=== PATIENT | female | born 1935 | race Caucasian/White ===

== ENCOUNTER 2017-11-10 22:25 | Inpatient (IN) | payer OTHER, MEDICARE ==
--- NOTE | 2017-11-10 22:44 | DR.GENAD ---
HPI - PCP Primary Care Physician: brad - Complaint/Symptoms Chief Complaint Doctors Comments: An 82 y/o female in E.D. via EMS per family request as she took her a.m. set of meds this evening instead of the evening meds. She has no complains. Upon inquiry as to why she did take her meds this morning she states that she just forgot to take meds. today until this evening when her asked her about her medication. When he brought her the pill box she picked the morning meds. instead of the night time pills. Her family thinks that is odd for her. - Nurses notes reviewed Nurses Notes Review: Yes - Source History Provided: Patient, Family Member - Mode of Arrival Mode of Arrival: EMS - Associated Signs and Symptoms Associated Signs and Symptoms: none PMH - PMH Past Medical History: CHF, Hypertension Past Surgical History: Yes Surgical History: Appendectomy - Social History Do you use any recreational Drugs:: No ROS - Review of Systems Constitutional: No Symptoms Reported Eyes: No Symptoms Reported ENTM: No Symptoms Reported Respiratoy: No Symptoms Reported Cardiovascular: No Symptoms Reported Gastrointestinal/Abdominal: No Symptoms Reported Genitourinary: No Symptoms Reported Neurological: No Symptoms Reported Musculoskeletal: No Symptoms Reported Integumentary: No Symptoms Reported Hematologic/Lymphatic: No Symptoms Reported Endocrine: No Symptoms Reported Psychiatric: No Symptoms Reported All Other Systems: Reviewed and Negative PE - Vital Signs Vitals: Temperature 97.9 F Pulse Rate [Apical] 92 Pulse Rate 95 Respiratory Rate 16 Blood Pressure [Right Arm] 170/94 Blood Pressure [Left Arm] 149/65 Blood Pressure 161/72 O2 Sat by Pulse Oximetry 95 - General Limitations: No Limitations General Appearance: Alert, In No Apparent Distress - Head Head Exam: Normal Inspection - Eyes Eye exam: Normal Appearance, PERRL, EOMI - ENT ENT Exam: Normal Exam - Neck Neck Exam: Normal Inspection, Full ROM, Trachea Midline - Chest Chest Inspection: Normal Inspection, Symmetric Chest Wall Rise - Respiratory Respiratory Exam: Normal Lung Sounds Bilat - Cardiovascular Cardiovascular Exam: Regular Rate, Normal Rhythm - Abdominal Exam Abdominal Exam: Normal Inspection, Normal Bowel Sounds, Soft - Extremities Extremities Exam: Normal Inspection - Back Back Exam: Normal Inspection - Neurologic Neurological Exam: Alert, Oriented X3, CN II-XII Intact - Psychiatric Psychiatric Exam: Normal Affect, Normal Mood - Skin Skin Exam: Warm, Intact, Other (There is a healing vertical scar over the right knee. It has no dehiscence. ) Course - Consultation Call Returned: 00:05 Consultation Comments: Dr. Alcaraz agrees request for admission to obs. status - Education/Counseling Education/Counseling: Patient, Family, Counseling Educated On: Treatment, Diagnosis, Prognosis, Needs for Follow Up ROR - Labs Reviewed Result Diagrams: 11/10/17 22:45 11/10/17 22:45 Laboratory: WBC 8.9 X10^3/uL (3.6-10.0) 11/10/17 22:45 RBC 2.92 X10^6/uL (3.5-5.4) L 11/10/17 22:45 Hgb 11.6 g/dL (12.0-16.0) L 11/10/17 22:45 Hct 32.9 % (36.0-47.0) L 11/10/17 22:45 MCV 112.5 fL (80.0-100.0) H 11/10/17 22:45 MCH 39.7 pg (27.0-34.0) H 11/10/17 22:45 MCHC 35.3 g/dL (33.0-35.0) H 11/10/17 22:45 RDW 15.8 % (11.6-16.5) 11/10/17 22:45 Plt Count 319 X10^3/uL (150.0-450.0) 11/10/17 22:45 Plt Count Comment Adequate (ADEQUATE) 11/10/17 22:45 MPV 7.9 fL (7.4-11.0) 11/10/17 22:45 Neut % 82.0 % (42.0-75.0) H 11/10/17 22:45 Lymph % 8.7 % (21.0-51.0) L 11/10/17 22:45 [place] % 5.3 % (0.0-13.0) 11/10/17 22:45 Eos % 2.6 % (0.9-2.9) 11/10/17 22:45 Baso % 1.4 % (0.2-1.0) H 11/10/17 22:45 Neut # 7.3 x10^3/uL (2.2-4.8) H 11/10/17 22:45 Lymph # 0.8 X10^3/uL (1.3-2.9) L 11/10/17 22:45 [place] # 0.5 x10^3/uL (0.3-0.8) 11/10/17 22:45 Eos # 0.2 x10^3/uL (0.0-0.2) 11/10/17 22:45 Baso # 0.1 X10^3/uL (0.0-0.1) 11/10/17 22:45 Absolute Nucleated RBC 0.0 /100WBC 11/10/17 22:45 Plt Morphology Comment Normal (NORMAL) 11/10/17 22:45 RBC Morphology Abnormal (NORMAL) A 11/10/17 22:45 Macrocytosis 2+ A 11/10/17 22:45 Sodium 126 mmol/L (136-145) L 11/10/17 22:45 Corrected Sodium TNP 11/10/17 22:45 Potassium 4.7 mmol/L (3.5-5.1) 11/10/17 22:45 Chloride 92 mmol/L (98-107) L 11/10/17 22:45 Carbon Dioxide 28.8 mmol/L (21-32) 11/10/17 22:45 BUN 11 mg/dL (7-18) 11/10/17 22:45 Creatinine 0.61 mg/dL (0.55-1.02) 11/10/17 22:45 Est GFR (MDRD) Af Amer > 60 (>60) 11/10/17 22:45 Est GFR (MDRD) Non-Af > 60 (>60) 11/10/17 22:45 Glucose 103 mg/dL (65-99) H 11/10/17 22:45 Calcium 8.3 mg/dL (8.5-10.1) L 11/10/17 22:45 Corrected Calcium 8.9 mg/dL (8.5-10.1) 11/10/17 22:45 Total Bilirubin 0.30 mg/dL (0.2-1.0) 11/10/17 22:45 AST 15 Units/L (15-37) 11/10/17 22:45 ALT 15 Units/L (12-78) 11/10/17 22:45 Alkaline Phosphatase 61 Units/L (46-116) 11/10/17 22:45 Total Protein 6.1 g/dL (6.4-8.2) L 11/10/17 22:45 Albumin 3.2 g/dL (3.4-5.0) L 11/10/17 22:45 Globulin 2.9 g/dL (2.5-4.5) 11/10/17 22:45 Albumin/Globulin Ratio 1.1 Ratio (1.1-2.1) 11/10/17 22:45 Specimen Type Clean catch urine 11/10/17 22:57 Urine Color Yellow (YELLOW) 11/10/17 22:57 Urine Appearance Clear (CLEAR) 11/10/17 22:57 Urine pH 8.0 (5.0 - 8.0) 11/10/17 22:57 Ur Specific [place] 1.015 (1.000-1.030) 11/10/17 22:57 Urine Protein Negative (NEGATIVE) 11/10/17 22:57 Urine Glucose (UA) Negative (NEGATIVE) 11/10/17 22:57 Urine Ketones Negative (NEGATIVE) 11/10/17 22:57 Urine Occult Blood Negative (NEGATIVE) 11/10/17 22:57 Urine Nitrite Negative (NEGATIVE) 11/10/17 22:57 Urine Bilirubin Negative (NEGATIVE) 11/10/17 22:57 Urine Urobilinogen Normal (NORMAL) 11/10/17 22:57 Ur Leukocyte Esterase 1+ (NEGATIVE) 11/10/17 22:57 Urine RBC None seen /HPF (NEGATIVE) 11/10/17 22:57 Urine WBC 0-2 /HPF (NEGATIVE) 11/10/17 22:57 Ur Squamous Epith Cells Rare /HPF (NEGATIVE) 11/10/17 22:57 Urine Bacteria Trace /HPF (NEGATIVE) 11/10/17 22:57 Ur Culture Indicated? No/not indicated 11/10/17 22:57 - Diagnosis Discharge Problem: Hyponatremia, Confusion - Discharge Plan Disposition: 09 ADMITTED INPATIENT Condition: Stable - Follow ups/Referrals Follow ups/Referrals: Carlos Gavin [Primary Care Provider] - 3 days - Instructions
[2017-11-10 22:58] LABS: BASOPHILS # (AUTO) 0.1 X10^3/uL (0.0-0.1); BASOPHILS % (AUTO) 1.4 % (0.2-1.0); EOSINOPHILS # (AUTO) 0.2 x10^3/uL (0.0-0.2); EOSINOPHILS % (AUTO) 2.6 % (0.9-2.9); HEMATOCRIT 32.9 % (36.0-47.0); HEMOGLOBIN 11.6 g/dL (12.0-16.0); LYMPHOCYTES # (AUTO) 0.8 X10^3/uL (1.3-2.9); LYMPHOCYTES % (AUTO) 8.7 % (21.0-51.0); MEAN CORPUSCULAR HEMOGLOBIN 39.7 pg (27.0-34.0); MEAN CORPUSCULAR HGB CONC 35.3 g/dL (33.0-35.0); MEAN CORPUSCULAR VOLUME 112.5 fL (80.0-100.0); MEAN PLATELET VOLUME 7.9 fL (7.4-11.0); MONOCYTES # (AUTO) 0.5 x10^3/uL (0.3-0.8); MONOCYTES % (AUTO) 5.3 % (0.0-13.0); NEUTROPHILS # (AUTO) 7.3 x10^3/uL (2.2-4.8); PLATELET COUNT 319 X10^3/uL (150.0-450.0); RED BLOOD COUNT 2.92 X10^6/uL (3.5-5.4); RED CELL DISTRIBUTION WIDTH 15.8 % (11.6-16.5); WHITE BLOOD COUNT 8.9 X10^3/uL (3.6-10.0)
--- NOTE | 2017-11-10 23:04 | RAD ---
Chest, one view Indication: Hypertension, CHF Comparison: 01/19/2015 Findings: The heart size is normal. No focal consolidation, significant effusion or pneumothorax is i dentified. No acute osseous abnormality is seen. Impression: No acute cardiopulmonary abnormality. Reported By:
[2017-11-10 23:06] LABS: BILIRUBIN,URINE NEGATIVE (NEGATIVE); BLOOD/HEMOGLOBIN,URINE NEGATIVE (NEGATIVE); GLUCOSE, URINE NEGATIVE (NEGATIVE); KETONES,URINE NEGATIVE (NEGATIVE); LEUKOCYTE ESTERASE ,URINE 1+ (NEGATIVE); NITRITES,URINE NEGATIVE (NEGATIVE); PROTEIN,URINE NEGATIVE (NEGATIVE); UROBILINOGEN,URINE NORMAL (NORMAL)
[2017-11-10 23:06] LABS: ALANINE AMINOTRANSFERASE 15 Units/L (12-78); ALBUMIN 3.2 g/dL (3.4-5.0); ALKALINE PHOSPHATASE 61 Units/L (46-116); ASPARTATE AMINO TRANSFERASE 15 Units/L (15-37); BLOOD UREA NITROGEN 11 mg/dL (7-18); CALCIUM 8.3 mg/dL (8.5-10.1); CARBON DIOXIDE 28.8 mmol/L (21-32); CHLORIDE 92 mmol/L (98-107); COR CA(FOR HYPOALB) 8.9 mg/dL (8.5-10.1); CREATININE 0.61 mg/dL (0.55-1.02); SODIUM 126 mmol/L (136-145); TOTAL PROTEIN 6.1 g/dL (6.4-8.2); eGFR BLACK RACES > 60 (>60); eGFR NON BLACK RACES > 60 (>60)
[2017-11-10 23:17] LABS: APPEARANCE,URINE CLEAR (CLEAR); BACTERIA,URINE TRACE /HPF (NEGATIVE); COLOR,URINE YELLOW (YELLOW); RBC,URINE NONE SEEN /HPF (NEGATIVE); SQUAMOUS EPITHELIAL CELL,UR RARE /HPF (NEGATIVE)
[2017-11-10 23:19] LABS: PLATELET MORPHOLOGY COMMENT NORMAL (NORMAL)
[2017-11-10] MEDS: NS 1000 ML 1,000 ML IV SCH (23:42)
[2017-11-11] MEDS: NS 1000 ML 1,000 ML IV SCH ×4 (01:13→21:04)
[2017-11-11 01:27] VITALS: BMI 20.7
[2017-11-11 05:44] LABS: ALANINE AMINOTRANSFERASE 14 Units/L (12-78); ALBUMIN 2.9 g/dL (3.4-5.0); ALKALINE PHOSPHATASE 65 Units/L (46-116); ASPARTATE AMINO TRANSFERASE 16 Units/L (15-37); BLOOD UREA NITROGEN 9 mg/dL (7-18); CALCIUM 7.8 mg/dL (8.5-10.1); CHLORIDE 95 mmol/L (98-107); COR CA(FOR HYPOALB) 8.7 mg/dL (8.5-10.1); CREATININE 0.51 mg/dL (0.55-1.02); SODIUM 127 mmol/L (136-145); TOTAL PROTEIN 5.7 g/dL (6.4-8.2); eGFR BLACK RACES > 60 (>60); eGFR NON BLACK RACES > 60 (>60)
[2017-11-11] MEDS: SYNTHROID 75 mcg TAB PO SCH (16:49)
--- NOTE | 2017-11-11 19:13 | CT ---
CT head without contrast Indication: Confusion Technique: Axial images from the skullbase to the vertex without contrast. Coronal and sagittal refor mats provided. Comparison: None available Findings: There is no acute intracranial hemorrhage, mass or mass effect. No extra-axial fluid collec tion or abnormal area of hypoattenuation suggest infarction seen. Mild atrophy with ex vacuo ventricl e and sulcal enlargement noted. Review of bone windows demonstrates no destructive osseous lesion. Th ere is opacification of the left maxillary sinus. The remaining sinuses are clear. Mastoid air cells are clear. Impression: 1. No acute intracranial hemorrhage, with mild atrophic change. 2. Opacification of the left maxillary sinus, likely chronic. Reported By:
[2017-11-11] MEDS: HYDREA PO SCH (20:43)
[2017-11-11] MEDS: ALTACE CAP 10 MG PO SCH (20:43)
[2017-11-11] MEDS: COREG TAB 6.25 MG PO SCH (20:43)
[2017-11-11] MEDS ORDERED: RESTORIL CAP 15 MG PO PRN (20:49)
[2017-11-12] MEDS: NS 1000 ML 1,000 ML IV SCH (04:57)
[2017-11-12 06:17] LABS: BASOPHILS # (AUTO) 0.1 X10^3/uL (0.0-0.1); BASOPHILS % (AUTO) 1.2 % (0.2-1.0); EOSINOPHILS # (AUTO) 0.2 x10^3/uL (0.0-0.2); EOSINOPHILS % (AUTO) 2.2 % (0.9-2.9); HEMATOCRIT 31.6 % (36.0-47.0); LYMPHOCYTES # (AUTO) 0.9 X10^3/uL (1.3-2.9); LYMPHOCYTES % (AUTO) 12.8 % (21.0-51.0); MEAN CORPUSCULAR HEMOGLOBIN 39.6 pg (27.0-34.0); MEAN CORPUSCULAR HGB CONC 34.9 g/dL (33.0-35.0); MEAN CORPUSCULAR VOLUME 113.5 fL (80.0-100.0); MEAN PLATELET VOLUME 8.3 fL (7.4-11.0); MONOCYTES # (AUTO) 0.4 x10^3/uL (0.3-0.8); NEUTROPHILS # (AUTO) 5.3 x10^3/uL (2.2-4.8); NEUTROPHILS % (AUTO) 77.8 % (42.0-75.0); PLATELET COUNT 287 X10^3/uL (150.0-450.0); RED BLOOD COUNT 2.78 X10^6/uL (3.5-5.4); WHITE BLOOD COUNT 6.8 X10^3/uL (3.6-10.0)
[2017-11-12 06:23] LABS: ALANINE AMINOTRANSFERASE 15 Units/L (12-78); ALKALINE PHOSPHATASE 49 Units/L (46-116); ASPARTATE AMINO TRANSFERASE 15 Units/L (15-37); BLOOD UREA NITROGEN 6 mg/dL (7-18); CARBON DIOXIDE 26.9 mmol/L (21-32); CHLORIDE 96 mmol/L (98-107); COR CA(FOR HYPOALB) 8.8 mg/dL (8.5-10.1); CREATININE 0.56 mg/dL (0.55-1.02); SODIUM 129 mmol/L (136-145); TOTAL PROTEIN 5.9 g/dL (6.4-8.2); eGFR BLACK RACES > 60 (>60); eGFR NON BLACK RACES > 60 (>60)
[2017-11-12 06:52] LABS: PLATELET MORPHOLOGY COMMENT NORMAL (NORMAL)
[2017-11-12] MEDS: SYNTHROID 75 mcg TAB PO SCH (08:55)
[2017-11-12] MEDS: ALTACE CAP 10 MG PO SCH (08:55)
[2017-11-12] MEDS: HYDREA PO SCH (08:55)
[2017-11-12] MEDS: COREG TAB 6.25 MG PO SCH (08:56)
[2017-11-12] MEDS ORDERED: FOLIC ACID 0.4 MG PO SCH (09:00)
[2017-11-12] MEDS ORDERED: FOLIC ACID TAB 1 MG PO SCH (09:00)
[2017-11-12] MEDS ORDERED: TAB-A-VITE PO SCH (09:00)
[2017-11-12 10:19] VITALS: BP 146/67
== END 2017-11-12 15:10 | disposition home or self-care (01) | DRG 641 ==
LOC: ER 22:28 → OBSVTOIN 11-11 00:15 → MED/SURG 11-11 00:15
PROVIDERS: ADMIT Internal Medicine; ATTEND Internal Medicine
DX: E87.1 Hypo-osmolality and hyponatremia (principal); I10 Essential (primary) hypertension; R41.82 Altered mental status, unspecified; E03.8 Other specified hypothyroidism; I50.9 Heart failure, unspecified; F03.90 Unspecified dementia, unspecified severity, without behavioral disturbance, psychotic disturbance, mood disturbance, and anxiety
CPT/HCPCS: 36415; 70450; 71010; 80053; 81001; 85025; 96365; 96367; 99221; 99238; 99283; 99284; A4216; A4222; S0176

== ENCOUNTER 2017-11-17 10:56 | Emergency (ER) | payer OTHER, MEDICARE ==
[2017-11-17 11:06] VITALS: BP 159/69; BMI 17.2
--- NOTE | 2017-11-17 11:15 | DR.GENAD ---
HPI - PCP Primary Care Physician: brad - Complaint/Symptoms Chief Complaint Doctors Comments: Patient was admitted on last week for hyponatremia diagnosis of dyspnea,chest pain, confusion and hyponatremia. She presents with conplaint that she is acting like she did on last week. She says things that are not related to any conversation; she reaches out to shake your hand several times during a conversation, she repeats things that are unrelated to conversation. The son-In- Chief Complaint:: "pt family said pt was altered and feel in the shower" Self Treatment fo Chief Complaint: pt knows were she is and is able to answer all questions she said she dont know why she came she was just hungry. no sing of fall on pt - Source History Provided: Patient - Mode of Arrival Mode of Arrival: EMS - Timing Onset of Chief Complaint: 11/17/17 PMH - PMH Past Medical History: Yes Past Medical History: CHF, Hypertension Past Surgical History: Yes Surgical History: Ortho Surgery - Family History History of Family Medical Conditions: No - Social History Does patient currently use any type of tobacco product: No Have you used tobacco products in the last 12 months: No Type of Tobacco Use: None Does any household member use tobacco: No Alcohol Use: None Do you use any recreational Drugs:: No Lives With: Family Lives Where: Home - infectious screening In the last 2 months have you had wt loss of >10#?: NO Have you had fever, night sweats or hemotysis?: No Have you traveled outside the country in the last 6 months?: No Isolation: Standard PE - Vital Signs Vitals: Temperature 98.1 F Pulse Rate 93 Respiratory Rate 18 Blood Pressure [Right Arm] 147/67 Blood Pressure [Left Arm] 146/67 Blood Pressure 159/69 O2 Sat by Pulse Oximetry 97 Course - Treatment Treatment: Patient hydrated with 1L NS, - Consultation Called: 15:10 (Discussed with Dr Alcaraz he thinks patients problem is more dementia can be managed as out patient ) ROR - Labs Reviewed Result Diagrams: 11/17/17 11:25 11/17/17 11:25 Laboratory: WBC 9.2 X10^3/uL (3.6-10.0) 11/17/17 11:25 RBC 3.24 X10^6/uL (3.5-5.4) L 11/17/17 11:25 Hgb 12.6 g/dL (12.0-16.0) 11/17/17 11:25 Hct 36.8 % (36.0-47.0) 11/17/17 11:25 MCV 113.5 fL (80.0-100.0) H 11/17/17 11:25 MCH 38.9 pg (27.0-34.0) H 11/17/17 11:25 MCHC 34.3 g/dL (33.0-35.0) 11/17/17 11:25 RDW 15.7 % (11.6-16.5) 11/17/17 11:25 Plt Count 308 X10^3/uL (150.0-450.0) 11/17/17 11:25 Plt Count Comment Adequate (ADEQUATE) 11/17/17 11:25 MPV 8.2 fL (7.4-11.0) 11/17/17 11:25 Neut % 84.5 % (42.0-75.0) H 11/17/17 11:25 Lymph % 8.1 % (21.0-51.0) L 11/17/17 11:25 [place] % 4.2 % (0.0-13.0) 11/17/17 11:25 Eos % 2.1 % (0.9-2.9) 11/17/17 11:25 Baso % 1.1 % (0.2-1.0) H 11/17/17 11:25 Neut # 7.8 x10^3/uL (2.2-4.8) H 11/17/17 11:25 Lymph # 0.7 X10^3/uL (1.3-2.9) L 11/17/17 11:25 [place] # 0.4 x10^3/uL (0.3-0.8) 11/17/17 11:25 Eos # 0.2 x10^3/uL (0.0-0.2) 11/17/17 11:25 Baso # 0.1 X10^3/uL (0.0-0.1) 11/17/17 11:25 Absolute Nucleated RBC 0.1 /100WBC 11/17/17 11:25 Plt Morphology Comment Normal (NORMAL) 11/17/17 11:25 RBC Morphology Abnormal (NORMAL) A 11/17/17 11:25 Anisocytosis Slight A 11/17/17 11:25 Macrocytosis 2+ A 11/17/17 11:25 Sodium 129 mmol/L (136-145) L 11/17/17 11:25 Corrected Sodium TNP 11/17/17 11:25 Potassium 4.7 mmol/L (3.5-5.1) 11/17/17 11:25 Chloride 94 mmol/L (98-107) L 11/17/17 11:25 Carbon Dioxide 31.1 mmol/L (21-32) 11/17/17 11:25 BUN 6 mg/dL (7-18) L 11/17/17 11:25 Creatinine 0.66 mg/dL (0.55-1.02) 11/17/17 11:25 Est GFR (MDRD) Af Amer > 60 (>60) 11/17/17 11:25 Est GFR (MDRD) Non-Af > 60 (>60) 11/17/17 11:25 Glucose 108 mg/dL (65-99) H 11/17/17 11:25 Calcium 8.7 mg/dL (8.5-10.1) 11/17/17 11:25 Corrected Calcium 9.3 mg/dL (8.5-10.1) 11/17/17 11:25 Total Bilirubin 0.70 mg/dL (0.2-1.0) 11/17/17 11:25 AST 19 Units/L (15-37) 11/17/17 11:25 ALT 16 Units/L (12-78) 11/17/17 11:25 Alkaline Phosphatase 55 Units/L (46-116) 11/17/17 11:25 Creatine Kinase 27 Units/L (26-192) 11/17/17 11:25 CK-MB (CK-2) < 1.0 ng/mL (0-4.0) 11/17/17 11:25 CK/CKMB % Calc 3.7 % (<4) 11/17/17 11:25 Troponin I < 0.02 ng/mL (0-1.5) 11/17/17 11:25 Total Protein 6.4 g/dL (6.4-8.2) 11/17/17 11:25 Albumin 3.2 g/dL (3.4-5.0) L 11/17/17 11:25 Globulin 3.2 g/dL (2.5-4.5) 11/17/17 11:25 Albumin/Globulin Ratio 1.0 Ratio (1.1-2.1) L 11/17/17 11:25 TSH 3rd Generation 2.545 uIU/mL (0.358-3.74) 11/17/17 11:25 Specimen Type Random urine 11/17/17 13:11 Urine Color Yellow (YELLOW) 11/17/17 13:11 Urine Appearance Slightly hazy (CLEAR) 11/17/17 13:11 Urine pH 8.0 (5.0 - 8.0) 11/17/17 13:11 Ur Specific [place] 1.015 (1.000-1.030) 11/17/17 13:11 Urine Protein 1+ (NEGATIVE) 11/17/17 13:11 Urine Glucose (UA) Negative (NEGATIVE) 11/17/17 13:11 Urine Ketones 3+ (NEGATIVE) 11/17/17 13:11 Urine Occult Blood 2+ (NEGATIVE) 11/17/17 13:11 Urine Nitrite Negative (NEGATIVE) 11/17/17 13:11 Urine Bilirubin Negative (NEGATIVE) 11/17/17 13:11 Urine Urobilinogen Normal (NORMAL) 11/17/17 13:11 Ur Leukocyte Esterase Negative (NEGATIVE) 11/17/17 13:11 Urine RBC 0 - 3 /HPF (NEGATIVE) 11/17/17 13:11 Urine WBC Rare /HPF (NEGATIVE) 11/17/17 13:11 Ur Squamous Epith Cells Few /HPF (NEGATIVE) 11/17/17 13:11 Urine Bacteria Negative /HPF (NEGATIVE) 11/17/17 13:11 Ur Culture Indicated? No/not indicated 11/17/17 13:11 - Discharge Plan Condition: Stable - Follow ups/Referrals Follow ups/Referrals: Carlos Gavin [Primary Care Provider] - 3 days - Instructions
[2017-11-17 11:47] LABS: BASOPHILS # (AUTO) 0.1 X10^3/uL (0.0-0.1); BASOPHILS % (AUTO) 1.1 % (0.2-1.0); EOSINOPHILS # (AUTO) 0.2 x10^3/uL (0.0-0.2); EOSINOPHILS % (AUTO) 2.1 % (0.9-2.9); HEMATOCRIT 36.8 % (36.0-47.0); HEMOGLOBIN 12.6 g/dL (12.0-16.0); LYMPHOCYTES # (AUTO) 0.7 X10^3/uL (1.3-2.9); LYMPHOCYTES % (AUTO) 8.1 % (21.0-51.0); MEAN CORPUSCULAR HEMOGLOBIN 38.9 pg (27.0-34.0); MEAN CORPUSCULAR HGB CONC 34.3 g/dL (33.0-35.0); MEAN CORPUSCULAR VOLUME 113.5 fL (80.0-100.0); MEAN PLATELET VOLUME 8.2 fL (7.4-11.0); MONOCYTES # (AUTO) 0.4 x10^3/uL (0.3-0.8); MONOCYTES % (AUTO) 4.2 % (0.0-13.0); NEUTROPHILS # (AUTO) 7.8 x10^3/uL (2.2-4.8); NEUTROPHILS % (AUTO) 84.5 % (42.0-75.0); PLATELET COUNT 308 X10^3/uL (150.0-450.0); RED BLOOD COUNT 3.24 X10^6/uL (3.5-5.4); RED CELL DISTRIBUTION WIDTH 15.7 % (11.6-16.5); WHITE BLOOD COUNT 9.2 X10^3/uL (3.6-10.0)
[2017-11-17 12:05] LABS: BLOOD UREA NITROGEN 6 mg/dL (7-18); CALCIUM 8.7 mg/dL (8.5-10.1); CARBON DIOXIDE 31.1 mmol/L (21-32); CHLORIDE 94 mmol/L (98-107); CREATININE 0.66 mg/dL (0.55-1.02); SODIUM 129 mmol/L (136-145); TROPONIN I < 0.02 ng/mL (0-1.5); eGFR BLACK RACES > 60 (>60); eGFR NON BLACK RACES > 60 (>60)
[2017-11-17 12:09] LABS: ANISOCYTOSIS SLIGHT; PLATELET MORPHOLOGY COMMENT NORMAL (NORMAL)
[2017-11-17 12:20] LABS: ALANINE AMINOTRANSFERASE 16 Units/L (12-78); ALBUMIN 3.2 g/dL (3.4-5.0); ALKALINE PHOSPHATASE 55 Units/L (46-116); ASPARTATE AMINO TRANSFERASE 19 Units/L (15-37); CKMB % 3.7 % (<4); COR CA(FOR HYPOALB) 9.3 mg/dL (8.5-10.1); CREATINE KINASE 27 Units/L (26-192); CREATINE KINASE MB < 1.0 ng/mL (0-4.0); TOTAL PROTEIN 6.4 g/dL (6.4-8.2)
[2017-11-17 13:18] LABS: BILIRUBIN,URINE NEGATIVE (NEGATIVE); BLOOD/HEMOGLOBIN,URINE 2+ (NEGATIVE); GLUCOSE, URINE NEGATIVE (NEGATIVE); KETONES,URINE 3+ (NEGATIVE); LEUKOCYTE ESTERASE ,URINE NEGATIVE (NEGATIVE); NITRITES,URINE NEGATIVE (NEGATIVE); PROTEIN,URINE 1+ (NEGATIVE); UROBILINOGEN,URINE NORMAL (NORMAL)
[2017-11-17 13:52] LABS: APPEARANCE,URINE SLIGHTLY HAZY (CLEAR); BACTERIA,URINE NEGATIVE /HPF (NEGATIVE); COLOR,URINE YELLOW (YELLOW); RBC,URINE 0 - 3 /HPF (NEGATIVE); SQUAMOUS EPITHELIAL CELL,UR FEW /HPF (NEGATIVE)
[2017-11-17] MEDS ORDERED: NS 1000 ML 1,000 ML ONE (14:05)
[2017-11-17] MEDS ORDERED: NS 1000 ML 1,000 ML IV ONE (14:23)
[2017-11-17 16:07] LABS: BLOOD UREA NITROGEN 7 mg/dL (7-18); CALCIUM 8.1 mg/dL (8.5-10.1); CARBON DIOXIDE 30.1 mmol/L (21-32); CHLORIDE 97 mmol/L (98-107); CREATININE 0.53 mg/dL (0.55-1.02); SODIUM 130 mmol/L (136-145); eGFR BLACK RACES > 60 (>60); eGFR NON BLACK RACES > 60 (>60)
== END 2017-11-17 17:03 | disposition home or self-care (01) ==
LOC: ER 10:58
DX: E87.1 Hypo-osmolality and hyponatremia (principal); I50.89 Other heart failure; I10 Essential (primary) hypertension
CPT/HCPCS: 36415; 80048; 80053; 81001; 82550; 82553; 84443; 84484; 85025; 93005; 93010; 96365; 96367; 99282; 99283; A4222

== ENCOUNTER 2017-11-22 13:37 | Inpatient (IN) | payer OTHER, MEDICARE ==
[2017-11-22 13:50] VITALS: BMI 23.1
--- NOTE | 2017-11-22 13:58 | DR.GENAD ---
HPI - PCP Primary Care Physician: DARION REILLY - HPI Comment HPI Comment: PATIENT LEFT HOSPITAL RECENT FOR HYPONATREMIA AND CONFUSION. NO FEVER. - Complaint/Symptoms Chief Complaint Doctors Comments: GENERALIZE WEAKNESS AND INCREASING CONFUSION TIMES FEW WEEKS. Chief Complaint:: PTS FAMILY STATES THE WEEKEND BEFORE [facility] , PT STARTED HAVING AMS, CONFUSION, PTS FAMILY STATES SHE HAS BEEN UP FOR 2 NIGTS,, - Nurses notes reviewed Nurses Notes Review: Yes - Source History Provided: Patient - Mode of Arrival Mode of Arrival: Wheelchair - Timing Onset of Chief Complaint: 11/06/17 Came on: Suddenly - Duration Duration: Constant Duration: Days - Severity Severity: Moderate PMH - PMH Past Medical History: Yes Past Medical History: CHF, Hypertension Past Surgical History: Yes Surgical History: Ortho Surgery - Family History History of Family Medical Conditions: No - Social History Does patient currently use any type of tobacco product: No Have you used tobacco products in the last 12 months: No Type of Tobacco Use: None Does any household member use tobacco: No Alcohol Use: None Do you use any recreational Drugs:: No Lives Where: Home - infectious screening In the last 2 months have you had wt loss of >10#?: NO Have you had fever, night sweats or hemotysis?: No Have you traveled outside the country in the last 6 months?: No Isolation: Standard ROS - Review of Systems Constitutional: Weakness, Fatigue, Loss of Appetite. negative: Chills, Fever Eyes: negative: Eye Pain, Discharge ENTM: negative: Ear Pain, Nose Discharge, Nose Congestion, Throat Pain Respiratoy: Short of Breath. negative: Productive Cough, Non-Productive Cough, Wheezing, Hemoptysis Cardiovascular: negative: Chest Pain, Edema Gastrointestinal/Abdominal: negative: Abdominal Pain, Diarrhea, Nausea, Vomiting Genitourinary: negative: Hematuria Neurological: Weakness Musculoskeletal: No Symptoms Reported Integumentary: No Symptoms Reported Hematologic/Lymphatic: No Symptoms Reported Endocrine: No Symptoms Reported All Other Systems: Reviewed and Negative PE - Vital Signs Vitals: Temperature 96.4 F Pulse Rate 110 Respiratory Rate 20 Blood Pressure [Right Arm] 147/67 Blood Pressure [Left Arm] 146/67 Blood Pressure 185/105 O2 Sat by Pulse Oximetry 94 - General Limitations: No Limitations General Appearance: Alert - Head Head Exam: Normal Inspection - Eyes Eye exam: Normal Appearance - ENT ENT Exam: Normal External Ear Exam External Ear Exam: Normal External Inspection TM/Canal Exam: Bilateral Normal Nose Exam: Normal Nose Exam Mouth Exam: Normal Inspection Throat Exam: Normal Inspection - Neck Neck Exam: Trachea Midline - Chest Chest Inspection: Symmetric Chest Wall Rise - Respiratory Respiratory Exam: Normal Lung Sounds Bilat Respiratory Exam: Bilateral Rhonchi, Lower Rhonchi - Cardiovascular Cardiovascular Exam: Regular Rate, Normal Rhythm, Normal Heart Sounds - Abdominal Exam Abdominal Exam: Normal Bowel Sounds, Soft. negative: Tenderness - Extremities Extremities Exam: Normal Inspection - Back Back Exam: Normal Inspection - Neurologic Neurological Exam: Alert, Other (CONFUSE) - Psychiatric Psychiatric Exam: Flat Affect - Skin Skin Exam: Normal Color MDM - Additional Information Additional Information Obtained From: Family - Differential Diagnosis Differential Diagnosis: CVA, DEMENTIA, UTI, TIA, HTN Course - Consultation Consultation Comments: DISCUSS PATIENT WITH DR. ORLANDO. HE WILL ADMIT PATIENT. - Education/Counseling Education/Counseling: Patient, Education Educated On: Treatment, Diagnosis ROR - Labs Reviewed Result Diagrams: 11/22/17 14:32 11/22/17 14:32 - XRAY XRAY Interpreted by: Radiologist XRAY Findings: REPORT DISCUSS WITH PATIENT AND HER FAMILY. - EKG Rhythm: NSR (EKG NOTED) - Diagnosis Discharge Problem: Hyponatremia, Dehydration Mental status alteration Qualifiers: Altered mental status type: transient alteration of awareness Qualified Code(s) : R40.4 - Transient alteration of awareness HTN (hypertension) Qualifiers: Hypertension type: essential hypertension Qualified Code(s): I10 - Essential ( primary) hypertension - Discharge Plan Disposition: HOME, SELF-CARE Condition: Stable - Follow ups/Referrals - Instructions
[2017-11-22 14:38] LABS: BASOPHILS # (AUTO) 0.1 X10^3/uL (0.0-0.1); BASOPHILS % (AUTO) 0.5 % (0.2-1.0); EOSINOPHILS # (AUTO) 0.1 x10^3/uL (0.0-0.2); EOSINOPHILS % (AUTO) 0.4 % (0.9-2.9); HEMATOCRIT 37.4 % (36.0-47.0); LYMPHOCYTES # (AUTO) 0.9 X10^3/uL (1.3-2.9); LYMPHOCYTES % (AUTO) 5.5 % (21.0-51.0); MEAN CORPUSCULAR HEMOGLOBIN 38.7 pg (27.0-34.0); MEAN CORPUSCULAR HGB CONC 34.8 g/dL (33.0-35.0); MEAN CORPUSCULAR VOLUME 111.4 fL (80.0-100.0); MEAN PLATELET VOLUME 7.7 fL (7.4-11.0); MONOCYTES # (AUTO) 0.8 x10^3/uL (0.3-0.8); NEUTROPHILS # (AUTO) 14.4 x10^3/uL (2.2-4.8); NEUTROPHILS % (AUTO) 88.6 % (42.0-75.0); PLATELET COUNT 386 X10^3/uL (150.0-450.0); RED BLOOD COUNT 3.36 X10^6/uL (3.5-5.4); RED CELL DISTRIBUTION WIDTH 16.1 % (11.6-16.5); WHITE BLOOD COUNT 16.2 X10^3/uL (3.6-10.0)
[2017-11-22 14:51] LABS: BAND NEUTROPHILS % 2 % (0-10); PLATELET MORPHOLOGY COMMENT NORMAL (NORMAL)
[2017-11-22 15:00] LABS: ALANINE AMINOTRANSFERASE 16 Units/L (12-78); ALBUMIN 3.5 g/dL (3.4-5.0); ALKALINE PHOSPHATASE 60 Units/L (46-116); ASPARTATE AMINO TRANSFERASE 21 Units/L (15-37); BLOOD UREA NITROGEN 11 mg/dL (7-18); CALCIUM 9.3 mg/dL (8.5-10.1); CARBON DIOXIDE 25.6 mmol/L (21-32); CHLORIDE 90 mmol/L (98-107); CKMB % 3.5 % (<4); COR NA(FOR HYPERGLY) 126 mmol/L (136-145); CREATINE KINASE 46 Units/L (26-192); CREATINE KINASE MB 1.6 ng/mL (0-4.0); CREATININE 0.67 mg/dL (0.55-1.02); TOTAL PROTEIN 6.8 g/dL (6.4-8.2); TROPONIN I 0.03 ng/mL (0-1.5); eGFR BLACK RACES > 60 (>60); eGFR NON BLACK RACES > 60 (>60)
[2017-11-22 15:02] LABS: SODIUM 125 mmol/L (136-145)
--- NOTE | 2017-11-22 15:05 | RAD ---
Examination: Portable AP chest History: Dementia, confusion, CHF and hypertension Comparison 11/10/2017 Findings: Continued normal heart size with clear lungs and pleural spaces. Impression: No change; no acute disease. Reported By:
--- NOTE | 2017-11-22 15:19 | CT ---
CT head without contrast Indication: Dementia, confusion Technique: Helical CT images of the brain were obtained without IV contrast. Reformatted images in th e coronal and sagittal planes were also generated for review. Comparison: 11/11/2017 Findings: There is no intracranial hemorrhage, visible acute infarct, focal or generalized edema, ext ra-axial collection, hydrocephalus or mass. There is stable age-appropriate cerebral atrophy with pro portional compensatory ventricular and sulcal enlargement. Patchy areas of periventricular and subcor tical white matter hypoattenuation, suggestive for microangiopathic disease also appear similar. Ther e is complete opacification of the left maxillary sinus. The remaining visualized paranasal sinuses a nd mastoid air cells are clear. No acute osseous or soft tissue abnormality is identified. Impression: No acute intracranial abnormality. Stable age-appropriate atrophy and microangiopathic disease. Unchanged opacification of the left maxillary sinus, compatible with chronic sinusitis. Reported By:
[2017-11-22] MEDS: NS 1000 ML 1,000 ML IV SCH (15:51)
[2017-11-22] MEDS ORDERED: RESTORIL CAP 15 MG PO PRN (19:26)
[2017-11-22 20:27] LABS: BILIRUBIN,URINE NEGATIVE (NEGATIVE); BLOOD/HEMOGLOBIN,URINE 3+ (NEGATIVE); GLUCOSE, URINE 2+ (NEGATIVE); KETONES,URINE 3+ (NEGATIVE); LEUKOCYTE ESTERASE ,URINE NEGATIVE (NEGATIVE); NITRITES,URINE NEGATIVE (NEGATIVE); PH,URINE 6.5 (5.0 - 8.0); PROTEIN,URINE 2+ (NEGATIVE); UROBILINOGEN,URINE NORMAL (NORMAL)
[2017-11-22 20:46] LABS: APPEARANCE,URINE CLEAR (CLEAR); BACTERIA,URINE NEGATIVE /HPF (NEGATIVE); COLOR,URINE YELLOW (YELLOW); MUCUS,URINE FEW /HPF (NEGATIVE); RBC,URINE 0-3 /HPF (NEGATIVE); SQUAMOUS EPITHELIAL CELL,UR FEW /HPF (NEGATIVE)
[2017-11-23 00:03] LABS: CKMB % 3.2 % (<4); CREATINE KINASE MB 1.1 ng/mL (0-4.0); TROPONIN I 0.03 ng/mL (0-1.5)
[2017-11-23] MEDS: NS 1000 ML 1,000 ML IV SCH ×5 (00:18→19:30)
[2017-11-23 06:04] LABS: CKMB % 3.2 % (<4); CREATINE KINASE MB 1.2 ng/mL (0-4.0); TROPONIN I 0.02 ng/mL (0-1.5)
[2017-11-23 06:07] LABS: ALANINE AMINOTRANSFERASE 14 Units/L (12-78); ALBUMIN 2.7 g/dL (3.4-5.0); ALKALINE PHOSPHATASE 49 Units/L (46-116); ASPARTATE AMINO TRANSFERASE 18 Units/L (15-37); BLOOD UREA NITROGEN 9 mg/dL (7-18); CALCIUM 7.9 mg/dL (8.5-10.1); CARBON DIOXIDE 24.6 mmol/L (21-32); CHLORIDE 95 mmol/L (98-107); COR CA(FOR HYPOALB) 8.9 mg/dL (8.5-10.1); CREATININE 0.59 mg/dL (0.55-1.02); MAGNESIUM 1.6 mg/dL (1.7-2.9); SODIUM 127 mmol/L (136-145); TOTAL PROTEIN 5.3 g/dL (6.4-8.2); eGFR BLACK RACES > 60 (>60); eGFR NON BLACK RACES > 60 (>60)
[2017-11-23 06:36] LABS: BASOPHILS # (AUTO) 0.1 X10^3/uL (0.0-0.1); BASOPHILS % (AUTO) 0.6 % (0.2-1.0); EOSINOPHILS # (AUTO) 0.1 x10^3/uL (0.0-0.2); EOSINOPHILS % (AUTO) 0.7 % (0.9-2.9); HEMATOCRIT 31.5 % (36.0-47.0); LYMPHOCYTES # (AUTO) 1.1 X10^3/uL (1.3-2.9); LYMPHOCYTES % (AUTO) 9.4 % (21.0-51.0); MEAN CORPUSCULAR HEMOGLOBIN 39.5 pg (27.0-34.0); MEAN CORPUSCULAR HGB CONC 34.9 g/dL (33.0-35.0); MEAN CORPUSCULAR VOLUME 113.2 fL (80.0-100.0); MEAN PLATELET VOLUME 8.3 fL (7.4-11.0); MONOCYTES # (AUTO) 0.7 x10^3/uL (0.3-0.8); NEUTROPHILS # (AUTO) 9.5 x10^3/uL (2.2-4.8); NEUTROPHILS % (AUTO) 83.3 % (42.0-75.0); PLATELET COUNT 291 X10^3/uL (150.0-450.0); RED BLOOD COUNT 2.79 X10^6/uL (3.5-5.4); RED CELL DISTRIBUTION WIDTH 15.8 % (11.6-16.5); WHITE BLOOD COUNT 11.4 X10^3/uL (3.6-10.0)
[2017-11-23] MEDS ORDERED: K-LYTE EFFERVESCENT PO PRN (06:54)
[2017-11-23] MEDS ORDERED: POTASSIUM CHL 60 MEQ/NS 0.45% 500 ML IV PRN (06:54)
[2017-11-23] MEDS ORDERED: POTASSIUM CHL 40 MEQ/NS 0.45% 500 ML IV PRN (06:54)
[2017-11-23 07:02] LABS: PLATELET MORPHOLOGY COMMENT NORMAL (NORMAL)
[2017-11-23] MEDS: MAGNESIUM SULFATE 1 GM/100 mL PREMIX 1 GM/100 ML BAG IV PRN ×2 (10:14→11:10)
[2017-11-23] MEDS ORDERED: FOLIC ACID 0.4 MG PO SCH (10:15)
[2017-11-23] MEDS: SYNTHROID 75 mcg TAB PO SCH (10:38)
[2017-11-23] MEDS: TAB-A-VITE PO SCH (11:08)
[2017-11-23] MEDS: ALTACE CAP 10 MG PO SCH ×2 (11:08→20:26)
[2017-11-23] MEDS: FOLIC ACID TAB 1 MG PO SCH (11:08)
[2017-11-23] MEDS: EVISTA PO SCH (11:08)
[2017-11-23] MEDS: HYDREA PO SCH ×2 (11:08→20:26)
[2017-11-23] MEDS: COREG TAB 6.25 MG PO SCH ×2 (11:08→20:26)
[2017-11-23] MEDS: ECOTRIN TAB 325 MG PO SCH ×2 (11:08→20:26)
--- NOTE | 2017-11-23 16:20 | MRI ---
HISTORY: Altered mental status. Study: MRI brain without contrast. Comparison: CT head dated November 22, 2017. Technique: Multiplanar multi-sequence MRI of the brain was obtained utilizing standard departmental p rotocol. Sagittal and axial T1 weighted images were obtained. Axial T2 and flair weighted images we re performed as well. Axial diffusion weighted and ADC trace mapping was performed. Findings: Age-related cortical atrophy and chronic small vessel ischemic changes. The midline structures appear unremarkable. The evaluation of the brain parenchyma demonstrates no abnormal signal characteristic s to suggest intraparenchymal mass or hemorrhage. No extra-axial fluid collections are observed. Th e ventricular system appears symmetric and nondilated. The CP angle is normal in its appearance wit hout brainstem mass or evidence for acoustic neuroma. The flow voids on both T1 and T2 weighted imag ing appear unremarkable. Evaluation of the diffusion weighted imaging does not demonstrate abnormal signal characteristics to suggest acute ischemic change. Chronic left maxillary sinus disease appear s unchanged. Remaining visualized paranasal sinuses and mastoid air cells are clear. The osseous stru ctures appear intact. IMPRESSION: Unremarkable MRI of the brain without contrast. Reported By:
[2017-11-23] MEDS: ZOCOR TAB 10 MG PO SCH (20:26)
[2017-11-23] MEDS ORDERED: KLONOPIN TAB 0.5 MG PO SCH (21:00)
--- NOTE | 2017-11-23 21:48 | DR.H&P ---
H&P - History & Physical for Day of: H&P Date: 11/22/17 - Chief Complaint Chief Complaint: altered mental status, generalized weakness - Allergies Allergies/Adverse Reactions: Allergies Allergy/AdvReac Type Severity Reaction Status Date / Time No Known Drug Allergies Allergy Verified 11/22/17 13:51 - History of Present Illness History of Present Illness: is a 82 year old patient of ours who presented to the emergency room with complaints of generalized weakness, with family reporting that patient has had confusion, altered mental status, and that patient has not been sleeping at night. Patient is noted to have been recently hospitalized for the same complaints, but family reports that symptoms of confusion have only worsened. Associated symptoms include weakness, fatigue, loss of appetite, shortness of breath. On examination, heart is regular in rate and rhythm. Bilateral lungs are noted with rhonchi throughout. Patient is noted to be confused with a flat affected noted. Abdomen is round, soft, and non- tender with normal bowel sounds noted in all quadrants. There is normal range of motion noted to all extremities. On arrival to the emergency room, vital signs were 99.1, 104, 14, 96%RA, 176/84. Labs were obtained. Abnormal Lab values include the following: WBC 16.2, RBC 3.36, MCV 111.4, MCH 38.7, Sodium 125, Corrected Sodium 126, Chloride 90, Glucose 151. Urinalysis reports: Protein 2+, Glucose 2+, Ketones 3+, Occult Blood 3+, RB C0-3, WBC 0-3, Mucus Few. Chest xray obtained and reported: No change, no acute disease. Brain CT reported: No acute intracranial abnormality. Stable age appropriate atrophy and microangiopathic disease. Unchanged opacification of the left maxillary sinus, compatible with chronic sinusitis. EKG reported: Sinus tachycardia. Heart rate= 106. We admitted patient to the hospital for further evaluation and treatment of hyponatremia, altered mental status, and leukocytosis. She was started on normal saline at 125ml/hr. We plan to follow up with am labs and obtain a brain MRI in the morning. - Past Medical History Past Medical History: CHF, Hypertension - Past Surgical History Surgical History: Ortho Surgery - Family History Family Medical History: Diabetes Mellitus, [place], Hypertension - Social History Does patient currently use any type of tobacco product: No Have you used tobacco products in the last 12 months: No Type of Tobacco Use: None Does any household member use tobacco: No Alcohol Use: None Drug Use: None - Physical Exam Vital Signs: Temperature 98.8 F Pulse Rate [Left Brachial] 94 Pulse Rate 110 Respiratory Rate 20 Blood Pressure [Right Arm] 135/62 Blood Pressure [Left Arm] 134/61 Blood Pressure 185/105 O2 Sat by Pulse Oximetry 96
[2017-11-24] MEDS: NS 1000 ML 1,000 ML IV SCH ×5 (02:45→23:15)
[2017-11-24 06:09] LABS: BASOPHILS # (AUTO) 0.1 X10^3/uL (0.0-0.1); BASOPHILS % (AUTO) 1.1 % (0.2-1.0); EOSINOPHILS # (AUTO) 0.1 x10^3/uL (0.0-0.2); HEMATOCRIT 29.6 % (36.0-47.0); HEMOGLOBIN 10.3 g/dL (12.0-16.0); LYMPHOCYTES % (AUTO) 10.3 % (21.0-51.0); MEAN CORPUSCULAR HEMOGLOBIN 39.7 pg (27.0-34.0); MEAN CORPUSCULAR HGB CONC 34.9 g/dL (33.0-35.0); MEAN CORPUSCULAR VOLUME 113.7 fL (80.0-100.0); MEAN PLATELET VOLUME 7.9 fL (7.4-11.0); MONOCYTES # (AUTO) 0.5 x10^3/uL (0.3-0.8); MONOCYTES % (AUTO) 5.1 % (0.0-13.0); NEUTROPHILS # (AUTO) 8.2 x10^3/uL (2.2-4.8); NEUTROPHILS % (AUTO) 82.5 % (42.0-75.0); PLATELET COUNT 269 X10^3/uL (150.0-450.0); RED BLOOD COUNT 2.61 X10^6/uL (3.5-5.4); RED CELL DISTRIBUTION WIDTH 16.4 % (11.6-16.5); WHITE BLOOD COUNT 9.9 X10^3/uL (3.6-10.0)
[2017-11-24 06:21] LABS: ALANINE AMINOTRANSFERASE 13 Units/L (12-78); ALBUMIN 2.5 g/dL (3.4-5.0); ALKALINE PHOSPHATASE 43 Units/L (46-116); ASPARTATE AMINO TRANSFERASE 17 Units/L (15-37); BLOOD UREA NITROGEN 7 mg/dL (7-18); CALCIUM 7.7 mg/dL (8.5-10.1); CARBON DIOXIDE 25.1 mmol/L (21-32); COR CA(FOR HYPOALB) 8.9 mg/dL (8.5-10.1); CREATININE 0.47 mg/dL (0.55-1.02); eGFR BLACK RACES > 60 (>60); eGFR NON BLACK RACES > 60 (>60)
[2017-11-24 06:29] LABS: CHLORIDE 98 mmol/L (98-107); SODIUM 131 mmol/L (136-145)
[2017-11-24 06:53] LABS: PLATELET MORPHOLOGY COMMENT NORMAL (NORMAL)
[2017-11-24] MEDS ORDERED: ATIVAN INJ 2 MG VIAL IM ONE (07:46)
[2017-11-24] MEDS: ALTACE CAP 10 MG PO SCH ×2 (09:50→20:07)
[2017-11-24] MEDS: FOLIC ACID TAB 1 MG PO SCH (09:51)
[2017-11-24] MEDS: COREG TAB 6.25 MG PO SCH ×2 (09:51→20:07)
[2017-11-24] MEDS: EVISTA PO SCH (09:51)
[2017-11-24] MEDS: ECOTRIN TAB 325 MG PO SCH ×2 (09:51→20:07)
[2017-11-24] MEDS: HYDREA PO SCH ×2 (09:52→20:06)
[2017-11-24] MEDS: SYNTHROID 75 mcg TAB PO SCH (09:53)
[2017-11-24] MEDS: TAB-A-VITE PO SCH (09:53)
[2017-11-24] MEDS: ZyPREXA TAB 5 MG PO SCH ×2 (13:30→17:53)
[2017-11-24] MEDS: ZOCOR TAB 10 MG PO SCH (20:06)
--- NOTE | 2017-11-24 20:54 | PCM.PROG ---
Progress Note - Progress Note for Day of Date: 11/23/17 - Subjective Subjective: WAS ADMITTED FOR GENERALIZED WEAKNESS AND ALTERED MENTAL STATUS. ON ADMISSION, SHE WAS FOUND TO HAVE A SODIUM OF 125. TODAY, SHE IS SITTING UP IN BED ON MORNING ROUNDS. PATIENTS FAMILY IS AT BEDSIDE. SHE CONTINUES WITH CONFUSION AND GENERALIZED WEAKNESS. SHE DOES NOT FOLLOW SIMPLE COMMANDS. ON EXAMINATION, HEART IS REGULAR IN RATE AND RHYTHM. RHONCHI NOTED TO BILATERAL LUNGS. ABDOMEN IS ROUND, SOFT, AND NON-TENDER WITH NORMAL BOWEL SOUNDS NOTED IN ALL QUADRANTS. NORMAL RANGE OF MOTION NOTED TO ALL EXTREMITIES. HER VITAL SIGNS THIS MORNING ARE 99.0-97-20-97%-148/68. ABNORMAL LAB VALUES INCLUDE THE FOLLOWING: WBC 11.4, RBC 2.79, HGB 11.0, HCT 31.5, SODIUM 127, POTASSIUM 3.4, CHLORIDE 95, CALCIUM 7.9, MAGNESIUM 1.6, TOTAL PROTEIN 5.3, ALBUMIN 2.7. CARDIAC ENZYMES HAVE BEEN WITHIN NORMAL LIMITS. MOST RECENT EKG REPORTS NORMAL SINUS RHYTHM WITH HR 84. TODAY, WE PLAN TO OBTAIN A MRI OF THE BRAIN WITHOUT CONTRAST. OTHERWISE, WE WILL CONTINUE TO HYDRATED PATIENT. WE PLAN TO FOLLOW UP WITH AM LABS AND CONTINUE TO MONITOR PATIENT. - Past Medical Family Social History Past Med/Fam/Surg Hx: No changes since H&P Allergies: Allergies No Known Drug Allergies Allergy (Verified 11/22/17 13:51) - Review of Systems ROS: No change since H&P - Vital Signs and I&O's Vital Signs: Temperature 99.1 F Pulse Rate [Left Brachial] 95 Pulse Rate 110 Respiratory Rate 19 Blood Pressure [Right Arm] 154/63 Blood Pressure [Left Arm] 134/61 Blood Pressure 185/105 O2 Sat by Pulse Oximetry 96 Intake and Output: Intake & Output 11/22/17 11/23/17 11/24/17 11/25/17 11:59 11:59 11:59 11:59 Intake Total 2264 3538 1500 Output Total 750 1350 900 Balance 1514 2188 600 - Physical Exam Oriented: Person Eyes: Normal. negative: Blurred Vision, Diplopia, Discharge, Pain, Redness, Photophobia, Other Ear: Normal. negative: Right, Left, Swelling, Ecchymosis, Hemotypanum, Abrasion , Laceration Nose: Normal. negative: Injected, Discharge, Blood, Other Throat: Normal. negative: Tonsillar Hypertrophy, Red, Exudate, Dry, Other Respiratory: Right, Left, Generalized, Rhonchi Cardiovascular: Normal. negative: Tachycardia, Bradycardia, Irregular, S3, S4, Systolic, Diastolic, Murmur, Edema, Other : Normal. negative: Dysuria, Hematuria, Frequency, Discharge, Testicular Pain , Bleeding, , Other Auscultation: Bowel Sounds: Normal. negative: Bruit, Absent, Increased, Decreased, High Pitched, Other Palpation: Normal. negative: Spleen Enlarged, Liver Enlarged, Mass Pulsatile, Other Tenderness: Normal. negative: Diffuse, RUQ, RLQ, LUQ, LLQ, Epigastric, Periumbilical, Suprapubic, Mild, Moderate, Severe, Rebound, Guarding, Rigidity, Other Skin: Normal. negative: Decreased Turgur, Rash, Papular, Macular, Maculopapular , Vesicular, Pustular, Petechial, Red, Tender, Hot, Diaphoresis, Wound, Bruising , Ecchymosis, Other Musculoskeletal: Normal. negative: Right, Left, Shoulder, Clavicle, Arm, Elbow , Forearm, Wrist, Hand, Hip, Thigh, Knee, Leg, Ankle, Foot, Back:Thoracic, Back: Lumbar, Back:Midline, Back:Paraspinous, Pelvis, Swelling, Tender, Deformity, Pulse Deficit, Motor Deficit, Sensory Deficit, Instability, Crepitance Psychiatric: Normal. negative: Anxiety, Depression, Agitation, Other Mood Description: Calm. negative: Angry, Apathetic, Depressed, Fearful, Flat, Happy, Hostile, Sad, Suspicious, Withdrawn, Anxious, Appropriate, Labile Affect: Normal Speech Pattern: Clear, Appropriate - Laboratory and Diagnostics Result Diagrams: 11/24/17 05:10 11/24/17 05:10 Labs: Laboratory WBC 9.9 X10^3/uL (3.6-10.0) 11/24/17 05:10 RBC 2.61 X10^6/uL (3.5-5.4) L 11/24/17 05:10 Hgb 10.3 g/dL (12.0-16.0) L 11/24/17 05:10 Hct 29.6 % (36.0-47.0) L 11/24/17 05:10 MCV 113.7 fL (80.0-100.0) H 11/24/17 05:10 MCH 39.7 pg (27.0-34.0) H 11/24/17 05:10 MCHC 34.9 g/dL (33.0-35.0) 11/24/17 05:10 RDW 16.4 % (11.6-16.5) 11/24/17 05:10 Plt Count 269 X10^3/uL (150.0-450.0) 11/24/17 05:10 Plt Count Comment Adequate (ADEQUATE) 11/24/17 05:10 MPV 7.9 fL (7.4-11.0) 11/24/17 05:10 Neut % 82.5 % (42.0-75.0) H 11/24/17 05:10 Lymph % 10.3 % (21.0-51.0) L 11/24/17 05:10 [place] % 5.1 % (0.0-13.0) 11/24/17 05:10 Eos % 1.0 % (0.9-2.9) 11/24/17 05:10 Baso % 1.1 % (0.2-1.0) H 11/24/17 05:10 Neut # 8.2 x10^3/uL (2.2-4.8) H 11/24/17 05:10 Lymph # 1.0 X10^3/uL (1.3-2.9) L 11/24/17 05:10 [place] # 0.5 x10^3/uL (0.3-0.8) 11/24/17 05:10 Eos # 0.1 x10^3/uL (0.0-0.2) 11/24/17 05:10 Baso # 0.1 X10^3/uL (0.0-0.1) 11/24/17 05:10 Absolute Nucleated RBC 0.0 /100WBC 11/24/17 05:10 Total Counted 100 11/23/17 04:57 Neutrophils % (Manual) 79 % (39-76) H 11/23/17 04:57 Band Neutrophils % 2 % (0-10) 11/22/17 14:32 Lymphocytes % (Manual) 10 % (13-43) L 11/23/17 04:57 Monocytes % (Manual) 7 % (4-9) 11/23/17 04:57 Eosinophils % (Manual) 4 % (0-6) 11/23/17 04:57 Plt Morphology Comment Normal (NORMAL) 11/24/17 05:10 RBC Morphology Abnormal (NORMAL) A 11/24/17 05:10 Macrocytosis 2+ A 11/24/17 05:10 Sodium 131 mmol/L (136-145) L 11/24/17 05:10 Corrected Sodium TNP 11/24/17 05:10 Potassium 3.5 mmol/L (3.5-5.1) 11/24/17 05:10 Chloride 98 mmol/L (98-107) 11/24/17 05:10 Carbon Dioxide 25.1 mmol/L (21-32) 11/24/17 05:10 BUN 7 mg/dL (7-18) 11/24/17 05:10 Creatinine 0.47 mg/dL (0.55-1.02) L 11/24/17 05:10 Est GFR (MDRD) Af Amer > 60 (>60) 11/24/17 05:10 Est GFR (MDRD) Non-Af > 60 (>60) 11/24/17 05:10 Glucose 90 mg/dL (65-99) 11/24/17 05:10 Calcium 7.7 mg/dL (8.5-10.1) L 11/24/17 05:10 Corrected Calcium 8.9 mg/dL (8.5-10.1) 11/24/17 05:10 Magnesium 1.9 mg/dL (1.7-2.9) 11/24/17 05:10 Total Bilirubin 0.30 mg/dL (0.2-1.0) 11/24/17 05:10 AST 17 Units/L (15-37) 11/24/17 05:10 ALT 13 Units/L (12-78) 11/24/17 05:10 Alkaline Phosphatase 43 Units/L (46-116) L 11/24/17 05:10 Creatine Kinase 37 Units/L (26-192) 11/23/17 04:57 CK-MB (CK-2) 1.2 ng/mL (0-4.0) 11/23/17 04:57 CK/CKMB % Calc 3.2 % (<4) 11/23/17 04:57 Troponin I 0.02 ng/mL (0-1.5) 11/23/17 04:57 Total Protein 5.0 g/dL (6.4-8.2) L 11/24/17 05:10 Albumin 2.5 g/dL (3.4-5.0) L 11/24/17 05:10 Globulin 2.5 g/dL (2.5-4.5) 11/24/17 05:10 Albumin/Globulin Ratio 1.0 Ratio (1.1-2.1) L 11/24/17 05:10 Specimen Type Clean catch urine 11/22/17 20:13 Urine Color Yellow (YELLOW) 11/22/17 20:13 Urine Appearance Clear (CLEAR) 11/22/17 20:13 Urine pH 6.5 (5.0 - 8.0) 11/22/17 20:13 Ur Specific [place] 1.015 (1.000-1.030) 11/22/17 20:13 Urine Protein 2+ (NEGATIVE) 11/22/17 20:13 Urine Glucose (UA) 2+ (NEGATIVE) 11/22/17 20:13 Urine Ketones 3+ (NEGATIVE) 11/22/17 20:13 Urine Occult Blood 3+ (NEGATIVE) 11/22/17 20:13 Urine Nitrite Negative (NEGATIVE) 11/22/17 20:13 Urine Bilirubin Negative (NEGATIVE) 11/22/17 20:13 Urine Urobilinogen Normal (NORMAL) 11/22/17 20:13 Ur Leukocyte Esterase Negative (NEGATIVE) 11/22/17 20:13 Urine RBC 0-3 /HPF (NEGATIVE) 11/22/17 20:13 Urine WBC 0-3 /HPF (NEGATIVE) 11/22/17 20:13 Ur Squamous Epith Cells Few /HPF (NEGATIVE) 11/22/17 20:13 Urine Bacteria Negative /HPF (NEGATIVE) 11/22/17 20:13 Urine Mucus Few /HPF (NEGATIVE) 11/22/17 20:13 Ur Culture Indicated? No/not indicated 11/22/17 20:13
[2017-11-24] MEDS: HALDOL INJ IVP PRN (22:07)
--- NOTE | 2017-11-24 22:38 | RAD ---
HISTORY: 82-year-old female with severe shortness of breath and wheezing. Study: Frontal view of the chest. Comparison: Chest radiograph 11/22/2017 Findings: The trachea is midline. The cardiac silhouette is stably enlarged with moderate pulmonary edema. Th e lungs are clear without focal consolidation, effusion or pneumothorax. Soft tissues are unremarkabl e. Osseous structures are unremarkable. IMPRESSION: 1. Chronic cardiomegaly with interval development of moderate pulmonary edema. Correlate clinically for CHF exacerbation. Reported By:
[2017-11-24] MEDS ORDERED: LASIX IVP ONE (22:45)
[2017-11-24 23:18] LABS: BILIRUBIN,URINE NEGATIVE (NEGATIVE); BLOOD/HEMOGLOBIN,URINE 2+ (NEGATIVE); GLUCOSE, URINE NEGATIVE (NEGATIVE); KETONES,URINE NEGATIVE (NEGATIVE); LEUKOCYTE ESTERASE ,URINE NEGATIVE (NEGATIVE); NITRITES,URINE NEGATIVE (NEGATIVE); PROTEIN,URINE 2+ (NEGATIVE); UROBILINOGEN,URINE NORMAL (NORMAL)
[2017-11-24 23:32] LABS: APPEARANCE,URINE CLEAR (CLEAR); BACTERIA,URINE NEGATIVE /HPF (NEGATIVE); COLOR,URINE PALE YELLOW (YELLOW); RBC,URINE RARE /HPF (NEGATIVE); SQUAMOUS EPITHELIAL CELL,UR RARE /HPF (NEGATIVE)
[2017-11-25 06:01] LABS: BASOPHILS % (AUTO) 0.3 % (0.2-1.0); EOSINOPHILS % (AUTO) 0.3 % (0.9-2.9); HEMATOCRIT 29.4 % (36.0-47.0); HEMOGLOBIN 10.1 g/dL (12.0-16.0); LYMPHOCYTES # (AUTO) 0.6 X10^3/uL (1.3-2.9); LYMPHOCYTES % (AUTO) 5.3 % (21.0-51.0); MEAN CORPUSCULAR HEMOGLOBIN 38.9 pg (27.0-34.0); MEAN CORPUSCULAR HGB CONC 34.4 g/dL (33.0-35.0); MEAN CORPUSCULAR VOLUME 113.1 fL (80.0-100.0); MONOCYTES # (AUTO) 0.4 x10^3/uL (0.3-0.8); MONOCYTES % (AUTO) 3.7 % (0.0-13.0); NEUTROPHILS # (AUTO) 10.9 x10^3/uL (2.2-4.8); NEUTROPHILS % (AUTO) 90.4 % (42.0-75.0); PLATELET COUNT 317 X10^3/uL (150.0-450.0); RED CELL DISTRIBUTION WIDTH 16.3 % (11.6-16.5)
[2017-11-25 06:29] LABS: ALANINE AMINOTRANSFERASE 24 Units/L (12-78); ALBUMIN 2.5 g/dL (3.4-5.0); ALKALINE PHOSPHATASE 50 Units/L (46-116); ASPARTATE AMINO TRANSFERASE 16 Units/L (15-37); BLOOD UREA NITROGEN 7 mg/dL (7-18); CALCIUM 8.1 mg/dL (8.5-10.1); CARBON DIOXIDE 27.8 mmol/L (21-32); CHLORIDE 101 mmol/L (98-107); COR CA(FOR HYPOALB) 9.3 mg/dL (8.5-10.1); COR NA(FOR HYPERGLY) 136 mmol/L (136-145); PLATELET MORPHOLOGY COMMENT NORMAL (NORMAL); SODIUM 136 mmol/L (136-145); TOTAL PROTEIN 5.1 g/dL (6.4-8.2); eGFR BLACK RACES > 60 (>60); eGFR NON BLACK RACES > 60 (>60)
--- NOTE | 2017-11-25 06:36 | RAD ---
Chest, one view Indication: CHF Comparison: 11/24/2017 Findings: The heart size is normal. There are patchy opacities within the mid and lower right lung, u nchanged since prior exam. The remainder of the lungs are clear. No significant pleural effusion or p neumothorax is identified. No acute osseous abnormality is seen. Impression: Stable right mid and lower lung opacities, either representing edema or pneumonia. Clinical correlati on and follow-up to complete resolution recommended. Reported By:
[2017-11-25] MEDS: FOLIC ACID TAB 1 MG PO SCH (09:21)
[2017-11-25] MEDS: TAB-A-VITE PO SCH (09:21)
[2017-11-25] MEDS: ALTACE CAP 10 MG PO SCH ×2 (09:21→20:18)
[2017-11-25] MEDS: COREG TAB 6.25 MG PO SCH ×2 (09:21→20:18)
[2017-11-25] MEDS: MAG-OX TAB PO PRN (09:21)
[2017-11-25] MEDS: SYNTHROID 75 mcg TAB PO SCH (09:21)
[2017-11-25] MEDS: ECOTRIN TAB 325 MG PO SCH ×2 (09:22→20:18)
[2017-11-25] MEDS: EVISTA PO SCH (09:23)
[2017-11-25] MEDS: HYDREA PO SCH ×2 (09:24→20:19)
[2017-11-25] MEDS ORDERED: COLACE CAP 100 MG PO PRN (10:15)
[2017-11-25] MEDS ORDERED: MILK OF MAGNESIA PO PRN (10:15)
[2017-11-25] MEDS: ZyPREXA TAB 5 MG PO SCH (17:10)
[2017-11-25] MEDS: ZOCOR TAB 10 MG PO SCH (20:18)
[2017-11-25] MEDS: K-RIDER 10 MEQ/NS 100 ML 10 MEQ/100 ML BAG IV PRN ×2 (20:19→21:25)
[2017-11-25] MEDS: HALDOL INJ IVP PRN (20:30)
--- NOTE | 2017-11-25 21:43 | PCM.PROG ---
Progress Note - Progress Note for Day of Date: 11/24/17 - Subjective Subjective: WAS ADMITTED FOR GENERALIZED WEAKNESS AND ALTERED MENTAL STATUS. ON ADMISSION, SHE WAS FOUND TO HAVE A SODIUM OF 125. TODAY, SHE IS SITTING UP IN BED ON MORNING ROUNDS. SHE CONTINUES WITH CONFUSION AND GENERALIZED WEAKNESS. STAFF REPORTS THAT PATIENT HAS BEEN AGITATED THROUGHOUT THE MORNING. THEY STATE THAT PATIENT HAS BEEN CLIMBING OUT OF BED AND PULLING AT IV TUBING AND MEDICAL EQUIPMENT. SHE IS UNABLE TO FOLLOW SIMPLE COMMANDS. ON EXAMINATION, HEART IS REGULAR IN RATE AND RHYTHM. RHONCHI NOTED TO BILATERAL LUNGS. ABDOMEN IS ROUND, SOFT, AND NON-TENDER WITH NORMAL BOWEL SOUNDS NOTED IN ALL QUADRANTS. NORMAL RANGE OF MOTION NOTED TO ALL EXTREMITIES. HER VITAL SIGNS THIS MORNING ARE 99.1-104-27-96%-163/91. ABNORMAL LAB VALUES INCLUDE THE FOLLOWING: RBC 2.61, HGB 10.3, HCT 29.6, SODIUM 131, CREATININE 0.47, CALCIUM 7.7, ALKALINE PHOSPHATASE 43, TOTAL PROTEIN 5.0, ALBUMIN 2.5. A BRAIN MRI WAS OBTAINED YESTERDAY AND REPORTED UNREMARKABLE MRI OF THE BRAIN WITHOUT CONTRAST. TODAYS CHEST XRAY REPORTS CHRONIC CARDIOMEGALY WITH INTERVAL DEVELOPMENT OF MODERATE PULMONARY EDEMA. TODAY, WE WILL START HALDOL 1-2MG IV Q4H PRN AND ZYPREXA 5MG PO AT BEDTIME. OTHERWISE, WE WILL CONTINUE TO HYDRATE PATIENT. WE PLAN TO FOLLOW UP WITH AM LABS AND CONTINUE TO MONITOR PATIENT. - Past Medical Family Social History Past Med/Fam/Surg Hx: No changes since H&P Allergies: Allergies No Known Drug Allergies Allergy (Verified 11/22/17 13:51) - Review of Systems ROS: No change since H&P - Vital Signs and I&O's Vital Signs: Temperature 98.9 F Pulse Rate [Left Brachial] 93 Pulse Rate 110 Respiratory Rate 19 Blood Pressure [Right Arm] 146/63 Blood Pressure [Left Arm] 134/61 Blood Pressure 185/105 O2 Sat by Pulse Oximetry 99 Intake and Output: Intake & Output 11/23/17 11/24/17 11/25/17 11/26/17 11:59 11:59 11:59 11:59 Intake Total 2264 3538 3088 799 Output Total 750 1350 3000 250 Balance 1514 2188 88 549 - Physical Exam Oriented: Person Eyes: Normal. negative: Blurred Vision, Diplopia, Discharge, Pain, Redness, Photophobia, Other Ear: Normal. negative: Right, Left, Swelling, Ecchymosis, Hemotypanum, Abrasion , Laceration Nose: Normal. negative: Injected, Discharge, Blood, Other Throat: Normal. negative: Tonsillar Hypertrophy, Red, Exudate, Dry, Other Respiratory: Right, Left, Generalized, Rhonchi Cardiovascular: Normal. negative: Tachycardia, Bradycardia, Irregular, S3, S4, Systolic, Diastolic, Murmur, Edema, Other : Normal. negative: Dysuria, Hematuria, Frequency, Discharge, Testicular Pain , Bleeding, , Other Auscultation: Bowel Sounds: Normal. negative: Bruit, Absent, Increased, Decreased, High Pitched, Other Palpation: Normal Tenderness: Normal. negative: Diffuse, RUQ, RLQ, LUQ, LLQ, Epigastric, Periumbilical, Suprapubic, Mild, Moderate, Severe, Rebound, Guarding, Rigidity, Other Skin: Normal. negative: Decreased Turgur, Rash, Papular, Macular, Maculopapular , Vesicular, Pustular, Petechial, Red, Tender, Hot, Diaphoresis, Wound, Bruising , Ecchymosis, Other Musculoskeletal: Normal. negative: Right, Left, Shoulder, Clavicle, Arm, Elbow , Forearm, Wrist, Hand, Hip, Thigh, Knee, Leg, Ankle, Foot, Back:Thoracic, Back: Lumbar, Back:Midline, Back:Paraspinous, Pelvis, Swelling, Tender, Deformity, Pulse Deficit, Motor Deficit, Sensory Deficit, Instability, Crepitance Psychiatric: Agitation Mood Description: Anxious Affect: Anxious Speech Pattern: Clear, Inappropriate - Laboratory and Diagnostics Result Diagrams: 11/25/17 05:36 11/25/17 17:35 Labs: Laboratory WBC 12.0 X10^3/uL (3.6-10.0) H 11/25/17 05:36 RBC 2.60 X10^6/uL (3.5-5.4) L 11/25/17 05:36 Hgb 10.1 g/dL (12.0-16.0) L 11/25/17 05:36 Hct 29.4 % (36.0-47.0) L 11/25/17 05:36 MCV 113.1 fL (80.0-100.0) H 11/25/17 05:36 MCH 38.9 pg (27.0-34.0) H 11/25/17 05:36 MCHC 34.4 g/dL (33.0-35.0) 11/25/17 05:36 RDW 16.3 % (11.6-16.5) 11/25/17 05:36 Plt Count 317 X10^3/uL (150.0-450.0) 11/25/17 05:36 Plt Count Comment Adequate (ADEQUATE) 11/25/17 05:36 MPV 8.0 fL (7.4-11.0) 11/25/17 05:36 Neut % 90.4 % (42.0-75.0) H 11/25/17 05:36 Lymph % 5.3 % (21.0-51.0) L 11/25/17 05:36 [place] % 3.7 % (0.0-13.0) 11/25/17 05:36 Eos % 0.3 % (0.9-2.9) L 11/25/17 05:36 Baso % 0.3 % (0.2-1.0) 11/25/17 05:36 Neut # 10.9 x10^3/uL (2.2-4.8) H 11/25/17 05:36 Lymph # 0.6 X10^3/uL (1.3-2.9) L 11/25/17 05:36 [place] # 0.4 x10^3/uL (0.3-0.8) 11/25/17 05:36 Eos # 0.0 x10^3/uL (0.0-0.2) 11/25/17 05:36 Baso # 0.0 X10^3/uL (0.0-0.1) 11/25/17 05:36 Absolute Nucleated RBC 0.1 /100WBC 11/25/17 05:36 Total Counted 100 11/25/17 05:36 Neutrophils % (Manual) 88 % (39-76) H 11/25/17 05:36 Band Neutrophils % 2 % (0-10) 11/22/17 14:32 Lymphocytes % (Manual) 10 % (13-43) L 11/25/17 05:36 Monocytes % (Manual) 2 % (4-9) L 11/25/17 05:36 Eosinophils % (Manual) 4 % (0-6) 11/23/17 04:57 Plt Morphology Comment Normal (NORMAL) 11/25/17 05:36 RBC Morphology Abnormal (NORMAL) A 11/25/17 05:36 Macrocytosis 1+ A 11/25/17 05:36 Sodium 136 mmol/L (136-145) 11/25/17 05:36 Corrected Sodium 136 mmol/L (136-145) 11/25/17 05:36 Potassium 3.7 mmol/L (3.5-5.1) 11/25/17 17:35 Chloride 101 mmol/L (98-107) 11/25/17 05:36 Carbon Dioxide 27.8 mmol/L (21-32) 11/25/17 05:36 BUN 7 mg/dL (7-18) 11/25/17 05:36 Creatinine 0.70 mg/dL (0.55-1.02) 11/25/17 05:36 Est GFR (MDRD) Af Amer > 60 (>60) 11/25/17 05:36 Est GFR (MDRD) Non-Af > 60 (>60) 11/25/17 05:36 Glucose 113 mg/dL (65-99) H 11/25/17 05:36 Calcium 8.1 mg/dL (8.5-10.1) L 11/25/17 05:36 Corrected Calcium 9.3 mg/dL (8.5-10.1) 11/25/17 05:36 Magnesium 1.6 mg/dL (1.7-2.9) L 11/25/17 05:36 Total Bilirubin 0.40 mg/dL (0.2-1.0) 11/25/17 05:36 AST 16 Units/L (15-37) 11/25/17 05:36 ALT 24 Units/L (12-78) 11/25/17 05:36 Alkaline Phosphatase 50 Units/L (46-116) 11/25/17 05:36 Creatine Kinase 37 Units/L (26-192) 11/23/17 04:57 CK-MB (CK-2) 1.2 ng/mL (0-4.0) 11/23/17 04:57 CK/CKMB % Calc 3.2 % (<4) 11/23/17 04:57 Troponin I 0.02 ng/mL (0-1.5) 11/23/17 04:57 Total Protein 5.1 g/dL (6.4-8.2) L 11/25/17 05:36 Albumin 2.5 g/dL (3.4-5.0) L 11/25/17 05:36 Globulin 2.6 g/dL (2.5-4.5) 11/25/17 05:36 Albumin/Globulin Ratio 1.0 Ratio (1.1-2.1) L 11/25/17 05:36 Specimen Type Catherized urine 11/24/17 23:02 Urine Color Pale yellow (YELLOW) 11/24/17 23:02 Urine Appearance Clear (CLEAR) 11/24/17 23:02 Urine pH 6.0 (5.0 - 8.0) 11/24/17 23:02 Ur Specific [place] 1.015 (1.000-1.030) 11/24/17 23:02 Urine Protein 2+ (NEGATIVE) 11/24/17 23:02 Urine Glucose (UA) Negative (NEGATIVE) 11/24/17 23:02 Urine Ketones Negative (NEGATIVE) 11/24/17 23:02 Urine Occult Blood 2+ (NEGATIVE) 11/24/17 23:02 Urine Nitrite Negative (NEGATIVE) 11/24/17 23:02 Urine Bilirubin Negative (NEGATIVE) 11/24/17 23:02 Urine Urobilinogen Normal (NORMAL) 11/24/17 23:02 Ur Leukocyte Esterase Negative (NEGATIVE) 11/24/17 23:02 Urine RBC Rare /HPF (NEGATIVE) 11/24/17 23:02 Urine WBC None seen /HPF (NEGATIVE) 11/24/17 23:02 Ur Squamous Epith Cells Rare /HPF (NEGATIVE) 11/24/17 23:02 Urine Bacteria Negative /HPF (NEGATIVE) 11/24/17 23:02 Urine Mucus Few /HPF (NEGATIVE) 11/22/17 20:13 Ur Culture Indicated? No/not indicated 11/24/17 23:02 - Plan (1) Hyponatremia Status: Acute (2) Mental status alteration Status: Acute Qualifiers: Altered mental status type: transient alteration of awareness Qualified Code(s): R40.4 - Transient alteration of awareness
[2017-11-26] MEDS: NS 1000 ML 1,000 ML IV SCH ×3 (04:22→23:19)
[2017-11-26 06:23] LABS: BASOPHILS # (AUTO) 0.1 X10^3/uL (0.0-0.1); BASOPHILS % (AUTO) 0.7 % (0.2-1.0); EOSINOPHILS # (AUTO) 0.1 x10^3/uL (0.0-0.2); EOSINOPHILS % (AUTO) 0.6 % (0.9-2.9); HEMOGLOBIN 9.4 g/dL (12.0-16.0); LYMPHOCYTES # (AUTO) 0.9 X10^3/uL (1.3-2.9); LYMPHOCYTES % (AUTO) 8.4 % (21.0-51.0); MEAN CORPUSCULAR HEMOGLOBIN 39.4 pg (27.0-34.0); MEAN CORPUSCULAR VOLUME 112.7 fL (80.0-100.0); MEAN PLATELET VOLUME 8.5 fL (7.4-11.0); MONOCYTES # (AUTO) 0.5 x10^3/uL (0.3-0.8); MONOCYTES % (AUTO) 4.7 % (0.0-13.0); NEUTROPHILS % (AUTO) 85.6 % (42.0-75.0); PLATELET COUNT 282 X10^3/uL (150.0-450.0); RED BLOOD COUNT 2.39 X10^6/uL (3.5-5.4); RED CELL DISTRIBUTION WIDTH 16.1 % (11.6-16.5); WHITE BLOOD COUNT 10.6 X10^3/uL (3.6-10.0)
[2017-11-26 06:37] LABS: ALANINE AMINOTRANSFERASE 17 Units/L (12-78); ALBUMIN 2.2 g/dL (3.4-5.0); ALKALINE PHOSPHATASE 46 Units/L (46-116); ASPARTATE AMINO TRANSFERASE 16 Units/L (15-37); BLOOD UREA NITROGEN 8 mg/dL (7-18); CALCIUM 7.8 mg/dL (8.5-10.1); CARBON DIOXIDE 28.2 mmol/L (21-32); CHLORIDE 102 mmol/L (98-107); COR CA(FOR HYPOALB) 9.2 mg/dL (8.5-10.1); MAGNESIUM 1.7 mg/dL (1.7-2.9); SODIUM 136 mmol/L (136-145); TOTAL PROTEIN 4.6 g/dL (6.4-8.2); eGFR BLACK RACES > 60 (>60); eGFR NON BLACK RACES > 60 (>60)
[2017-11-26 07:12] LABS: PLATELET MORPHOLOGY COMMENT NORMAL (NORMAL)
--- NOTE | 2017-11-26 08:09 | RAD ---
Examination: Portable AP chest History: SOB Comparison reference 11/25/2017 Findings: Stable cardiac size and contour. Persistent bibasal densities consistent with edema/infiltr ates. This process has increased slightly in the left lower lung. There is no evidence for hilar enla rgement, or pneumothorax. Impression: Slight interval increase in left lower lung infiltrate, no change otherwise. The Reported By:
[2017-11-26] MEDS: K-RIDER 10 MEQ/NS 100 ML 10 MEQ/100 ML BAG IV PRN ×2 (08:47→09:51)
[2017-11-26] MEDS: SYNTHROID 75 mcg TAB PO SCH (08:57)
[2017-11-26] MEDS: ECOTRIN TAB 325 MG PO SCH ×2 (08:57→20:57)
[2017-11-26] MEDS: HYDREA PO SCH ×2 (08:57→20:57)
[2017-11-26] MEDS: COREG TAB 6.25 MG PO SCH ×2 (08:57→20:57)
[2017-11-26] MEDS: TAB-A-VITE PO SCH (08:57)
[2017-11-26] MEDS: FOLIC ACID TAB 1 MG PO SCH (08:57)
[2017-11-26] MEDS: EVISTA PO SCH (08:57)
[2017-11-26] MEDS: ALTACE CAP 10 MG PO SCH ×2 (08:58→20:57)
[2017-11-26] MEDS: MAG-OX TAB PO PRN (08:58)
[2017-11-26] MEDS: PROCALAMINE 3 % 1,000 ML IV SCH (09:59)
[2017-11-26] MEDS: MEGACE PO SCH ×2 (10:47→20:57)
[2017-11-26] MEDS: HEMOCYTE-PLUS PO SCH (10:47)
[2017-11-26] MEDS: ALBUMIN HUMAN 25%- 100ML 100 ML IV SCH (10:48)
[2017-11-26] MEDS ORDERED: PHARMACY CONSULT - TPN XX SCH (11:00)
[2017-11-26] MEDS: ZyPREXA TAB 5 MG PO SCH (17:11)
[2017-11-26] MEDS ORDERED: LASIX ONE (17:39)
[2017-11-26] MEDS ORDERED: LASIX IVP ONE (17:43)
[2017-11-26] MEDS: HALDOL INJ IVP PRN (20:56)
[2017-11-26] MEDS: ZOCOR TAB 10 MG PO SCH (20:57)
--- NOTE | 2017-11-26 21:40 | PCM.PROG ---
Progress Note - Progress Note for Day of Date: 11/25/17 - Subjective Subjective: WAS ADMITTED FOR GENERALIZED WEAKNESS AND ALTERED MENTAL STATUS. ON ADMISSION, SHE WAS FOUND TO HAVE A SODIUM OF 125. TODAY, SHE IS SITTING UP IN BED ON MORNING ROUNDS. SHE CONTINUES WITH CONFUSION AND GENERALIZED WEAKNESS. PATIENT IS ALSO NOTED WITH SHORNTESS OF BREATH THIS MORNING. THROUGHOUT THE NIGHT, PATIENT BEGAN WHEEZING AND COMPLAINING OF DIFFICULTY BREATHING. CHEST XRAY WAS OBTAINED AND REPORTED MODERATE PULMONARY EDEMA. SHE WAS GIVEN LASIX IV AND IV FLUIDS WERE DECREASED. ON EXAMINATION TODAY, HEART IS REGULAR IN RATE AND RHYTHM. RHONCHI AND WHEEZING CONTINUES TO BILATERAL LUNGS. SHE IS CURRENTLY WEARING SUPPLEMENTAL OXYGEN VIA NASAL CANNULA AT 2L/MIN. ABDOMEN IS ROUND, SOFT, AND NON-TENDER WITH NORMAL BOWEL SOUNDS NOTED IN ALL QUADRANTS. NORMAL RANGE OF MOTION NOTED TO ALL EXTREMITIES. HER VITAL SIGNS THIS MORNING ARE 97.7-75-18-99%-92/47. WBC HAS INCREASED TO 12.0 TODAY COMPARED TO 9.9 THE PREVIOUS DAY. TOTAL PROTEIN AND ALBUMIN CONTINUE TO BE LOW. CHEST XRAY WAS OBTAINED TODAY AND REPORTED STALE RIGHT MID AND LOWER LUNG OPACITIES, EITHER REPRESENTING EDEMA OR PNEUMONIA. PATIENT DOES HAVE A HISTORY OF CONGESTIVE HEART FAILURE. TODAY, WE WILL CONTINUE WITH CURRENT PLAN OF CARE. WE PLAN TO FOLLOW UP WITH AM LABS AND CHEST XRAY AND CONTINUE TO MONITOR PATIENT. - Past Medical Family Social History Past Med/Fam/Surg Hx: No changes since H&P Allergies: Allergies No Known Drug Allergies Allergy (Verified 11/22/17 13:51) - Review of Systems ROS: No change since H&P - Vital Signs and I&O's Vital Signs: Temperature 98.7 F Pulse Rate [Left Brachial] 123 Pulse Rate 110 Respiratory Rate 28 Blood Pressure [Right Arm] 172/86 Blood Pressure [Left Arm] 134/61 Blood Pressure 185/105 O2 Sat by Pulse Oximetry 98 Intake and Output: Intake & Output 11/24/17 11/25/17 11/26/17 11/27/17 11:59 11:59 11:59 11:59 Intake Total 3538 3088 1668 800 Output Total 1350 3000 1500 400 Balance 2188 88 168 400 - Physical Exam Oriented: Person Eyes: Normal. negative: Blurred Vision, Diplopia, Discharge, Pain, Redness, Photophobia, Other Ear: Normal. negative: Right, Left, Swelling, Ecchymosis, Hemotypanum, Abrasion , Laceration Nose: Normal. negative: Injected, Discharge, Blood, Other Throat: Normal. negative: Tonsillar Hypertrophy, Red, Exudate, Dry, Other Respiratory: Right, Left, Generalized, Wheezes, Rhonchi Cardiovascular: Normal. negative: Tachycardia, Bradycardia, Irregular, S3, S4, Systolic, Diastolic, Murmur, Edema, Other : Normal. negative: Dysuria, Hematuria, Frequency, Discharge, Testicular Pain , Bleeding, , Other Auscultation: Bowel Sounds: Normal. negative: Bruit, Absent, Increased, Decreased, High Pitched, Other Palpation: Normal Tenderness: Normal. negative: Diffuse, RUQ, RLQ, LUQ, LLQ, Epigastric, Periumbilical, Suprapubic, Mild, Moderate, Severe, Rebound, Guarding, Rigidity, Other Skin: Normal. negative: Decreased Turgur, Rash, Papular, Macular, Maculopapular , Vesicular, Pustular, Petechial, Red, Tender, Hot, Diaphoresis, Wound, Bruising , Ecchymosis, Other Musculoskeletal: Normal. negative: Right, Left, Shoulder, Clavicle, Arm, Elbow , Forearm, Wrist, Hand, Hip, Thigh, Knee, Leg, Ankle, Foot, Back:Thoracic, Back: Lumbar, Back:Midline, Back:Paraspinous, Pelvis, Swelling, Tender, Deformity, Pulse Deficit, Motor Deficit, Sensory Deficit, Instability, Crepitance Psychiatric: Agitation Mood Description: Anxious Affect: Anxious Speech Pattern: Clear, Appropriate - Laboratory and Diagnostics Result Diagrams: 11/26/17 05:18 11/26/17 05:18 Labs: Laboratory WBC 10.6 X10^3/uL (3.6-10.0) H 11/26/17 05:18 RBC 2.39 X10^6/uL (3.5-5.4) L 11/26/17 05:18 Hgb 9.4 g/dL (12.0-16.0) L 11/26/17 05:18 Hct 27.0 % (36.0-47.0) L 11/26/17 05:18 MCV 112.7 fL (80.0-100.0) H 11/26/17 05:18 MCH 39.4 pg (27.0-34.0) H 11/26/17 05:18 MCHC 35.0 g/dL (33.0-35.0) 11/26/17 05:18 RDW 16.1 % (11.6-16.5) 11/26/17 05:18 Plt Count 282 X10^3/uL (150.0-450.0) 11/26/17 05:18 Plt Count Comment Adequate (ADEQUATE) 11/26/17 05:18 MPV 8.5 fL (7.4-11.0) 11/26/17 05:18 Neut % 85.6 % (42.0-75.0) H 11/26/17 05:18 Lymph % 8.4 % (21.0-51.0) L 11/26/17 05:18 [place] % 4.7 % (0.0-13.0) 11/26/17 05:18 Eos % 0.6 % (0.9-2.9) L 11/26/17 05:18 Baso % 0.7 % (0.2-1.0) 11/26/17 05:18 Neut # 9.0 x10^3/uL (2.2-4.8) H 11/26/17 05:18 Lymph # 0.9 X10^3/uL (1.3-2.9) L 11/26/17 05:18 [place] # 0.5 x10^3/uL (0.3-0.8) 11/26/17 05:18 Eos # 0.1 x10^3/uL (0.0-0.2) 11/26/17 05:18 Baso # 0.1 X10^3/uL (0.0-0.1) 11/26/17 05:18 Absolute Nucleated RBC 0.2 /100WBC 11/26/17 05:18 Total Counted 100 11/25/17 05:36 Neutrophils % (Manual) 88 % (39-76) H 11/25/17 05:36 Band Neutrophils % 2 % (0-10) 11/22/17 14:32 Lymphocytes % (Manual) 10 % (13-43) L 11/25/17 05:36 Monocytes % (Manual) 2 % (4-9) L 11/25/17 05:36 Eosinophils % (Manual) 4 % (0-6) 11/23/17 04:57 Plt Morphology Comment Normal (NORMAL) 11/26/17 05:18 RBC Morphology Normal (NORMAL) 11/26/17 05:18 Macrocytosis 1+ A 11/25/17 05:36 Sodium 136 mmol/L (136-145) 11/26/17 05:18 Corrected Sodium TNP 11/26/17 05:18 Potassium 3.5 mmol/L (3.5-5.1) 11/26/17 05:18 Chloride 102 mmol/L (98-107) 11/26/17 05:18 Carbon Dioxide 28.2 mmol/L (21-32) 11/26/17 05:18 BUN 8 mg/dL (7-18) 11/26/17 05:18 Creatinine 0.60 mg/dL (0.55-1.02) 11/26/17 05:18 Est GFR (MDRD) Af Amer > 60 (>60) 11/26/17 05:18 Est GFR (MDRD) Non-Af > 60 (>60) 11/26/17 05:18 Glucose 92 mg/dL (65-99) 11/26/17 05:18 Calcium 7.8 mg/dL (8.5-10.1) L 11/26/17 05:18 Corrected Calcium 9.2 mg/dL (8.5-10.1) 11/26/17 05:18 Magnesium 1.7 mg/dL (1.7-2.9) 11/26/17 05:18 Total Bilirubin 0.50 mg/dL (0.2-1.0) 11/26/17 05:18 AST 16 Units/L (15-37) 11/26/17 05:18 ALT 17 Units/L (12-78) 11/26/17 05:18 Alkaline Phosphatase 46 Units/L (46-116) 11/26/17 05:18 Creatine Kinase 37 Units/L (26-192) 11/23/17 04:57 CK-MB (CK-2) 1.2 ng/mL (0-4.0) 11/23/17 04:57 CK/CKMB % Calc 3.2 % (<4) 11/23/17 04:57 Troponin I 0.02 ng/mL (0-1.5) 11/23/17 04:57 Total Protein 4.6 g/dL (6.4-8.2) L 11/26/17 05:18 Albumin 2.2 g/dL (3.4-5.0) L 11/26/17 05:18 Globulin 2.4 g/dL (2.5-4.5) L 11/26/17 05:18 Albumin/Globulin Ratio 0.9 Ratio (1.1-2.1) L 11/26/17 05:18 Specimen Type Catherized urine 11/24/17 23:02 Urine Color Pale yellow (YELLOW) 11/24/17 23:02 Urine Appearance Clear (CLEAR) 11/24/17 23:02 Urine pH 6.0 (5.0 - 8.0) 11/24/17 23:02 Ur Specific [place] 1.015 (1.000-1.030) 11/24/17 23:02 Urine Protein 2+ (NEGATIVE) 11/24/17 23:02 Urine Glucose (UA) Negative (NEGATIVE) 11/24/17 23:02 Urine Ketones Negative (NEGATIVE) 11/24/17 23:02 Urine Occult Blood 2+ (NEGATIVE) 11/24/17 23:02 Urine Nitrite Negative (NEGATIVE) 11/24/17 23:02 Urine Bilirubin Negative (NEGATIVE) 11/24/17 23:02 Urine Urobilinogen Normal (NORMAL) 11/24/17 23:02 Ur Leukocyte Esterase Negative (NEGATIVE) 11/24/17 23:02 Urine RBC Rare /HPF (NEGATIVE) 11/24/17 23:02 Urine WBC None seen /HPF (NEGATIVE) 11/24/17 23:02 Ur Squamous Epith Cells Rare /HPF (NEGATIVE) 11/24/17 23:02 Urine Bacteria Negative /HPF (NEGATIVE) 11/24/17 23:02 Urine Mucus Few /HPF (NEGATIVE) 11/22/17 20:13 Ur Culture Indicated? No/not indicated 11/24/17 23:02 - Plan (1) Hyponatremia Status: Resolved Plan: CONTINUE TO MONITOR (2) Mental status alteration Status: Acute Qualifiers: Altered mental status type: transient alteration of awareness Qualified Code(s): R40.4 - Transient alteration of awareness Plan: CONTINUE ZYPREXA 5MG HS, CONTINUE HALDOL IV, CONTINUE TO MONITOR (3) Pulmonary edema Status: Acute Qualifiers: Chronicity: acute Qualified Code(s): J81.0 - Acute pulmonary edema Plan: CONTINUE TO MONITOR LABS AND CHEST XRAY
--- NOTE | 2017-11-26 21:49 | PCM.PROG ---
Progress Note - Progress Note for Day of Date: 11/26/17 - Subjective Subjective: WAS ADMITTED FOR GENERALIZED WEAKNESS AND ALTERED MENTAL STATUS. HER SODIUM HAS CORRECTED SINCE ADMISSION. TODAY, SHE IS LYING IN BED WITH EYES CLOSED. SHE AWAKENS BRIEFLY AND FALLS BACK TO SLEEP. FAMILY REPORTS THAT PATIENT HAS CONTINUED WITH WEAKNESS AND CONFUSION THROUGHOUT THE NIGHT. ON EXAMINATION TODAY, HEART IS REGULAR IN RATE AND RHYTHM. RHONCHI AND WHEEZING CONTINUES TO BILATERAL LUNGS. SHE IS CURRENTLY WEARING SUPPLEMENTAL OXYGEN VIA NASAL CANNULA AT 2L/MIN. ABDOMEN IS ROUND, SOFT, AND NON-TENDER WITH NORMAL BOWEL SOUNDS NOTED IN ALL QUADRANTS. NORMAL RANGE OF MOTION NOTED TO ALL EXTREMITIES. HER VITAL SIGNS THIS MORNING ARE 98.1-67-12-99%-115/53. SHE REMAINS HEMODYNAMICALLY STABLE TODAY. SHE IS SLIGHTLY ANEMIC. PROTEIN CONTINUES TO BE LOW. CHEST XRAY WAS OBTAINED TODAY AND REPORTS SLIGHT INTERAL INCREASE IN LEFT LOWER LUNG EDEMA/INFILTRATE. TODAY, WE PLAN TO DECREASE ZYPREXA TO 2.5MG PO HS DUE TO INCREASED DROWSINESS. WE WILL START PERIPHERAL TPN AND ALBUMIN IV DAILY TODAY. WE WILL ALSO START MEGACE 40MG PO BID AND HEMOCYTE PLUS DAILY. PATIENT COULD BENEFIT FROM A FEW DAYS OF TPN AND PHYSICAL THERAPY. WE PLAN TO CONSULT PHYSICAL THERAPY WHEN PATIENT IS MORE ALERT. OTHERWISE, WE WILL FOLLOW UP WITH AM LABS AND CHEST XRAY AND CONTINUE TO MONITOR. - Past Medical Family Social History Past Med/Fam/Surg Hx: No changes since H&P Allergies: Allergies No Known Drug Allergies Allergy (Verified 11/22/17 13:51) - Review of Systems ROS: No change since H&P - Vital Signs and I&O's Vital Signs: Temperature 98.7 F Pulse Rate [Left Brachial] 123 Pulse Rate 110 Respiratory Rate 28 Blood Pressure [Right Arm] 172/86 Blood Pressure [Left Arm] 134/61 Blood Pressure 185/105 O2 Sat by Pulse Oximetry 98 Intake and Output: Intake & Output 11/24/17 11/25/17 11/26/17 11/27/17 11:59 11:59 11:59 11:59 Intake Total 3538 3088 1668 800 Output Total 1350 3000 1500 400 Balance 2188 88 168 400 - Physical Exam Oriented: Person Eyes: Normal. negative: Blurred Vision, Diplopia, Discharge, Pain, Redness, Photophobia, Other Ear: Normal. negative: Right, Left, Swelling, Ecchymosis, Hemotypanum, Abrasion , Laceration Nose: Normal. negative: Injected, Discharge, Blood, Other Throat: Normal. negative: Tonsillar Hypertrophy, Red, Exudate, Dry, Other Respiratory: Right, Left, Generalized, Wheezes, Rhonchi Cardiovascular: Normal. negative: Tachycardia, Bradycardia, Irregular, S3, S4, Systolic, Diastolic, Murmur, Edema, Other : Normal. negative: Dysuria, Hematuria, Frequency, Discharge, Testicular Pain , Bleeding, , Other Auscultation: Bowel Sounds: Normal. negative: Bruit, Absent, Increased, Decreased, High Pitched, Other Palpation: Normal Tenderness: Normal. negative: Diffuse, RUQ, RLQ, LUQ, LLQ, Epigastric, Periumbilical, Suprapubic, Mild, Moderate, Severe, Rebound, Guarding, Rigidity, Other Skin: Normal. negative: Decreased Turgur, Rash, Papular, Macular, Maculopapular , Vesicular, Pustular, Petechial, Red, Tender, Hot, Diaphoresis, Wound, Bruising , Ecchymosis, Other Musculoskeletal: Normal. negative: Right, Left, Shoulder, Clavicle, Arm, Elbow , Forearm, Wrist, Hand, Hip, Thigh, Knee, Leg, Ankle, Foot, Back:Thoracic, Back: Lumbar, Back:Midline, Back:Paraspinous, Pelvis, Swelling, Tender, Deformity, Pulse Deficit, Motor Deficit, Sensory Deficit, Instability, Crepitance Psychiatric: Normal Mood Description: Calm Affect: Normal - Laboratory and Diagnostics Result Diagrams: 12/01/17 05:00 12/01/17 05:00 Labs: Laboratory WBC 10.6 X10^3/uL (3.6-10.0) H 11/26/17 05:18 RBC 2.39 X10^6/uL (3.5-5.4) L 11/26/17 05:18 Hgb 9.4 g/dL (12.0-16.0) L 11/26/17 05:18 Hct 27.0 % (36.0-47.0) L 11/26/17 05:18 MCV 112.7 fL (80.0-100.0) H 11/26/17 05:18 MCH 39.4 pg (27.0-34.0) H 11/26/17 05:18 MCHC 35.0 g/dL (33.0-35.0) 11/26/17 05:18 RDW 16.1 % (11.6-16.5) 11/26/17 05:18 Plt Count 282 X10^3/uL (150.0-450.0) 11/26/17 05:18 Plt Count Comment Adequate (ADEQUATE) 11/26/17 05:18 MPV 8.5 fL (7.4-11.0) 11/26/17 05:18 Neut % 85.6 % (42.0-75.0) H 11/26/17 05:18 Lymph % 8.4 % (21.0-51.0) L 11/26/17 05:18 [place] % 4.7 % (0.0-13.0) 11/26/17 05:18 Eos % 0.6 % (0.9-2.9) L 11/26/17 05:18 Baso % 0.7 % (0.2-1.0) 11/26/17 05:18 Neut # 9.0 x10^3/uL (2.2-4.8) H 11/26/17 05:18 Lymph # 0.9 X10^3/uL (1.3-2.9) L 11/26/17 05:18 [place] # 0.5 x10^3/uL (0.3-0.8) 11/26/17 05:18 Eos # 0.1 x10^3/uL (0.0-0.2) 11/26/17 05:18 Baso # 0.1 X10^3/uL (0.0-0.1) 11/26/17 05:18 Absolute Nucleated RBC 0.2 /100WBC 11/26/17 05:18 Total Counted 100 11/25/17 05:36 Neutrophils % (Manual) 88 % (39-76) H 11/25/17 05:36 Band Neutrophils % 2 % (0-10) 11/22/17 14:32 Lymphocytes % (Manual) 10 % (13-43) L 11/25/17 05:36 Monocytes % (Manual) 2 % (4-9) L 11/25/17 05:36 Eosinophils % (Manual) 4 % (0-6) 11/23/17 04:57 Plt Morphology Comment Normal (NORMAL) 11/26/17 05:18 RBC Morphology Normal (NORMAL) 11/26/17 05:18 Macrocytosis 1+ A 11/25/17 05:36 Sodium 136 mmol/L (136-145) 11/26/17 05:18 Corrected Sodium TNP 11/26/17 05:18 Potassium 3.5 mmol/L (3.5-5.1) 11/26/17 05:18 Chloride 102 mmol/L (98-107) 11/26/17 05:18 Carbon Dioxide 28.2 mmol/L (21-32) 11/26/17 05:18 BUN 8 mg/dL (7-18) 11/26/17 05:18 Creatinine 0.60 mg/dL (0.55-1.02) 11/26/17 05:18 Est GFR (MDRD) Af Amer > 60 (>60) 11/26/17 05:18 Est GFR (MDRD) Non-Af > 60 (>60) 11/26/17 05:18 Glucose 92 mg/dL (65-99) 11/26/17 05:18 Calcium 7.8 mg/dL (8.5-10.1) L 11/26/17 05:18 Corrected Calcium 9.2 mg/dL (8.5-10.1) 11/26/17 05:18 Magnesium 1.7 mg/dL (1.7-2.9) 11/26/17 05:18 Total Bilirubin 0.50 mg/dL (0.2-1.0) 11/26/17 05:18 AST 16 Units/L (15-37) 11/26/17 05:18 ALT 17 Units/L (12-78) 11/26/17 05:18 Alkaline Phosphatase 46 Units/L (46-116) 11/26/17 05:18 Creatine Kinase 37 Units/L (26-192) 11/23/17 04:57 CK-MB (CK-2) 1.2 ng/mL (0-4.0) 11/23/17 04:57 CK/CKMB % Calc 3.2 % (<4) 11/23/17 04:57 Troponin I 0.02 ng/mL (0-1.5) 11/23/17 04:57 Total Protein 4.6 g/dL (6.4-8.2) L 11/26/17 05:18 Albumin 2.2 g/dL (3.4-5.0) L 11/26/17 05:18 Globulin 2.4 g/dL (2.5-4.5) L 11/26/17 05:18 Albumin/Globulin Ratio 0.9 Ratio (1.1-2.1) L 11/26/17 05:18 Specimen Type Catherized urine 11/24/17 23:02 Urine Color Pale yellow (YELLOW) 11/24/17 23:02 Urine Appearance Clear (CLEAR) 11/24/17 23:02 Urine pH 6.0 (5.0 - 8.0) 11/24/17 23:02 Ur Specific [place] 1.015 (1.000-1.030) 11/24/17 23:02 Urine Protein 2+ (NEGATIVE) 11/24/17 23:02 Urine Glucose (UA) Negative (NEGATIVE) 11/24/17 23:02 Urine Ketones Negative (NEGATIVE) 11/24/17 23:02 Urine Occult Blood 2+ (NEGATIVE) 11/24/17 23:02 Urine Nitrite Negative (NEGATIVE) 11/24/17 23:02 Urine Bilirubin Negative (NEGATIVE) 11/24/17 23:02 Urine Urobilinogen Normal (NORMAL) 11/24/17 23:02 Ur Leukocyte Esterase Negative (NEGATIVE) 11/24/17 23:02 Urine RBC Rare /HPF (NEGATIVE) 11/24/17 23:02 Urine WBC None seen /HPF (NEGATIVE) 11/24/17 23:02 Ur Squamous Epith Cells Rare /HPF (NEGATIVE) 11/24/17 23:02 Urine Bacteria Negative /HPF (NEGATIVE) 11/24/17 23:02 Urine Mucus Few /HPF (NEGATIVE) 11/22/17 20:13 Ur Culture Indicated? No/not indicated 11/24/17 23:02 - Plan (1) Hyponatremia Status: Resolved Plan: CONTINUE TO MONITOR (2) Mental status alteration Status: Acute Qualifiers: Altered mental status type: transient alteration of awareness Qualified Code(s): R40.4 - Transient alteration of awareness Plan: CONTINUE ZYPREXA 2.5MG HS, CONTINUE HALDOL IV, CONTINUE TO MONITOR (3) Pulmonary edema Status: Acute Qualifiers: Chronicity: acute Qualified Code(s): J81.0 - Acute pulmonary edema Plan: CONTINUE TO MONITOR LABS AND CHEST XRAY (4) Hypoalbuminemia due to protein-calorie malnutrition Status: Acute Plan: ALBUMIN 25% IV DAILY, TPN, MEGACE 40MG PO BID, CONTINUE TO MONITOR (5) Hypoproteinemia Status: Acute Plan: ALBUMIN 25% IV DAILY, TPN, MEGACE 40MG PO BID, CONTINUE TO MONITOR
[2017-11-26] MEDS: ROCEPHIN VIAL 1 GM 1 GM in NS 100 ML IV + SPIKE MINIBAG* 100 ML IV SCH (23:30)
--- NOTE | 2017-11-27 06:20 | RAD ---
Examination: Portable AP chest History: SOB Comparison reference 11/26/2017 Findings:The stable cardiac size and contour with no change in the retrocardiac airspace process. Mil d central vascular congestion is unchanged. There is no evidence for large pleural effusion or develo ping pneumothorax. Impression: No radiographic change in appearance of the chest since 1 day earlier. Reported By:
[2017-11-27 06:22] LABS: BASOPHILS % (AUTO) 0.2 % (0.2-1.0); EOSINOPHILS % (AUTO) 0.2 % (0.9-2.9); HEMATOCRIT 29.6 % (36.0-47.0); HEMOGLOBIN 10.2 g/dL (12.0-16.0); LYMPHOCYTES # (AUTO) 0.9 X10^3/uL (1.3-2.9); LYMPHOCYTES % (AUTO) 6.8 % (21.0-51.0); MEAN CORPUSCULAR HEMOGLOBIN 38.9 pg (27.0-34.0); MEAN CORPUSCULAR HGB CONC 34.6 g/dL (33.0-35.0); MEAN CORPUSCULAR VOLUME 112.6 fL (80.0-100.0); MEAN PLATELET VOLUME 8.4 fL (7.4-11.0); MONOCYTES # (AUTO) 0.6 x10^3/uL (0.3-0.8); MONOCYTES % (AUTO) 4.4 % (0.0-13.0); NEUTROPHILS # (AUTO) 11.7 x10^3/uL (2.2-4.8); NEUTROPHILS % (AUTO) 88.4 % (42.0-75.0); PLATELET COUNT 377 X10^3/uL (150.0-450.0); RED BLOOD COUNT 2.63 X10^6/uL (3.5-5.4); RED CELL DISTRIBUTION WIDTH 15.7 % (11.6-16.5); WHITE BLOOD COUNT 13.3 X10^3/uL (3.6-10.0)
[2017-11-27 06:31] LABS: ALANINE AMINOTRANSFERASE 19 Units/L (12-78); ALBUMIN 2.7 g/dL (3.4-5.0); ALKALINE PHOSPHATASE 54 Units/L (46-116); ASPARTATE AMINO TRANSFERASE 17 Units/L (15-37); BLOOD UREA NITROGEN 12 mg/dL (7-18); CALCIUM 8.5 mg/dL (8.5-10.1); CARBON DIOXIDE 29.9 mmol/L (21-32); CHLORIDE 98 mmol/L (98-107); COR CA(FOR HYPOALB) 9.5 mg/dL (8.5-10.1); CREATININE 0.73 mg/dL (0.55-1.02); MAGNESIUM 1.8 mg/dL (1.7-2.9); SODIUM 134 mmol/L (136-145); TOTAL PROTEIN 5.3 g/dL (6.4-8.2); eGFR BLACK RACES > 60 (>60); eGFR NON BLACK RACES > 60 (>60)
[2017-11-27 07:19] LABS: PLATELET MORPHOLOGY COMMENT NORMAL (NORMAL)
[2017-11-27] MEDS: ALBUMIN HUMAN 25%- 100ML 100 ML IV SCH (08:41)
[2017-11-27] MEDS: ROCEPHIN VIAL 1 GM 1 GM in NS 100 ML IV + SPIKE MINIBAG* 100 ML IV SCH (09:05)
[2017-11-27] MEDS: SYNTHROID 75 mcg TAB PO SCH (09:06)
[2017-11-27] MEDS: TAB-A-VITE PO SCH (09:06)
[2017-11-27] MEDS: COREG TAB 6.25 MG PO SCH ×2 (09:07→20:13)
[2017-11-27] MEDS: EVISTA PO SCH (09:07)
[2017-11-27] MEDS: ALTACE CAP 10 MG PO SCH ×2 (09:07→20:13)
[2017-11-27] MEDS: FOLIC ACID TAB 1 MG PO SCH (09:07)
[2017-11-27] MEDS: HYDREA PO SCH ×2 (09:07→20:13)
[2017-11-27] MEDS: HEMOCYTE-PLUS PO SCH (09:07)
[2017-11-27] MEDS: MEGACE PO SCH ×2 (09:07→20:13)
[2017-11-27] MEDS: ECOTRIN TAB 325 MG PO SCH ×2 (09:07→20:14)
[2017-11-27] MEDS: PROCALAMINE 3 % 1,000 ML IV SCH (09:17)
[2017-11-27] MEDS: MAG-OX TAB PO PRN (09:17)
[2017-11-27] MEDS ORDERED: K-DUR TAB 20 MEQ PO ONE (09:19)
[2017-11-27] MEDS ORDERED: K-DUR TAB 20 MEQ PO SCH (10:00)
--- NOTE | 2017-11-27 12:21 | RAD ---
HISTORY: Shortness of breath Study: Chest AP portable Comparison: 11/26/2017 Findings: The heart is minimally enlarged. No congestive heart failure is noted. The mame are normal. The aorta is calcified. The lungs are well inflated. Retrocardiac infiltrate is again identified on the left u nchanged. There is now a right basilar infiltrate present. No definite pleural effusions are identifi ed. The bony thorax is unremarkable. IMPRESSION: No change left basilar lung infiltrate New right basilar lung infiltrate Reported By:
[2017-11-27] MEDS: FLORINEF PO SCH ×2 (13:24→20:13)
[2017-11-27] MEDS ORDERED: LASIX IVP ONE ×3 (13:34→17:38)
[2017-11-27] MEDS: ZyPREXA TAB 5 MG PO SCH (17:02)
[2017-11-27] MEDS: ZOCOR TAB 10 MG PO SCH (20:13)
[2017-11-28] MEDS: NS 1000 ML 1,000 ML IV SCH (01:41)
[2017-11-28 06:15] LABS: BASOPHILS # (AUTO) 0.1 X10^3/uL (0.0-0.1); BASOPHILS % (AUTO) 0.8 % (0.2-1.0); EOSINOPHILS # (AUTO) 0.2 x10^3/uL (0.0-0.2); EOSINOPHILS % (AUTO) 1.4 % (0.9-2.9); HEMATOCRIT 29.1 % (36.0-47.0); HEMOGLOBIN 10.1 g/dL (12.0-16.0); LYMPHOCYTES # (AUTO) 1.5 X10^3/uL (1.3-2.9); LYMPHOCYTES % (AUTO) 12.8 % (21.0-51.0); MEAN CORPUSCULAR HEMOGLOBIN 38.4 pg (27.0-34.0); MEAN CORPUSCULAR HGB CONC 34.6 g/dL (33.0-35.0); MEAN PLATELET VOLUME 8.3 fL (7.4-11.0); MONOCYTES # (AUTO) 0.6 x10^3/uL (0.3-0.8); MONOCYTES % (AUTO) 5.1 % (0.0-13.0); NEUTROPHILS # (AUTO) 9.1 x10^3/uL (2.2-4.8); NEUTROPHILS % (AUTO) 79.9 % (42.0-75.0); PLATELET COUNT 385 X10^3/uL (150.0-450.0); RED BLOOD COUNT 2.62 X10^6/uL (3.5-5.4); RED CELL DISTRIBUTION WIDTH 15.9 % (11.6-16.5); WHITE BLOOD COUNT 11.4 X10^3/uL (3.6-10.0)
[2017-11-28 06:34] LABS: ALANINE AMINOTRANSFERASE 20 Units/L (12-78); ALBUMIN 2.7 g/dL (3.4-5.0); ALKALINE PHOSPHATASE 47 Units/L (46-116); ASPARTATE AMINO TRANSFERASE 15 Units/L (15-37); BLOOD UREA NITROGEN 12 mg/dL (7-18); CALCIUM 8.4 mg/dL (8.5-10.1); CARBON DIOXIDE 31.8 mmol/L (21-32); CHLORIDE 95 mmol/L (98-107); COR CA(FOR HYPOALB) 9.4 mg/dL (8.5-10.1); CREATININE 0.56 mg/dL (0.55-1.02); MAGNESIUM 1.8 mg/dL (1.7-2.9); SODIUM 132 mmol/L (136-145); TOTAL PROTEIN 5.4 g/dL (6.4-8.2); eGFR BLACK RACES > 60 (>60); eGFR NON BLACK RACES > 60 (>60)
[2017-11-28 06:58] LABS: PLATELET MORPHOLOGY COMMENT NORMAL (NORMAL)
--- NOTE | 2017-11-28 07:23 | RAD ---
Examination: Portable AP chest History: SOB Comparison reference 11/27/2017 Findings: Continued normal heart size. Persistent airspace density in the retrocardiac left lower rosemarie g. Improving aeration of the right lower lung infiltrate. Improving central vascular congestion. No n ew abnormality identified since 1 day prior. Impression: Overall interval improvement. Persistent pneumonia/atelectasis in the left lower lobe. Reported By:
[2017-11-28] MEDS: ALBUMIN HUMAN 25%- 100ML 100 ML IV SCH (08:46)
[2017-11-28] MEDS: FLORINEF PO SCH (08:47)
[2017-11-28] MEDS: HYDREA PO SCH ×2 (08:47→21:28)
[2017-11-28] MEDS: K-DUR TAB 20 MEQ PO SCH ×3 (08:47→21:28)
[2017-11-28] MEDS: COREG TAB 6.25 MG PO SCH ×2 (08:48→21:28)
[2017-11-28] MEDS: HEMOCYTE-PLUS PO SCH (08:48)
[2017-11-28] MEDS: MEGACE PO SCH ×2 (08:48→21:28)
[2017-11-28] MEDS: ECOTRIN TAB 325 MG PO SCH ×2 (08:48→21:28)
[2017-11-28] MEDS: SYNTHROID 75 mcg TAB PO SCH (08:48)
[2017-11-28] MEDS: ALTACE CAP 10 MG PO SCH ×2 (08:48→21:28)
[2017-11-28] MEDS: EVISTA PO SCH (08:49)
[2017-11-28] MEDS: FOLIC ACID TAB 1 MG PO SCH (08:49)
[2017-11-28] MEDS: TAB-A-VITE PO SCH (08:49)
[2017-11-28] MEDS: MAG-OX TAB PO PRN (08:50)
[2017-11-28] MEDS: ROCEPHIN VIAL 1 GM 1 GM in NS 100 ML IV + SPIKE MINIBAG* 100 ML IV SCH (08:51)
[2017-11-28] MEDS ORDERED: SODIUM CHL HYPERTONIC ** 3% ** 500 ML IV ONE (09:00)
[2017-11-28] MEDS: PROCALAMINE 3 % 1,000 ML IV SCH (15:21)
[2017-11-28] MEDS: ZyPREXA TAB 5 MG PO SCH (17:05)
[2017-11-28] MEDS: ZOCOR TAB 10 MG PO SCH (21:29)
[2017-11-29 06:14] LABS: BASOPHILS # (AUTO) 0.1 X10^3/uL (0.0-0.1); BASOPHILS % (AUTO) 1.5 % (0.2-1.0); EOSINOPHILS # (AUTO) 0.1 x10^3/uL (0.0-0.2); EOSINOPHILS % (AUTO) 1.8 % (0.9-2.9); HEMATOCRIT 26.8 % (36.0-47.0); HEMOGLOBIN 9.4 g/dL (12.0-16.0); LYMPHOCYTES % (AUTO) 13.8 % (21.0-51.0); MEAN CORPUSCULAR HEMOGLOBIN 39.6 pg (27.0-34.0); MEAN CORPUSCULAR HGB CONC 35.2 g/dL (33.0-35.0); MEAN CORPUSCULAR VOLUME 112.6 fL (80.0-100.0); MEAN PLATELET VOLUME 8.4 fL (7.4-11.0); MONOCYTES # (AUTO) 0.4 x10^3/uL (0.3-0.8); MONOCYTES % (AUTO) 5.5 % (0.0-13.0); NEUTROPHILS # (AUTO) 5.7 x10^3/uL (2.2-4.8); NEUTROPHILS % (AUTO) 77.4 % (42.0-75.0); PLATELET COUNT 344 X10^3/uL (150.0-450.0); RED BLOOD COUNT 2.38 X10^6/uL (3.5-5.4); RED CELL DISTRIBUTION WIDTH 15.9 % (11.6-16.5); WHITE BLOOD COUNT 7.4 X10^3/uL (3.6-10.0)
[2017-11-29 06:46] LABS: ALANINE AMINOTRANSFERASE 17 Units/L (12-78); ALBUMIN 2.5 g/dL (3.4-5.0); ALKALINE PHOSPHATASE 30 Units/L (46-116); ASPARTATE AMINO TRANSFERASE 14 Units/L (15-37); BLOOD UREA NITROGEN 15 mg/dL (7-18); CALCIUM 8.2 mg/dL (8.5-10.1); CARBON DIOXIDE 30.6 mmol/L (21-32); CHLORIDE 103 mmol/L (98-107); COR CA(FOR HYPOALB) 9.4 mg/dL (8.5-10.1); CREATININE 0.62 mg/dL (0.55-1.02); SODIUM 137 mmol/L (136-145); TOTAL PROTEIN 4.8 g/dL (6.4-8.2); eGFR BLACK RACES > 60 (>60); eGFR NON BLACK RACES > 60 (>60)
[2017-11-29 06:53] LABS: PLATELET MORPHOLOGY COMMENT NORMAL (NORMAL)
--- NOTE | 2017-11-29 06:56 | RAD ---
HISTORY: Shortness of breath Study: Chest AP portable Comparison: 11/28/2017 Findings: The heart is within normal limits in size. The mame are normal. The upper lung ramirez are clear. Ther e is persistent airspace disease in the lung bases right greater than left unchanged in appearance fr om the prior examination. A small left pleural effusion is likely. IMPRESSION: Persistent bibasilar airspace disease right greater than left, unchanged Small left pleural effusion Reported By:
[2017-11-29] MEDS ORDERED: LASIX IVP ONE (09:00)
[2017-11-29] MEDS: ALBUMIN HUMAN 25%- 100ML 100 ML IV SCH (09:08)
[2017-11-29] MEDS: EVISTA PO SCH (09:09)
[2017-11-29] MEDS: HEMOCYTE-PLUS PO SCH (09:09)
[2017-11-29] MEDS: HYDREA PO SCH (09:09)
[2017-11-29] MEDS: MEGACE PO SCH ×2 (09:10→20:12)
[2017-11-29] MEDS: FOLIC ACID TAB 1 MG PO SCH (09:10)
[2017-11-29] MEDS: ALTACE CAP 10 MG PO SCH ×2 (09:10→20:11)
[2017-11-29] MEDS: COREG TAB 6.25 MG PO SCH ×2 (09:10→20:12)
[2017-11-29] MEDS: SYNTHROID 75 mcg TAB PO SCH (09:10)
[2017-11-29] MEDS: FLORINEF PO SCH (09:10)
[2017-11-29] MEDS: TAB-A-VITE PO SCH (09:10)
[2017-11-29] MEDS: ECOTRIN TAB 325 MG PO SCH ×2 (09:10→20:11)
[2017-11-29] MEDS: ROCEPHIN VIAL 1 GM 1 GM in NS 100 ML IV 100 ML IV SCH (11:00)
[2017-11-29] MEDS: ZyPREXA TAB 5 MG PO SCH (17:31)
[2017-11-29] MEDS: PROCALAMINE 3 % 1,000 ML IV SCH (19:07)
[2017-11-29] MEDS: ZOCOR TAB 10 MG PO SCH (20:12)
[2017-11-30] MEDS ORDERED: LASIX IVP ONE (00:04)
[2017-11-30 06:35] LABS: BASOPHILS # (AUTO) 0.1 X10^3/uL (0.0-0.1); BASOPHILS % (AUTO) 0.6 % (0.2-1.0); EOSINOPHILS % (AUTO) 0.1 % (0.9-2.9); HEMATOCRIT 30.4 % (36.0-47.0); HEMOGLOBIN 10.3 g/dL (12.0-16.0); LYMPHOCYTES # (AUTO) 0.7 X10^3/uL (1.3-2.9); LYMPHOCYTES % (AUTO) 5.6 % (21.0-51.0); MEAN CORPUSCULAR HEMOGLOBIN 38.2 pg (27.0-34.0); MEAN CORPUSCULAR HGB CONC 33.9 g/dL (33.0-35.0); MEAN CORPUSCULAR VOLUME 112.6 fL (80.0-100.0); MEAN PLATELET VOLUME 8.5 fL (7.4-11.0); MONOCYTES # (AUTO) 0.6 x10^3/uL (0.3-0.8); MONOCYTES % (AUTO) 4.4 % (0.0-13.0); NEUTROPHILS # (AUTO) 11.1 x10^3/uL (2.2-4.8); NEUTROPHILS % (AUTO) 89.3 % (42.0-75.0); PLATELET COUNT 415 X10^3/uL (150.0-450.0); RED CELL DISTRIBUTION WIDTH 15.9 % (11.6-16.5); WHITE BLOOD COUNT 12.5 X10^3/uL (3.6-10.0)
[2017-11-30 06:47] LABS: ALANINE AMINOTRANSFERASE 19 Units/L (12-78); ALKALINE PHOSPHATASE 36 Units/L (46-116); ASPARTATE AMINO TRANSFERASE 16 Units/L (15-37); BLOOD UREA NITROGEN 13 mg/dL (7-18); CALCIUM 8.5 mg/dL (8.5-10.1); CHLORIDE 96 mmol/L (98-107); COR CA(FOR HYPOALB) 9.3 mg/dL (8.5-10.1); COR NA(FOR HYPERGLY) 133 mmol/L (136-145); CREATININE 0.66 mg/dL (0.55-1.02); SODIUM 133 mmol/L (136-145); TOTAL PROTEIN 5.4 g/dL (6.4-8.2); eGFR BLACK RACES > 60 (>60); eGFR NON BLACK RACES > 60 (>60)
--- NOTE | 2017-11-30 06:52 | RAD ---
Examination: Portable AP chest History: SOB Comparison 11/29/2017 Findings: No change in cardiac size. Persistent pleural-parenchymal opacity left base. Increasing dif fuse opacity right lower lung consistent with progressive infiltrate or fluid. No pneumothorax seen. Impression: Increasing opacity right base consistent with infiltrate and possibly pleural fluid. No c hange otherwise. Reported By:
[2017-11-30 07:15] LABS: PLATELET MORPHOLOGY COMMENT NORMAL (NORMAL)
[2017-11-30] MEDS ORDERED: LASIX PO SCH (08:00)
[2017-11-30] MEDS: ALBUMIN HUMAN 25%- 100ML 100 ML IV SCH (08:22)
[2017-11-30] MEDS: ROCEPHIN VIAL 1 GM 1 GM in NS 100 ML IV 100 ML IV SCH (08:22)
[2017-11-30] MEDS: FOLIC ACID TAB 1 MG PO SCH (08:23)
[2017-11-30] MEDS: TAB-A-VITE PO SCH (08:23)
[2017-11-30] MEDS: HEMOCYTE-PLUS PO SCH (08:23)
[2017-11-30] MEDS: ECOTRIN TAB 325 MG PO SCH ×2 (08:23→20:32)
[2017-11-30] MEDS: FLORINEF PO SCH (08:23)
[2017-11-30] MEDS: COREG TAB 6.25 MG PO SCH ×2 (08:23→21:00)
[2017-11-30] MEDS: SYNTHROID 75 mcg TAB PO SCH (08:23)
[2017-11-30] MEDS: MEGACE PO SCH ×2 (08:23→20:32)
[2017-11-30] MEDS: ALTACE CAP 10 MG PO SCH ×2 (08:23→21:00)
[2017-11-30] MEDS: LASIX IVP SCH ×4 (08:23→21:00)
[2017-11-30] MEDS: EVISTA PO SCH (08:40)
[2017-11-30 12:14] LABS: APPEARANCE,URINE CLEAR (CLEAR); COLOR,URINE YELLOW (YELLOW); GLUCOSE, URINE NEGATIVE (NEGATIVE); PROTEIN,URINE NEGATIVE (NEGATIVE)
[2017-11-30 12:15] LABS: BACTERIA,URINE NEGATIVE /HPF (NEGATIVE); BILIRUBIN,URINE NEGATIVE (NEGATIVE); BLOOD/HEMOGLOBIN,URINE 2+ (NEGATIVE); KETONES,URINE NEGATIVE (NEGATIVE); LEUKOCYTE ESTERASE ,URINE NEGATIVE (NEGATIVE); NITRITES,URINE NEGATIVE (NEGATIVE); RBC,URINE 0-5 /HPF (NEGATIVE); SQUAMOUS EPITHELIAL CELL,UR NEGATIVE /HPF (NEGATIVE); UROBILINOGEN,URINE NORMAL (NORMAL)
[2017-11-30] MEDS: DUONEB 0.5 MG/3 MG NEB SCH ×3 (13:42→20:20)
[2017-11-30] MEDS ORDERED: SALINE 3% 15 ML NEB TX ONE (13:49)
[2017-11-30] MEDS: POTASSIUM CHLORIDE LIQ 20 MEQ UDC PO PRN (18:25)
[2017-11-30] MEDS: MAG-OX TAB PO PRN (18:25)
[2017-11-30] MEDS: ZyPREXA TAB 5 MG PO SCH (18:25)
[2017-11-30] MEDS: ZOCOR TAB 10 MG PO SCH (20:32)
--- NOTE | 2017-11-30 23:34 | PCM.PROG ---
Progress Note - Progress Note for Day of Date: 11/29/17 - Subjective Subjective: WAS ADMITTED ON 11/22/2016 FOR GENERALIZED WEAKNESS, HYPERNATREMIA, AND ALTERED MENTAL STATUS. HER SODIUM HAS BEEN CORRECTED SINCE ADMISSION. TODAY, SHE IS ALERT AND ORIENTED, LYING IN BED ON MORNING ROUNDS. PATIENTS FAMILY IS AT BEDSIDE ON MORNING ROUNDS. FAMILY REPORTS THAT PATIENT CONTINUES WITH INTERMITTENT CONFUSION, MAINLY AT BEDTIME. ON EXAMINATION TODAY, HEART IS REGULAR IN RATE AND RHYTHM. SHE CONTINUES WITH SCATTERED WHEEZING WITH DIMINISHED LUNG SOUNDS. SHE IS CURRENTLY WEARING SUPPLEMENTAL OXYGEN VIA NASAL CANNULA AT 2L/MIN. ABDOMEN IS ROUND, SOFT, AND NON-TENDER WITH NORMAL BOWEL SOUNDS NOTED IN ALL QUADRANTS. NORMAL RANGE OF MOTION NOTED TO ALL EXTREMITIES. SHE CONTINUES WITH A CALLAWAY CATHETER TO BEDSIDE DRAINAGE AT THIS TIME. STAFF REPORTS THAT SHE HAS AMBULATED WELL WITH ASSISTANCE AROUND ROOM, HOWEVER, HAS MODERATE SHORTNESS OF BREATH AFTER RETURNING TO BED. HER VITAL SIGNS THIS MORNING ARE 98.3-105-22-98%-108/57. LABS WERE OBTAINED THIS MORNING. ABNORMAL LAB VALUES INCLUDE THE FOLLOWING: RBC 2.38, HGB 9.4, HCT 26.8, CALCIUM 8.2, AST 14, ALK PHOS 30, TOTAL PROTEIN 4.8, ALBUMIN 2.5. CHEST XRAY WAS OBTAINED TODAY AND REPORTS PERSISTENT BIBASILAR AIRSPACE DISEASE RIGHT GREATER THAN LEFT, UNCHANGED. SMALL LEFT PLEURAL EFFUSION. WE WILL ADMINISTER LASIX 20MG IV X 1 TODAY AND CONTINUE TO TREAT FOR NEW ONSET DEMENTIA AND PLEURAL EFFUSION. WE PLAN TO FOLLOW UP WITH AM LABS AND CHEST XRAY AND CONTINUE TO MONITOR. - Past Medical Family Social History Past Med/Fam/Surg Hx: No changes since H&P Allergies: Allergies No Known Drug Allergies Allergy (Verified 11/22/17 13:51) - Review of Systems ROS: No change since H&P - Vital Signs and I&O's Vital Signs: Temperature 97.5 F Pulse Rate [Left Brachial] 91 Pulse Rate 91 Respiratory Rate 17 Blood Pressure [Right Arm] 94/50 Blood Pressure [Left Arm] 134/61 Blood Pressure 185/105 O2 Sat by Pulse Oximetry 94 Intake and Output: Intake & Output 11/28/17 11/29/17 11/30/17 12/01/17 11:59 11:59 11:59 11:59 Intake Total 1887 2637 2642 923 Output Total 3000 900 3200 1000 Balance -1113 1737 -558 -77 - Physical Exam Oriented: Normal Eyes: Normal. negative: Blurred Vision, Diplopia, Discharge, Pain, Redness, Photophobia, Other Ear: Normal. negative: Right, Left, Swelling, Ecchymosis, Hemotypanum, Abrasion , Laceration Nose: Normal. negative: Injected, Discharge, Blood, Other Throat: Normal. negative: Tonsillar Hypertrophy, Red, Exudate, Dry, Other Respiratory: Right, Left, Generalized, Diminished, Wheezes Cardiovascular: Normal. negative: Tachycardia, Bradycardia, Irregular, S3, S4, Systolic, Diastolic, Murmur, Edema, Other : Normal. negative: Dysuria, Hematuria, Frequency, Discharge, Testicular Pain , Bleeding, , Other Auscultation: Bowel Sounds: Normal. negative: Bruit, Absent, Increased, Decreased, High Pitched, Other Palpation: Normal Tenderness: Normal. negative: Diffuse, RUQ, RLQ, LUQ, LLQ, Epigastric, Periumbilical, Suprapubic, Mild, Moderate, Severe, Rebound, Guarding, Rigidity, Other Skin: Normal. negative: Decreased Turgur, Rash, Papular, Macular, Maculopapular , Vesicular, Pustular, Petechial, Red, Tender, Hot, Diaphoresis, Wound, Bruising , Ecchymosis, Other Musculoskeletal: Normal. negative: Right, Left, Shoulder, Clavicle, Arm, Elbow , Forearm, Wrist, Hand, Hip, Thigh, Knee, Leg, Ankle, Foot, Back:Thoracic, Back: Lumbar, Back:Midline, Back:Paraspinous, Pelvis, Swelling, Tender, Deformity, Pulse Deficit, Motor Deficit, Sensory Deficit, Instability, Crepitance Psychiatric: Normal Mood Description: Calm Affect: Normal Speech Pattern: Clear, Appropriate - Laboratory and Diagnostics Result Diagrams: 11/30/17 05:35 11/30/17 05:35 Labs: 11/30/17 14:00 Sputum - Expectorated Sputum - Final Laboratory WBC 12.5 X10^3/uL (3.6-10.0) H 11/30/17 05:35 RBC 2.70 X10^6/uL (3.5-5.4) L 11/30/17 05:35 Hgb 10.3 g/dL (12.0-16.0) L 11/30/17 05:35 Hct 30.4 % (36.0-47.0) L 11/30/17 05:35 MCV 112.6 fL (80.0-100.0) H 11/30/17 05:35 MCH 38.2 pg (27.0-34.0) H 11/30/17 05:35 MCHC 33.9 g/dL (33.0-35.0) 11/30/17 05:35 RDW 15.9 % (11.6-16.5) 11/30/17 05:35 Plt Count 415 X10^3/uL (150.0-450.0) 11/30/17 05:35 Plt Count Comment Adequate (ADEQUATE) 11/30/17 05:35 MPV 8.5 fL (7.4-11.0) 11/30/17 05:35 Neut % 89.3 % (42.0-75.0) H 11/30/17 05:35 Lymph % 5.6 % (21.0-51.0) L 11/30/17 05:35 [place] % 4.4 % (0.0-13.0) 11/30/17 05:35 Eos % 0.1 % (0.9-2.9) L 11/30/17 05:35 Baso % 0.6 % (0.2-1.0) 11/30/17 05:35 Neut # 11.1 x10^3/uL (2.2-4.8) H 11/30/17 05:35 Lymph # 0.7 X10^3/uL (1.3-2.9) L 11/30/17 05:35 [place] # 0.6 x10^3/uL (0.3-0.8) 11/30/17 05:35 Eos # 0.0 x10^3/uL (0.0-0.2) 11/30/17 05:35 Baso # 0.1 X10^3/uL (0.0-0.1) 11/30/17 05:35 Absolute Nucleated RBC 0.0 /100WBC 11/30/17 05:35 Total Counted 100 11/30/17 05:35 Neutrophils % (Manual) 88 % (39-76) H 11/30/17 05:35 Band Neutrophils % 2 % (0-10) 11/22/17 14:32 Lymphocytes % (Manual) 8 % (13-43) L 11/30/17 05:35 Monocytes % (Manual) 2 % (4-9) L 11/30/17 05:35 Eosinophils % (Manual) 2 % (0-6) 11/30/17 05:35 Plt Morphology Comment Normal (NORMAL) 11/30/17 05:35 RBC Morphology Abnormal (NORMAL) A 11/30/17 05:35 Macrocytosis 2+ A 11/30/17 05:35 Sodium 133 mmol/L (136-145) L 11/30/17 05:35 Corrected Sodium 133 mmol/L (136-145) L 11/30/17 05:35 Potassium 3.4 mmol/L (3.5-5.1) L 11/30/17 05:35 Chloride 96 mmol/L (98-107) L 11/30/17 05:35 Carbon Dioxide 29.0 mmol/L (21-32) 11/30/17 05:35 BUN 13 mg/dL (7-18) 11/30/17 05:35 Creatinine 0.66 mg/dL (0.55-1.02) 11/30/17 05:35 Est GFR (MDRD) Af Amer > 60 (>60) 11/30/17 05:35 Est GFR (MDRD) Non-Af > 60 (>60) 11/30/17 05:35 Glucose 117 mg/dL (65-99) H 11/30/17 05:35 Calcium 8.5 mg/dL (8.5-10.1) 11/30/17 05:35 Corrected Calcium 9.3 mg/dL (8.5-10.1) 11/30/17 05:35 Magnesium 1.7 mg/dL (1.7-2.9) 11/30/17 05:35 Total Bilirubin 0.60 mg/dL (0.2-1.0) 11/30/17 05:35 AST 16 Units/L (15-37) 11/30/17 05:35 ALT 19 Units/L (12-78) 11/30/17 05:35 Alkaline Phosphatase 36 Units/L (46-116) L 11/30/17 05:35 Creatine Kinase 37 Units/L (26-192) 11/23/17 04:57 CK-MB (CK-2) 1.2 ng/mL (0-4.0) 11/23/17 04:57 CK/CKMB % Calc 3.2 % (<4) 11/23/17 04:57 Troponin I 0.02 ng/mL (0-1.5) 11/23/17 04:57 B-Natriuretic Peptide 2440 pg/mL (0-79) H* 11/30/17 05:35 Total Protein 5.4 g/dL (6.4-8.2) L 11/30/17 05:35 Albumin 3.0 g/dL (3.4-5.0) L 11/30/17 05:35 Globulin 2.4 g/dL (2.5-4.5) L 11/30/17 05:35 Albumin/Globulin Ratio 1.3 Ratio (1.1-2.1) 11/30/17 05:35 Specimen Type Catherized urine 11/30/17 12:00 Urine Color Yellow (YELLOW) 11/30/17 12:00 Urine Appearance Clear (CLEAR) 11/30/17 12:00 Urine pH 6.0 (5.0 - 8.0) 11/30/17 12:00 Ur Specific [place] 1.010 (1.000-1.030) 11/30/17 12:00 Urine Protein Negative (NEGATIVE) 11/30/17 12:00 Urine Glucose (UA) Negative (NEGATIVE) 11/30/17 12:00 Urine Ketones Negative (NEGATIVE) 11/30/17 12:00 Urine Occult Blood 2+ (NEGATIVE) 11/30/17 12:00 Urine Nitrite Negative (NEGATIVE) 11/30/17 12:00 Urine Bilirubin Negative (NEGATIVE) 11/30/17 12:00 Urine Urobilinogen Normal (NORMAL) 11/30/17 12:00 Ur Leukocyte Esterase Negative (NEGATIVE) 11/30/17 12:00 Urine RBC 0-5 /HPF (NEGATIVE) 11/30/17 12:00 Urine WBC None seen /HPF (NEGATIVE) 11/30/17 12:00 Ur Squamous Epith Cells Negative /HPF (NEGATIVE) 11/30/17 12:00 Urine Bacteria Negative /HPF (NEGATIVE) 11/30/17 12:00 Urine Mucus Few /HPF (NEGATIVE) 11/22/17 20:13 Ur Culture Indicated? No/not indicated 11/30/17 12:00 - Plan (1) Hyponatremia Status: Resolved Plan: CONTINUE TO MONITOR (2) Mental status alteration Status: Acute Qualifiers: Altered mental status type: transient alteration of awareness Qualified Code(s): R40.4 - Transient alteration of awareness Plan: CONTINUE ZYPREXA 5MG HS, CONTINUE HALDOL IV, CONTINUE TO MONITOR (3) Pulmonary edema Status: Acute Qualifiers: Chronicity: acute Qualified Code(s): J81.0 - Acute pulmonary edema Plan: CONTINUE TO MONITOR LABS AND CHEST XRAY (4) Hypoalbuminemia due to protein-calorie malnutrition Status: Acute Plan: ALBUMIN 25% IV DAILY, TPN, MEGACE 40MG PO BID, CONTINUE TO MONITOR (5) Hypoproteinemia Status: Acute Plan: ALBUMIN 25% IV DAILY, TPN, MEGACE 40MG PO BID, CONTINUE TO MONITOR
[2017-12-01] MEDS: DUONEB 0.5 MG/3 MG NEB SCH ×3 (01:15→09:26)
[2017-12-01 06:12] LABS: BASOPHILS # (AUTO) 0.1 X10^3/uL (0.0-0.1); BASOPHILS % (AUTO) 1.1 % (0.2-1.0); EOSINOPHILS # (AUTO) 0.1 x10^3/uL (0.0-0.2); EOSINOPHILS % (AUTO) 0.9 % (0.9-2.9); HEMATOCRIT 27.4 % (36.0-47.0); HEMOGLOBIN 9.5 g/dL (12.0-16.0); LYMPHOCYTES # (AUTO) 1.4 X10^3/uL (1.3-2.9); LYMPHOCYTES % (AUTO) 15.6 % (21.0-51.0); MEAN CORPUSCULAR HEMOGLOBIN 38.9 pg (27.0-34.0); MEAN CORPUSCULAR HGB CONC 34.7 g/dL (33.0-35.0); MEAN CORPUSCULAR VOLUME 112.1 fL (80.0-100.0); MEAN PLATELET VOLUME 8.4 fL (7.4-11.0); MONOCYTES # (AUTO) 0.5 x10^3/uL (0.3-0.8); MONOCYTES % (AUTO) 5.5 % (0.0-13.0); NEUTROPHILS # (AUTO) 7.1 x10^3/uL (2.2-4.8); NEUTROPHILS % (AUTO) 76.9 % (42.0-75.0); PLATELET COUNT 343 X10^3/uL (150.0-450.0); RED BLOOD COUNT 2.45 X10^6/uL (3.5-5.4); WHITE BLOOD COUNT 9.2 X10^3/uL (3.6-10.0)
[2017-12-01 06:27] LABS: ALANINE AMINOTRANSFERASE 18 Units/L (12-78); ALBUMIN 2.8 g/dL (3.4-5.0); ALKALINE PHOSPHATASE 33 Units/L (46-116); ASPARTATE AMINO TRANSFERASE 15 Units/L (15-37); BLOOD UREA NITROGEN 19 mg/dL (7-18); CALCIUM 8.5 mg/dL (8.5-10.1); CARBON DIOXIDE 34.9 mmol/L (21-32); CHLORIDE 97 mmol/L (98-107); COR CA(FOR HYPOALB) 9.5 mg/dL (8.5-10.1); CREATININE 0.82 mg/dL (0.55-1.02); SODIUM 134 mmol/L (136-145); TOTAL PROTEIN 5.1 g/dL (6.4-8.2); eGFR BLACK RACES > 60 (>60); eGFR NON BLACK RACES > 60 (>60)
[2017-12-01 06:41] LABS: PLATELET MORPHOLOGY COMMENT NORMAL (NORMAL)
--- NOTE | 2017-12-01 06:57 | RAD ---
Examination: Portable AP chest History: SOB Comparison 11/30/2017 Findings: Continued normal heart size with improving vascular congestion and bilateral infiltrates. A irspace densities continue in both lower lungs. No new abnormality noted. Impression: Interval improvement in bilateral lower lobe infiltrates or edema with no new abnormality demonstrated. Reported By:
[2017-12-01] MEDS: POTASSIUM CHLORIDE LIQ 20 MEQ UDC PO PRN (09:22)
[2017-12-01] MEDS: EVISTA PO SCH (09:22)
[2017-12-01] MEDS: SYNTHROID 75 mcg TAB PO SCH (09:23)
[2017-12-01] MEDS: FOLIC ACID TAB 1 MG PO SCH (09:23)
[2017-12-01] MEDS: HEMOCYTE-PLUS PO SCH (09:23)
[2017-12-01] MEDS: FLORINEF PO SCH (09:23)
[2017-12-01] MEDS: TAB-A-VITE PO SCH (09:23)
[2017-12-01] MEDS: MEGACE PO SCH (09:23)
[2017-12-01] MEDS: ECOTRIN TAB 325 MG PO SCH (09:24)
[2017-12-01] MEDS: ALBUMIN HUMAN 25%- 100ML 100 ML IV SCH (09:24)
[2017-12-01] MEDS: ROCEPHIN VIAL 1 GM 1 GM in NS 100 ML IV 100 ML IV SCH (09:24)
[2017-12-01 11:02] VITALS: BP 107/51
[2017-12-01] MEDS: ALTACE CAP 10 MG PO SCH (11:06)
[2017-12-01] MEDS: COREG TAB 6.25 MG PO SCH (11:07)
[2017-12-01] MEDS: LASIX IVP SCH (11:07)
--- NOTE | 2017-12-01 17:54 | PCM.PROG ---
Progress Note - Progress Note for Day of Date: 12/01/17 - Subjective Subjective: WAS ADMITTED ON 11/22/2016 FOR GENERALIZED WEAKNESS, HYPONATREMIA, AND ALTERED MENTAL STATUS. HER SODIUM HAS BEEN CORRECTED SINCE ADMISSION. TODAY, SHE IS ALERT AND ORIENTED, SITTING UP IN BED ON MORNING ROUNDS. PATIENTS FAMILY IS AT BEDSIDE ON MORNING ROUNDS. FAMILY REPORTS THAT PATIENT RESTED WELL THROUGHOUT THE NIGHT. THEY REPORT THAT SHE DOES COMPLAIN OF SHORNTESS OF BREATH AFTER AMBULATING IN ROOM. ON EXAMINATION TODAY, HEART IS REGULAR IN RATE AND RHYTHM. SHE CONTINUES WITH SCATTERED WHEEZING WITH DIMINISHED LUNG SOUNDS. SHE IS CURRENTLY WEARING SUPPLEMENTAL OXYGEN VIA NASAL CANNULA AT 2L/MIN. ABDOMEN IS ROUND, SOFT, AND NON-TENDER WITH NORMAL BOWEL SOUNDS NOTED IN ALL QUADRANTS. NORMAL RANGE OF MOTION NOTED TO ALL EXTREMITIES. HER VITAL SIGNS THIS MORNING ARE 97.0-105-23-98%-125/60. LABS WERE OBTAINED THIS MORNING. ABNORMAL LAB VALUES INCLUDE THE FOLLOWING: WBC 12.5, RBC 2.70, HGB 10.3, HCT 30.4, SODIUM 133, POTASSIUM 3.4, CHLORIDE 96, GLUCOSE 117, ALK PHOS 36, TOTAL PROTEIN 5.4, ALBUMIN 3.0, BNP 2440. CHEST XRAY WAS OBTAINED THIS MORNING AND REPORTS INCREASING OPACITY RIGHT BASE CONSISTENT WITH INFILTRATE AND POSSIBLY PLEURAL FLUID. NO CHANGE OTHERWISE. TODAY, WE PLAN TO START LASIX 40MG IV BID. WE WILL DISCONTINUE HER HOME MEDICATION HYDROXYUREA DUE TO HYPONATREMIA. OTHERWISE, WE WILL CONTINUE WITH CURRENT PLAN OF CARE. WE PLAN TO FOLLOW UP WITH AM LABS AND CHEST XRAY AND CONTINUE TO MONITOR PATIENT. - Past Medical Family Social History Past Med/Fam/Surg Hx: No changes since H&P Allergies: Allergies No Known Drug Allergies Allergy (Verified 11/22/17 13:51) - Review of Systems ROS: No change since H&P - Vital Signs and I&O's Vital Signs: Temperature 98.1 F Pulse Rate [Left Brachial] 93 Pulse Rate 88 Respiratory Rate 19 Blood Pressure [Right Arm] 107/51 Blood Pressure [Left Arm] 134/61 Blood Pressure 185/105 O2 Sat by Pulse Oximetry 97 Intake and Output: Intake & Output 11/29/17 11/30/17 12/01/17 12/02/17 11:59 11:59 11:59 11:59 Intake Total 2637 2642 1283 Output Total 900 3200 1500 Balance 1737 -558 -971 - Physical Exam Oriented: Normal Eyes: Normal. negative: Blurred Vision, Diplopia, Discharge, Pain, Redness, Photophobia, Other Ear: Normal. negative: Right, Left, Swelling, Ecchymosis, Hemotypanum, Abrasion , Laceration Nose: Normal. negative: Injected, Discharge, Blood, Other Throat: Normal. negative: Tonsillar Hypertrophy, Red, Exudate, Dry, Other Respiratory: Right, Left, Generalized, Diminished, Wheezes Cardiovascular: Normal. negative: Tachycardia, Bradycardia, Irregular, S3, S4, Systolic, Diastolic, Murmur, Edema, Other : Normal. negative: Dysuria, Hematuria, Frequency, Discharge, Testicular Pain , Bleeding, , Other Auscultation: Bowel Sounds: Normal. negative: Bruit, Absent, Increased, Decreased, High Pitched, Other Palpation: Normal Tenderness: Normal. negative: Diffuse, RUQ, RLQ, LUQ, LLQ, Epigastric, Periumbilical, Suprapubic, Mild, Moderate, Severe, Rebound, Guarding, Rigidity, Other Skin: Normal. negative: Decreased Turg[place], Rash, Papular, Macular, Maculopapular , Vesicular, Pustular, Petechial, Red, Tender, Hot, Diaphoresis, Wound, Bruising , Ecchymosis, Other Musculoskeletal: Normal. negative: Right, Left, Shoulder, Clavicle, Arm, Elbow , Forearm, Wrist, Hand, Hip, Thigh, Knee, Leg, Ankle, Foot, Back:Thoracic, Back: Lumbar, Back:Midline, Back:Paraspinous, Pelvis, Swelling, Tender, Deformity, Pulse Deficit, Motor Deficit, Sensory Deficit, Instability, Crepitance Psychiatric: Normal Mood Description: Calm Affect: Normal Speech Pattern: Clear, Appropriate - Laboratory and Diagnostics Result Diagrams: 12/01/17 05:00 12/01/17 05:00 Labs: 11/30/17 14:00 Sputum - Expectorated Sputum Sputum Culture - Preliminary 11/30/17 14:00 Sputum - Expectorated Sputum - Final Laboratory WBC 9.2 X10^3/uL (3.6-10.0) 12/01/17 05:00 RBC 2.45 X10^6/uL (3.5-5.4) L 12/01/17 05:00 Hgb 9.5 g/dL (12.0-16.0) L 12/01/17 05:00 Hct 27.4 % (36.0-47.0) L 12/01/17 05:00 MCV 112.1 fL (80.0-100.0) H 12/01/17 05:00 MCH 38.9 pg (27.0-34.0) H 12/01/17 05:00 MCHC 34.7 g/dL (33.0-35.0) 12/01/17 05:00 RDW 16.0 % (11.6-16.5) 12/01/17 05:00 Plt Count 343 X10^3/uL (150.0-450.0) 12/01/17 05:00 Plt Count Comment Adequate (ADEQUATE) 12/01/17 05:00 MPV 8.4 fL (7.4-11.0) 12/01/17 05:00 Neut % 76.9 % (42.0-75.0) H 12/01/17 05:00 Lymph % 15.6 % (21.0-51.0) L 12/01/17 05:00 [place] % 5.5 % (0.0-13.0) 12/01/17 05:00 Eos % 0.9 % (0.9-2.9) 12/01/17 05:00 Baso % 1.1 % (0.2-1.0) H 12/01/17 05:00 Neut # 7.1 x10^3/uL (2.2-4.8) H 12/01/17 05:00 Lymph # 1.4 X10^3/uL (1.3-2.9) 12/01/17 05:00 [place] # 0.5 x10^3/uL (0.3-0.8) 12/01/17 05:00 Eos # 0.1 x10^3/uL (0.0-0.2) 12/01/17 05:00 Baso # 0.1 X10^3/uL (0.0-0.1) 12/01/17 05:00 Absolute Nucleated RBC 0.1 /100WBC 12/01/17 05:00 Total Counted 100 11/30/17 05:35 Neutrophils % (Manual) 88 % (39-76) H 11/30/17 05:35 Band Neutrophils % 2 % (0-10) 11/22/17 14:32 Lymphocytes % (Manual) 8 % (13-43) L 11/30/17 05:35 Monocytes % (Manual) 2 % (4-9) L 11/30/17 05:35 Eosinophils % (Manual) 2 % (0-6) 11/30/17 05:35 Plt Morphology Comment Normal (NORMAL) 12/01/17 05:00 RBC Morphology Abnormal (NORMAL) A 12/01/17 05:00 Macrocytosis 2+ A 12/01/17 05:00 Sodium 134 mmol/L (136-145) L 12/01/17 05:00 Corrected Sodium TNP 12/01/17 05:00 Potassium 3.2 mmol/L (3.5-5.1) L 12/01/17 05:00 Chloride 97 mmol/L (98-107) L 12/01/17 05:00 Carbon Dioxide 34.9 mmol/L (21-32) H 12/01/17 05:00 BUN 19 mg/dL (7-18) H 12/01/17 05:00 Creatinine 0.82 mg/dL (0.55-1.02) 12/01/17 05:00 Est GFR (MDRD) Af Amer > 60 (>60) 12/01/17 05:00 Est GFR (MDRD) Non-Af > 60 (>60) 12/01/17 05:00 Glucose 91 mg/dL (65-99) 12/01/17 05:00 Calcium 8.5 mg/dL (8.5-10.1) 12/01/17 05:00 Corrected Calcium 9.5 mg/dL (8.5-10.1) 12/01/17 05:00 Magnesium 1.8 mg/dL (1.7-2.9) 12/01/17 05:00 Total Bilirubin 0.40 mg/dL (0.2-1.0) 12/01/17 05:00 AST 15 Units/L (15-37) 12/01/17 05:00 ALT 18 Units/L (12-78) 12/01/17 05:00 Alkaline Phosphatase 33 Units/L (46-116) L 12/01/17 05:00 Creatine Kinase 37 Units/L (26-192) 11/23/17 04:57 CK-MB (CK-2) 1.2 ng/mL (0-4.0) 11/23/17 04:57 CK/CKMB % Calc 3.2 % (<4) 11/23/17 04:57 Troponin I 0.02 ng/mL (0-1.5) 11/23/17 04:57 B-Natriuretic Peptide 2440 pg/mL (0-79) H* 11/30/17 05:35 Total Protein 5.1 g/dL (6.4-8.2) L 12/01/17 05:00 Albumin 2.8 g/dL (3.4-5.0) L 12/01/17 05:00 Globulin 2.3 g/dL (2.5-4.5) L 12/01/17 05:00 Albumin/Globulin Ratio 1.2 Ratio (1.1-2.1) 12/01/17 05:00 Specimen Type Catherized urine 11/30/17 12:00 Urine Color Yellow (YELLOW) 11/30/17 12:00 Urine Appearance Clear (CLEAR) 11/30/17 12:00 Urine pH 6.0 (5.0 - 8.0) 11/30/17 12:00 Ur Specific [place] 1.010 (1.000-1.030) 11/30/17 12:00 Urine Protein Negative (NEGATIVE) 11/30/17 12:00 Urine Glucose (UA) Negative (NEGATIVE) 11/30/17 12:00 Urine Ketones Negative (NEGATIVE) 11/30/17 12:00 Urine Occult Blood 2+ (NEGATIVE) 11/30/17 12:00 Urine Nitrite Negative (NEGATIVE) 11/30/17 12:00 Urine Bilirubin Negative (NEGATIVE) 11/30/17 12:00 Urine Urobilinogen Normal (NORMAL) 11/30/17 12:00 Ur Leukocyte Esterase Negative (NEGATIVE) 11/30/17 12:00 Urine RBC 0-5 /HPF (NEGATIVE) 11/30/17 12:00 Urine WBC None seen /HPF (NEGATIVE) 11/30/17 12:00 Ur Squamous Epith Cells Negative /HPF (NEGATIVE) 11/30/17 12:00 Urine Bacteria Negative /HPF (NEGATIVE) 11/30/17 12:00 Urine Mucus Few /HPF (NEGATIVE) 11/22/17 20:13 Ur Culture Indicated? No/not indicated 11/30/17 12:00 - Plan (1) Hyponatremia Status: Resolved Plan: CONTINUE TO MONITOR (2) Mental status alteration Status: Acute Qualifiers: Altered mental status type: transient alteration of awareness Qualified Code(s): R40.4 - Transient alteration of awareness Plan: CONTINUE ZYPREXA 2.5MG HS, CONTINUE HALDOL IV, CONTINUE TO MONITOR (3) Pulmonary edema Status: Acute Qualifiers: Chronicity: acute Qualified Code(s): J81.0 - Acute pulmonary edema Plan: LASIX 40MG IV BID, CHECK BNP, CONTINUE TO MONITOR LABS AND CHEST XRAY (4) Hypoalbuminemia due to protein-calorie malnutrition Status: Acute Plan: ALBUMIN 25% IV DAILY, TPN, MEGACE 40MG PO BID, CONTINUE TO MONITOR (5) Hypoproteinemia Status: Acute Plan: ALBUMIN 25% IV DAILY, TPN, MEGACE 40MG PO BID, CONTINUE TO MONITOR
== END 2017-12-01 11:45 | disposition home health service (06) | DRG 640 ==
LOC: ER 13:58 → ICU 15:25
PROVIDERS: ADMIT Internal Medicine; ATTEND Internal Medicine
DX: E87.1 Hypo-osmolality and hyponatremia (principal); E86.0 Dehydration; D72.828 Other elevated white blood cell count; R94.31 Abnormal electrocardiogram [ECG] [EKG]; R53.1 Weakness; R40.4 Transient alteration of awareness; I10 Essential (primary) hypertension; I50.9 Heart failure, unspecified; R06.02 Shortness of breath; I51.7 Cardiomegaly; J81.0 Acute pulmonary edema; E88.09 Other disorders of plasma-protein metabolism, not elsewhere classified; B95.2 Enterococcus as the cause of diseases classified elsewhere; R26.89 Other abnormalities of gait and mobility
CPT/HCPCS: 36415; 70450; 70551; 71045; 80053; 81001; 82550; 82553; 83735; 83880; 84132; 84484; 85025; 87070; 87077; 87186; 87205; 93005; 94640; 96374; 99284; 99285; A4222; B5200; P9047; S0176; S0179; J0696; J1630; J1940; J2060; J3480; J7620

== ENCOUNTER 2017-12-07 19:08 | Inpatient (IN) | payer OTHER, MEDICARE ==
[2017-12-07] MEDS ORDERED: DUONEB 0.5 MG/3 MG ONE (19:18)
[2017-12-07 19:30] LABS: BASOPHILS # (AUTO) 0.8 X10^3/uL (0.0-0.1); BASOPHILS % (AUTO) 2.7 % (0.2-1.0); EOSINOPHILS # (AUTO) 0.4 x10^3/uL (0.0-0.2); EOSINOPHILS % (AUTO) 1.5 % (0.9-2.9); HEMATOCRIT 33.5 % (36.0-47.0); HEMOGLOBIN 10.9 g/dL (12.0-16.0); LYMPHOCYTES # (AUTO) 4.3 X10^3/uL (1.3-2.9); LYMPHOCYTES % (AUTO) 14.9 % (21.0-51.0); MEAN CORPUSCULAR HEMOGLOBIN 36.3 pg (27.0-34.0); MEAN CORPUSCULAR HGB CONC 32.7 g/dL (33.0-35.0); MEAN PLATELET VOLUME 9.4 fL (7.4-11.0); MONOCYTES # (AUTO) 1.5 x10^3/uL (0.3-0.8); MONOCYTES % (AUTO) 5.3 % (0.0-13.0); NEUTROPHILS # (AUTO) 21.7 x10^3/uL (2.2-4.8); NEUTROPHILS % (AUTO) 75.6 % (42.0-75.0); PLATELET COUNT 694 X10^3/uL (150.0-450.0); RED BLOOD COUNT 3.02 X10^6/uL (3.5-5.4); WHITE BLOOD COUNT 28.8 X10^3/uL (3.6-10.0)
--- NOTE | 2017-12-07 19:36 | DR.GENAD ---
HPI - PCP Primary Care Physician: DARION - Complaint/Symptoms Chief Complaint Doctors Comments: Patient was in her usual state of health until she suddenly became short of breath just prior ED visit. She was hospitalized last week. Chief Complaint:: O/S OF SHORTNESS OF BREATH ALL OF A SUDDEN. Self Treatment fo Chief Complaint: DUONEB IN ROUTE PER EMS. LASIX BY MOUTH TODAY - Source History Provided: Family Member, EMS - Mode of Arrival Mode of Arrival: EMS - Timing Onset of Chief Complaint: 12/07/17 PMH - PMH Past Medical History: Yes Past Medical History: CHF, Hypertension Past Surgical History: Yes Surgical History: Ortho Surgery - Family History History of Family Medical Conditions: Yes Family Medical History: Diabetes Mellitus, [place], Hypertension - Social History Type of Tobacco Use: None Alcohol Use: None Do you use any recreational Drugs:: No Lives With: Significant Other Lives Where: Home - infectious screening Have you traveled outside the country in the last 6 months?: No Isolation: Standard ROS - Review of Systems Eyes: No Symptoms Reported ENTM: No Symptoms Reported Respiratoy: Moist Cough, Short of Breath Cardiovascular: No Symptoms Reported Gastrointestinal/Abdominal: No Symptoms Reported Genitourinary: No Symptoms Reported Neurological: No Symptoms Reported Musculoskeletal: No Symptoms Reported Integumentary: No Symptoms Reported Hematologic/Lymphatic: No Symptoms Reported Endocrine: No Symptoms Reported Psychiatric: No Symptoms Reported PE - Vital Signs Vitals: Temperature 97.5 F Pulse Rate [Apical] 109 Pulse Rate 119 Respiratory Rate 30 Blood Pressure [Right Arm] 107/51 Blood Pressure [Left Arm] 166/77 Blood Pressure 175/93 O2 Sat by Pulse Oximetry 91 - General Limitations: No Limitations General Appearance: Alert, In Distress - Head Head Exam: Normal Inspection, Atraumatic - Eyes Eye exam: Normal Appearance, PERRL, EOMI - ENT ENT Exam: Normal Exam, Normal Oropharynx External Ear Exam: Normal External Inspection TM/Canal Exam: Bilateral Normal Nose Exam: Normal Nose Exam Mouth Exam: Normal Inspection Throat Exam: Normal Inspection - Neck Neck Exam: Normal Inspection, Full ROM - Chest Chest Inspection: Normal Inspection, Symmetric Chest Wall Rise - Respiratory Respiratory Exam: Normal Lung Sounds Bilat Respiratory Exam: Bilateral Wheezing - Cardiovascular Cardiovascular Exam: Regular Rate, Normal Rhythm - Abdominal Exam Abdominal Exam: Normal Inspection, Normal Bowel Sounds Abdominal Tenderness: negative: RUQ, RLQ, LUQ, LLQ, Epigastrium, Suprapubic, Diffuse, Mild, Moderate, Severe, Other - Extremities Extremities Exam: Normal Inspection, Full ROM - Back Back Exam: Normal Inspection, Full ROM - Neurologic Neurological Exam: Alert, Oriented X3, CN II-XII Intact - Psychiatric Psychiatric Exam: Normal Affect, Normal Mood - Skin Skin Exam: Warm, Dry, Intact Course - Consultation Called: 21:15 (Dr Gavin agreed to admit for further evaluation and treatment) ROR - Labs Reviewed Laboratory Results Reviewed?: Yes (D Dimer 1930, BNP 1130) Result Diagrams: 12/07/17 19:20 12/07/17 19:06 Laboratory: WBC 28.8 X10^3/uL (3.6-10.0) H 12/07/17 19:20 RBC 3.02 X10^6/uL (3.5-5.4) L 12/07/17 19:20 Hgb 10.9 g/dL (12.0-16.0) L 12/07/17 19:20 Hct 33.5 % (36.0-47.0) L 12/07/17 19:20 MCV 111.0 fL (80.0-100.0) H 12/07/17 19:20 MCH 36.3 pg (27.0-34.0) H 12/07/17 19:20 MCHC 32.7 g/dL (33.0-35.0) L 12/07/17 19:20 RDW 17.0 % (11.6-16.5) H 12/07/17 19:20 Plt Count 694 X10^3/uL (150.0-450.0) H 12/07/17 19:20 Plt Count Comment Increased (ADEQUATE) A 12/07/17 19:20 MPV 9.4 fL (7.4-11.0) 12/07/17 19:20 Neut % 75.6 % (42.0-75.0) H 12/07/17 19:20 Lymph % 14.9 % (21.0-51.0) L 12/07/17 19:20 [place] % 5.3 % (0.0-13.0) 12/07/17 19:20 Eos % 1.5 % (0.9-2.9) 12/07/17 19:20 Baso % 2.7 % (0.2-1.0) H 12/07/17 19:20 Neut # 21.7 x10^3/uL (2.2-4.8) H 12/07/17 19:20 Lymph # 4.3 X10^3/uL (1.3-2.9) H 12/07/17 19:20 [place] # 1.5 x10^3/uL (0.3-0.8) H 12/07/17 19:20 Eos # 0.4 x10^3/uL (0.0-0.2) H 12/07/17 19:20 Baso # 0.8 X10^3/uL (0.0-0.1) H 12/07/17 19:20 Absolute Nucleated RBC 0.1 /100WBC 12/07/17 19:20 Total Counted 100 12/07/17 19:20 Neutrophils % (Manual) 70 % (39-76) 12/07/17 19:20 Band Neutrophils % 4 % (0-10) 12/07/17 19:20 Lymphocytes % (Manual) 19 % (13-43) 12/07/17 19:20 Monocytes % (Manual) 5 % (4-9) 12/07/17 19:20 Eosinophils % (Manual) 1 % (0-6) 12/07/17 19:20 Basophils % (Manual) 1 % (0-1) 12/07/17 19:20 Plt Morphology Comment Normal (NORMAL) 12/07/17 19:20 RBC Morphology Abnormal (NORMAL) A 12/07/17 19:20 Macrocytosis 2+ A 12/07/17 19:20 INR Target Range - 12/07/17 19:06 INR 1.18 (0.8-1.3) 12/07/17 19:06 PTT 32.0 SECONDS (22.9-36.5) 12/07/17 19:06 PTT Comment - 12/07/17 19:06 D-Dimer Cancelled 12/07/17 19:20 Sample Site Right radial 12/07/17 19:45 ABG pH 7.270 (7.35-7.45) L 12/07/17 19:45 ABG pCO2 71.0 mmHg (35.0-45.0) H* 12/07/17 19:45 ABG pO2 188.0 mmHg (80.0-100.0) H 12/07/17 19:45 ABG HCO3 32.6 mmol/L (22-26) H* 12/07/17 19:45 ABG O2 Saturation 100.0 % (90-100) 12/07/17 19:45 ABG Base Excess 3.7 mmol/L (-2.0-2.0) H 12/07/17 19:45 [place] Test Pos 12/07/17 19:45 A-a Gradient 436.0 mmHg 12/07/17 19:45 FiO2 100.000 12/07/17 19:45 Blood Gas Comments Nam well jts 12/07/17 19:45 Sodium 133 mmol/L (136-145) L 12/07/17 19:06 Corrected Sodium 135 mmol/L (136-145) L 12/07/17 19:06 Potassium 4.6 mmol/L (3.5-5.1) 12/07/17 19:06 Chloride 98 mmol/L (98-107) 12/07/17 19:06 Carbon Dioxide 29.5 mmol/L (21-32) 12/07/17 19:06 BUN 17 mg/dL (7-18) 12/07/17 19:06 Creatinine 0.91 mg/dL (0.55-1.02) 12/07/17 19:06 Est GFR (MDRD) Af Amer > 60 (>60) 12/07/17 19:06 Est GFR (MDRD) Non-Af > 60 (>60) 12/07/17 19:06 Glucose 192 mg/dL (65-99) H 12/07/17 19:06 Lactic Acid 0.5 mmol/L (0.4-2.0) 12/07/17 20:51 Calcium 8.6 mg/dL (8.5-10.1) 12/07/17 19:06 Corrected Calcium TNP 12/07/17 19:06 Magnesium 2.0 mg/dL (1.7-2.9) 12/07/17 19:06 Total Bilirubin 0.70 mg/dL (0.2-1.0) 12/07/17 19:06 AST 39 Units/L (15-37) H 12/07/17 19:06 ALT 33 Units/L (12-78) 12/07/17 19:06 Alkaline Phosphatase 68 Units/L (46-116) 12/07/17 19:06 Creatine Kinase 30 Units/L (26-192) 12/07/17 19:06 CK-MB (CK-2) < 1.0 ng/mL (0-4.0) 12/07/17 19:06 CK/CKMB % Calc 3.3 % (<4) 12/07/17 19:06 Troponin I 0.08 ng/mL (0-1.5) 12/07/17 19:06 C-Reactive Protein Cancelled 12/07/17 19:20 B-Natriuretic Peptide Cancelled 12/07/17 19:20 Total Protein 6.6 g/dL (6.4-8.2) 12/07/17 19:06 Albumin 3.5 g/dL (3.4-5.0) 12/07/17 19: Globulin 3.1 g/dL (2.5-4.5) 12/07/17 19:06 Albumin/Globulin Ratio 1.1 Ratio (1.1-2.1) 12/07/17 19:06 Specimen Type Catherized urine 12/07/17 21:01 Urine Color Yellow (YELLOW) 12/07/17 21:01 Urine Appearance Hazy (CLEAR) 12/07/17 21: Urine pH 6.5 (5.0 - 8.0) 12/07/17 21:01 Ur Specific [place] 1.015 (1.000-1.030) 12/07/17 21:01 Urine Protein 3+ (NEGATIVE) 12/07/17 21:01 Urine Glucose (UA) Negative (NEGATIVE) 12/07/17 21:01 Urine Ketones Negative (NEGATIVE) 12/07/17 21:01 Urine Occult Blood 3+ (NEGATIVE) 12/07/17 21:01 Urine Nitrite Negative (NEGATIVE) 12/07/17 21: Urine Bilirubin Negative (NEGATIVE) 12/07/17 21: Urine Urobilinogen Normal (NORMAL) 12/07/17 21:01 Ur Leukocyte Esterase Negative (NEGATIVE) 12/07/17 21:01 Urine RBC 0-2 /HPF (NEGATIVE) 12/07/17 21:01 Urine WBC 0-2 /HPF (NEGATIVE) 12/07/17 21:01 Ur Squamous Epith Cells Negative /HPF (NEGATIVE) 12/07/17 21:01 Urine Bacteria Trace /HPF (NEGATIVE) 12/07/17 21:01 Ur Culture Indicated? No/not indicated 12/07/17 21:01 - XRAY XRAY Interpreted by: Radiologist (Chest: There are worsened perihilar interstitial airspace opacities with grossly unchanged bibasilar airspace disease, right greater than left. Cardiac silhouette is unchanged. There are small bilateral pleural effusions. Impression: Worsened perihilar opacities with grossly unchanged bibasilar disease, suggesting pulmonary edema or multifocal pneumonia. Correlation recommended. Small bilateral pleural effusions. CT Angiography of the Chest: No pulmonary embolus is seen. There is no thoracic aortic dissection. Cardiomegaly without pericardial effusioon with atherosclerotic calcification of the coronary vessels. There is no axillary or mediastinal lymphadenopathy. Diffuse ground glass opacities throughout the lungs predominatly in perihilar and lower lobe distribution with small foci of consolidation within the right upper lobe with a larger region of consolidation with air bronchograms in the right lung base with small bilateral effusions and no pneumothorax. The trachea and mainstem bronchi are patent. The arteriovascular structures are within normal limits. Impression: 1.Diffuse ground glass opacities within the mid liungs and lower lobes predominatly, edema , hemorrhage and multifocal infection all within the differential. 2.Small foci of consolidation in the right upper lobe and larger area within the right lower lobe concerning for multifocal multi lobar pneumonia. No pulmonary embolus) - Diagnosis Discharge Problem: Respiratory distress, Multi Lobar Pneumonia Pulmonary edema Qualifiers: Chronicity: acute Qualified Code(s): J81.0 - Acute pulmonary edema - Discharge Plan Condition: Stable - Follow ups/Referrals Follow ups/Referrals: Carlos Gavin [Primary Care Provider] - 3 days - Instructions
--- NOTE | 2017-12-07 19:42 | RAD ---
Chest, AP portable Indication: Respiratory distress Comparison: 12/01/2017 Findings: There are worsened perihilar interstitial airspace opacities with grossly unchanged bibasil ar airspace disease, right greater than left. Cardiac silhouette is unchanged. There are small bilate ral pleural effusions. Impression: Worsened perihilar opacities with grossly unchanged bibasilar disease, suggesting pulmonary edema or multifocal pneumonia. Correlation recommended. Small bilateral pleural effusions. Reported By:
[2017-12-07 19:56] LABS: BLOOD UREA NITROGEN 17 mg/dL (7-18); CALCIUM 8.6 mg/dL (8.5-10.1); CARBON DIOXIDE 29.5 mmol/L (21-32); CHLORIDE 98 mmol/L (98-107); COR NA(FOR HYPERGLY) 135 mmol/L (136-145); CREATININE 0.91 mg/dL (0.55-1.02); SODIUM 133 mmol/L (136-145); TROPONIN I 0.08 ng/mL (0-1.5); eGFR BLACK RACES > 60 (>60); eGFR NON BLACK RACES > 60 (>60)
[2017-12-07 19:59] LABS: ALANINE AMINOTRANSFERASE 33 Units/L (12-78); ALBUMIN 3.5 g/dL (3.4-5.0); ALKALINE PHOSPHATASE 68 Units/L (46-116); ASPARTATE AMINO TRANSFERASE 39 Units/L (15-37); CKMB % 3.3 % (<4); CREATINE KINASE 30 Units/L (26-192); CREATINE KINASE MB < 1.0 ng/mL (0-4.0); TOTAL PROTEIN 6.6 g/dL (6.4-8.2)
[2017-12-07 20:00] LABS: BAND NEUTROPHILS % 4 % (0-10); BASOPHILS % (MANUAL) 1 % (0-1)
[2017-12-07 20:01] LABS: PLATELET MORPHOLOGY COMMENT NORMAL (NORMAL)
[2017-12-07 20:02] LABS: ABG BASE EXCESS 3.7 mmol/L (-2.0-2.0)
[2017-12-07 20:04] LABS: ABG ALLEN TEST POS; ABG HCO3 32.6 mmol/L (22-26)
[2017-12-07 20:12] LABS: B-TYPE NATRIURETIC PEPTIDE 1190 pg/mL (0-79)
[2017-12-07] MEDS ORDERED: LASIX ONE ×2 (20:23→20:57)
[2017-12-07] MEDS ORDERED: LASIX IVP ONE ×2 (20:24→20:55)
[2017-12-07] MEDS ORDERED: NITRO-BID OINT 2% Multi-Dose tube TD ONE (20:56)
[2017-12-07] MEDS ORDERED: NITRO-BID OINT 2% Multi-Dose tube ONE (21:01)
[2017-12-07 21:09] LABS: BILIRUBIN,URINE NEGATIVE (NEGATIVE); BLOOD/HEMOGLOBIN,URINE 3+ (NEGATIVE); GLUCOSE, URINE NEGATIVE (NEGATIVE); KETONES,URINE NEGATIVE (NEGATIVE); LEUKOCYTE ESTERASE ,URINE NEGATIVE (NEGATIVE); NITRITES,URINE NEGATIVE (NEGATIVE); PH,URINE 6.5 (5.0 - 8.0); PROTEIN,URINE 3+ (NEGATIVE); UROBILINOGEN,URINE NORMAL (NORMAL)
[2017-12-07 21:17] LABS: APPEARANCE,URINE HAZY (CLEAR); COLOR,URINE YELLOW (YELLOW)
[2017-12-07 21:18] LABS: BACTERIA,URINE TRACE /HPF (NEGATIVE); RBC,URINE 0-2 /HPF (NEGATIVE); SQUAMOUS EPITHELIAL CELL,UR NEGATIVE /HPF (NEGATIVE)
[2017-12-07] MEDS ORDERED: NS 1/2 1000 ML IV 1,000 ML IV ONE ×2 (21:35→22:47)
[2017-12-07] MEDS ORDERED: ROCEPHIN VIAL 1 GM ONE (21:36)
--- NOTE | 2017-12-07 21:53 | CT ---
CT ANGIOGRAPHY OF THE CHEST CLINICAL HISTORY: 82-year-old female with respiratory distress and elevated D-dimer. COMPARISON: Chest radiograph this date. TECHNIQUE: CT angiogram of the chest was performed following the uncomplicated administration of 100 mL Omnipaque 350 intravenous contrast as per routine pulmonary embolus protocol. Coronal and Sagittal reformats provided. MIP reformats are submitted for review. FINDINGS: No pulmonary embolus is seen. There is no thoracic aortic dissection. Cardiomegaly without pericardial effusion with atherosclerotic calcification of the coronary vessels. There is no axillary or mediastinal lymphadenopathy. Diffuse ground-glass opacities throughout the lungs predominantly in perihilar and lower lobe distrib ution with small foci of consolidation within the right upper lobe with a larger region of consolidat ion with air bronchograms in the right lung base with small bilateral effusions and no pneumothorax. The trachea and mainstem bronchi are patent. Reflux of contrast into the hepatic venous system. Imaged upper abdomen is otherwise unremarkable. The arteriovascular structures are within normal limits. Soft tissues are normal. The osseous structures are intact without fracture or malalignment. IMPRESSION: 1. Diffuse ground-glass opacities within the mid lungs and lower lobes predominantly, edema, hemorrha ge and multifocal infection all within the differential. 2. Small foci of consolidation in the right upper lobe and the larger area within the right lower lob e concerning for multifocal multi lobar pneumonia. 3. No pulmonary embolus. Reported By:
[2017-12-07] MEDS ORDERED: VIBRAMYCIN 100 MG in NS 100 ML IV + SPIKE MINIBAG* 100 ML IV SCH (23:00)
[2017-12-07] MEDS ORDERED: NS 1/2 1000 ML IV 1,000 ML IV SCH (23:00)
[2017-12-07 23:40] LABS: ABG ALLEN TEST POS
[2017-12-07] MEDS ORDERED: ROCEPHIN VIAL 1 GM 1 GM in NS 100 ML IV + SPIKE MINIBAG* 100 ML IV SCH (23:45)
[2017-12-08] MEDS ORDERED: ROCEPHIN VIAL 1 GM ONE (00:01)
[2017-12-08] MEDS: NS 1/2 1000 ML IV 1,000 ML IV SCH (00:05)
[2017-12-08] MEDS ORDERED: DUONEB 0.5 MG/3 MG ONE (01:13)
[2017-12-08 01:20] LABS: CKMB % 5.9 % (<4); CREATINE KINASE MB 1.7 ng/mL (0-4.0); TROPONIN I 0.38 ng/mL (0-1.5)
[2017-12-08 01:31] VITALS: BMI 20.7
[2017-12-08] MEDS: DUONEB 0.5 MG/3 MG NEB SCH ×6 (01:33→21:35)
[2017-12-08] MEDS ORDERED: SALINE 3% 15 ML NEB TX NEB ONE (02:30)
[2017-12-08 04:48] LABS: ABG BASE EXCESS 7.4 mmol/L (-2.0-2.0)
[2017-12-08 05:28] LABS: FRACTIONATED INSPIRED OXYGEN 35
[2017-12-08 08:06] LABS: BASOPHILS # (AUTO) 0.2 X10^3/uL (0.0-0.1); BASOPHILS % (AUTO) 1.1 % (0.2-1.0); EOSINOPHILS % (AUTO) 0.1 % (0.9-2.9); HEMATOCRIT 28.7 % (36.0-47.0); HEMOGLOBIN 9.6 g/dL (12.0-16.0); LYMPHOCYTES % (AUTO) 5.7 % (21.0-51.0); MEAN CORPUSCULAR HEMOGLOBIN 36.5 pg (27.0-34.0); MEAN CORPUSCULAR HGB CONC 33.3 g/dL (33.0-35.0); MEAN CORPUSCULAR VOLUME 109.6 fL (80.0-100.0); MEAN PLATELET VOLUME 9.2 fL (7.4-11.0); MONOCYTES % (AUTO) 5.7 % (0.0-13.0); NEUTROPHILS # (AUTO) 15.1 x10^3/uL (2.2-4.8); NEUTROPHILS % (AUTO) 87.4 % (42.0-75.0); PLATELET COUNT 429 X10^3/uL (150.0-450.0); RED BLOOD COUNT 2.62 X10^6/uL (3.5-5.4); RED CELL DISTRIBUTION WIDTH 16.3 % (11.6-16.5); WHITE BLOOD COUNT 17.3 X10^3/uL (3.6-10.0)
[2017-12-08 08:14] LABS: ALANINE AMINOTRANSFERASE 29 Units/L (12-78); ALBUMIN 3.1 g/dL (3.4-5.0); ALKALINE PHOSPHATASE 41 Units/L (46-116); ASPARTATE AMINO TRANSFERASE 26 Units/L (15-37); BLOOD UREA NITROGEN 19 mg/dL (7-18); CALCIUM 8.8 mg/dL (8.5-10.1); CARBON DIOXIDE 29.3 mmol/L (21-32); CHLORIDE 98 mmol/L (98-107); COR CA(FOR HYPOALB) 9.5 mg/dL (8.5-10.1); CREATININE 0.96 mg/dL (0.55-1.02); SODIUM 134 mmol/L (136-145); eGFR BLACK RACES > 60 (>60); eGFR NON BLACK RACES 59 (>60)
[2017-12-08 08:24] LABS: CKMB % 4.6 % (<4); CREATINE KINASE MB 1.1 ng/mL (0-4.0); TROPONIN I 0.22 ng/mL (0-1.5)
[2017-12-08 08:41] LABS: BAND NEUTROPHILS % 27 % (0-10)
[2017-12-08] MEDS: ROBITUSSIN DM PO SCH ×4 (10:17→22:01)
[2017-12-08] MEDS: LEVAQUIN PREMIX IV 750 MG 750 MG/150 ML BAG IV SCH (10:17)
[2017-12-08] MEDS: TAMIFLU PO SCH ×3 (10:17→20:33)
[2017-12-08] MEDS: LASIX PO SCH ×2 (10:18→20:36)
[2017-12-08] MEDS: EVISTA PO SCH (10:18)
[2017-12-08] MEDS: MEGACE PO SCH ×2 (10:18→20:35)
[2017-12-08] MEDS: ECOTRIN TAB 325 MG PO SCH ×2 (10:18→20:35)
[2017-12-08] MEDS: HEMOCYTE-PLUS PO SCH (10:18)
[2017-12-08] MEDS: SYNTHROID 75 mcg TAB PO SCH (10:18)
[2017-12-08] MEDS: TAB-A-VITE PO SCH (10:20)
--- NOTE | 2017-12-08 10:28 | DR.H&P ---
H&P - History & Physical for Day of: H&P Date: 12/07/17 - Chief Complaint Chief Complaint: short of breath - Allergies Allergies/Adverse Reactions: Allergies Allergy/AdvReac Type Severity Reaction Status Date / Time No Known Drug Allergies Allergy Verified 12/07/17 22:54 - History of Present Illness History of Present Illness: is a 82 year old patient of ours who presented to the emergency room via EMS with complaints of sudden onset of shortness of breath. Patient has a known history of CHF. They report compliance with PO Lasix. Associated symptoms are shortness of breath. EMS administered a breathing treatment on arrival to the emergency room with no improvement in symptoms noted. Patient was recently discharged from the intensive care unit for hyponatremia, altered mental status, and CHF. She was seen in our office on Monday, where she was noted with improvement and no distress compared to when we discharged her from the hospital. Other pertinent medical history includes: CHF, cardiac arrhythmia, hypertension, pneumonia, urinary tract infections, arthritis, hypothyroidism, and Polycythemia Vera. On examination, she is noted to be in respiratory distress with shallow, labored breathing noted. Heart rate is rapid, regular. Bilateral lungs are noted with course wheezing and rhonchi throughout. Abdomen is flat, soft, and non-tender with normal bowel sounds noted in all quadrants. Bilateral lower extremities are noted to be without edema. There is normal range of motion noted to all extremities. On arrival, her vitals were 97.5, 119, 36, 98%RA, 175/93. Labs were obtained. Abnormal Labs include the following: WBC 28.8, RBC 3.02, Hgb 10.9 , Hct 33.5, MCV 111.0, MCH 36.3, MCHC 32.7, RDW 17.0, Plt Count 694, Plt Count Comment Increased A, Ddimer 1930, Sodium 133, Corrected Sodium 135, Glucose 192 , AST 39, CRP 34.30, BNP 1190. Urinalysis: Guerita Hazy, Protein 3+, Occult Blood 3+ , RBC 0-2, WBC 0-2, Bacteria Trace. Sputum cultures and blood cultures are pending. ABG(1944) PH 7.270, PCO2 71.0, PO2 188.0, HCO3 32.6, Base Excess 3.7, FIO2 100.0. EKG reported: Sinus tachycardia. Heart qmgx=777. Chest xray reported : Worsened perhilar opacities with grossly unchanged bibasilar disease, suggesting pulmonary edema or multifocal pneumonia. Correlation recommended. Small bilateral pleural effusions. Chest CTA reported: Diffuse ground glass opacities within the mid lungs and lower lobes predominantly, edema, hemorrhage and multifocal infection all within the differential. Small foci of consolidation in the right upper lobe and the larger area within the right lower lobe concerning for multifocal multi lobar pneumonia. No pulmonary embolus. She was placed on the BIPAP on S/T mode. Settings are 15/5 with a rate of 20. We admitted patient to the intensive care unit for further treatment and evaluation. She was started on the pneumonia protocol. We plan to follow up with AM labs and chest xray and continue to monitor patient. - Past Medical History Past Medical History: Arthritis, CHF, Hypertension, Hypothyroidism Additional Medical History: polycythemia vera - Past Surgical History Surgical History: Ortho Surgery - Family History Family Medical History: Diabetes Mellitus, [place], Hypertension - Social History Does patient currently use any type of tobacco product: No Have you used tobacco products in the last 12 months: No Type of Tobacco Use: None Alcohol Use: None Drug Use: None - Review of Systems Constitutional: Weakness. denies: No Symptoms Reported, See HPI, Fever, Chills , Sweats, Malaise, Other Eyes: No Symptoms Reported. denies: See HPI, Pain, Vision Change, Conjunctivae Inflammation, Eyelid Inflammation, Redness, Other ENT: No Symptoms Reported. denies: See HPI, Ear Pain, Ear Discharge, Nose Pain , Nose Discharge, Nose Congestion, Mouth Pain, Mouth Swelling, Throat Pain, Throat Swelling, Other Respiratory: Cough, Shortness of Breath, SOB with Excertion, Sputum Cardiovascular: No Symptoms Reported. denies: Chest Pain, See HPI, Palpitations , Orthopnea, Paroxysmal Noc. Dyspnea, Edema, Light Headedness, Other Gastrointestinal: No Symptoms Reported. denies: See HPI, Nausea, Vomiting, Abdominal Pain, Diarrhea, Constipation, Melena, Hematochezia, Other Genitourinary: No Symptoms Reported. denies: See HPI, Dysuria, Frequency, Incontinence, Hematuria, Retention, Other Musculoskeletal: No Symptoms Reported. denies: See HPI, Shoulder Pain, Arm Pain , Back Pain, Hand Pain, Leg Pain, Foot Pain, Neck Pain, Other Skin: No Symptoms Reported. denies: See HPI, Rash, Lesions, Jaundice, Bruising , Wound, Ecchymosis, Other Neurological: Weakness - Physical Exam Vital Signs: Temperature 97.8 F Pulse Rate [Apical] 80 Pulse Rate 94 Respiratory Rate 28 Blood Pressure [Right Arm] 107/51 Blood Pressure [Left Arm] 93/53 Blood Pressure 175/93 O2 Sat by Pulse Oximetry 100 Oriented: Normal. negative: Time, Person, Place, Not Oriented, Unable to test, Other Eyes: Normal. negative: Blurred Vision, Diplopia, Discharge, Pain, Redness, Photophobia, Other Ear: Normal. negative: Right, Left, Swelling, Ecchymosis, Hemotypanum, Abrasion , Laceration Nose: Normal. negative: Injected, Discharge, Blood, Other Throat: Normal. negative: Tonsillar Hypertrophy, Red, Exudate, Dry, Other Respiratory: Rhonchi Throughout, Wheezes Throughout Cardiovascular: Tachycardia. negative: S3, S4, Murmur : Normal. negative: Dysuria, Hematuria, Frequency, Discharge, Testicular Pain , Bleeding, , Other Auscultation: Bowel Sounds: Normal. negative: Bruit, Absent, Increased, Decreased, High Pitched, Other Palpation: Normal. negative: Spleen Enlarged, Liver Enlarged, Mass Pulsatile, Other Tenderness: Normal. negative: Rebound, Guarding, Rigidity Skin: Normal Musculoskeletal: Normal Psychiatric: Normal. negative: Anxiety, Depression, Agitation, Other Mood Description: Calm Affect: Normal Speech Pattern: Clear - Assessment/Plan (1) Multifocal pneumonia Status: Acute Plan: pneumonia protocol, rocephin 1gm iv daily, respiratory tx, bipap, continue to monitor (2) Respiratory distress Status: Acute Plan: bipap/supplemental oxygen, respiratory tx, monitor abg, labs, and chest xray
[2017-12-08] MEDS: FORTAZ or TAZICEF INJ 1 GM in NS 100 ML IV + SPIKE MINIBAG* 100 ML IV SCH ×3 (11:15→21:28)
[2017-12-08] MEDS: ZOCOR TAB 10 MG PO SCH (20:36)
[2017-12-08] MEDS: TUSSIONEX PENNKINETIC SUSP PO PRN (20:36)
[2017-12-08] MEDS ORDERED: NS 1/2 1000 ML IV 1,000 ML IV ONE (22:35)
[2017-12-08] MEDS: RESTORIL CAP 15 MG PO PRN (22:40)
[2017-12-09] MEDS: NS 1/2 1000 ML IV 1,000 ML IV SCH (00:34)
[2017-12-09] MEDS: DUONEB 0.5 MG/3 MG NEB SCH ×3 (01:51→09:29)
[2017-12-09] MEDS: FORTAZ or TAZICEF INJ 1 GM in NS 100 ML IV + SPIKE MINIBAG* 100 ML IV SCH ×3 (05:31→21:13)
[2017-12-09 06:14] LABS: BASOPHILS # (AUTO) 0.1 X10^3/uL (0.0-0.1); BASOPHILS % (AUTO) 0.7 % (0.2-1.0); EOSINOPHILS # (AUTO) 0.1 x10^3/uL (0.0-0.2); EOSINOPHILS % (AUTO) 0.9 % (0.9-2.9); HEMATOCRIT 27.1 % (36.0-47.0); HEMOGLOBIN 9.2 g/dL (12.0-16.0); LYMPHOCYTES # (AUTO) 1.5 X10^3/uL (1.3-2.9); LYMPHOCYTES % (AUTO) 11.3 % (21.0-51.0); MEAN CORPUSCULAR HEMOGLOBIN 36.9 pg (27.0-34.0); MEAN CORPUSCULAR HGB CONC 33.9 g/dL (33.0-35.0); MEAN CORPUSCULAR VOLUME 108.8 fL (80.0-100.0); MEAN PLATELET VOLUME 9.1 fL (7.4-11.0); MONOCYTES # (AUTO) 0.7 x10^3/uL (0.3-0.8); MONOCYTES % (AUTO) 5.4 % (0.0-13.0); NEUTROPHILS % (AUTO) 81.7 % (42.0-75.0); PLATELET COUNT 411 X10^3/uL (150.0-450.0); RED BLOOD COUNT 2.49 X10^6/uL (3.5-5.4); RED CELL DISTRIBUTION WIDTH 16.7 % (11.6-16.5); WHITE BLOOD COUNT 13.5 X10^3/uL (3.6-10.0)
[2017-12-09 06:23] LABS: ALANINE AMINOTRANSFERASE 24 Units/L (12-78); ALKALINE PHOSPHATASE 38 Units/L (46-116); ASPARTATE AMINO TRANSFERASE 22 Units/L (15-37); BLOOD UREA NITROGEN 17 mg/dL (7-18); CALCIUM 8.6 mg/dL (8.5-10.1); CARBON DIOXIDE 32.3 mmol/L (21-32); CHLORIDE 96 mmol/L (98-107); COR CA(FOR HYPOALB) 9.4 mg/dL (8.5-10.1); COR NA(FOR HYPERGLY) 136 mmol/L (136-145); CREATININE 1.06 mg/dL (0.55-1.02); SODIUM 135 mmol/L (136-145); TOTAL PROTEIN 5.9 g/dL (6.4-8.2); eGFR BLACK RACES > 60 (>60); eGFR NON BLACK RACES 53 (>60)
[2017-12-09 06:34] LABS: PLATELET MORPHOLOGY COMMENT NORMAL (NORMAL)
[2017-12-09 06:35] LABS: POIKILOCYTOSIS SLIGHT
--- NOTE | 2017-12-09 07:39 | RAD ---
Examination: Portable AP upright chest History: Pneumonia Comparison 12/07/2017 Findings: Stable heart size. Marked improvement in aeration of the lungs with decreasing infiltrates/ edema. Persistent perihilar airspace disease is still present, right greater than left. No pneumothor ax or developing pleural effusion. Impression: Significant improvement since 12/07/2017. The rapid interval change is more consistent wi th pulmonary edema than pneumonia. Reported By:
[2017-12-09] MEDS: LEVAQUIN PREMIX IV 750 MG 750 MG/150 ML BAG IV SCH (09:31)
[2017-12-09] MEDS: ROBITUSSIN DM PO SCH ×4 (09:32→21:12)
[2017-12-09] MEDS: HEMOCYTE-PLUS PO SCH (09:33)
[2017-12-09] MEDS: EVISTA PO SCH (09:33)
[2017-12-09] MEDS: SYNTHROID 75 mcg TAB PO SCH (09:33)
[2017-12-09] MEDS: TAMIFLU PO SCH ×2 (09:33→21:12)
[2017-12-09] MEDS: ECOTRIN TAB 325 MG PO SCH ×2 (09:33→21:11)
[2017-12-09] MEDS: LASIX PO SCH ×2 (09:33→21:11)
[2017-12-09] MEDS: TAB-A-VITE PO SCH (09:33)
[2017-12-09] MEDS: MEGACE PO SCH ×2 (09:33→21:11)
[2017-12-09] MEDS: XOPENEX 1.25 MG/3 ML NEBULE NEB SCH ×4 (13:51→21:28)
[2017-12-09] MEDS: ALTACE CAP 10 MG PO SCH ×2 (14:13→21:11)
[2017-12-09] MEDS: COREG TAB 6.25 MG PO SCH ×2 (14:13→21:11)
[2017-12-09] MEDS: ZOCOR TAB 10 MG PO SCH (21:11)
[2017-12-09] MEDS: TUSSIONEX PENNKINETIC SUSP PO PRN (21:12)
[2017-12-09] MEDS: RESTORIL CAP 15 MG PO PRN (21:12)
[2017-12-10] MEDS: NS 1/2 1000 ML IV 1,000 ML IV SCH (01:38)
[2017-12-10] MEDS: FORTAZ or TAZICEF INJ 1 GM in NS 100 ML IV + SPIKE MINIBAG* 100 ML IV SCH ×3 (05:24→21:32)
[2017-12-10 06:15] LABS: BASOPHILS # (AUTO) 0.1 X10^3/uL (0.0-0.1); BASOPHILS % (AUTO) 0.8 % (0.2-1.0); EOSINOPHILS # (AUTO) 0.2 x10^3/uL (0.0-0.2); EOSINOPHILS % (AUTO) 1.7 % (0.9-2.9); HEMATOCRIT 27.2 % (36.0-47.0); HEMOGLOBIN 9.1 g/dL (12.0-16.0); LYMPHOCYTES # (AUTO) 1.5 X10^3/uL (1.3-2.9); LYMPHOCYTES % (AUTO) 11.2 % (21.0-51.0); MEAN CORPUSCULAR HEMOGLOBIN 36.7 pg (27.0-34.0); MEAN CORPUSCULAR HGB CONC 33.6 g/dL (33.0-35.0); MEAN CORPUSCULAR VOLUME 109.4 fL (80.0-100.0); MEAN PLATELET VOLUME 8.9 fL (7.4-11.0); MONOCYTES # (AUTO) 0.9 x10^3/uL (0.3-0.8); MONOCYTES % (AUTO) 6.6 % (0.0-13.0); NEUTROPHILS % (AUTO) 79.7 % (42.0-75.0); PLATELET COUNT 425 X10^3/uL (150.0-450.0); RED BLOOD COUNT 2.48 X10^6/uL (3.5-5.4); RED CELL DISTRIBUTION WIDTH 16.7 % (11.6-16.5); WHITE BLOOD COUNT 13.7 X10^3/uL (3.6-10.0)
[2017-12-10 06:30] LABS: ALANINE AMINOTRANSFERASE 18 Units/L (12-78); ALBUMIN 2.8 g/dL (3.4-5.0); ALKALINE PHOSPHATASE 40 Units/L (46-116); ASPARTATE AMINO TRANSFERASE 18 Units/L (15-37); BLOOD UREA NITROGEN 12 mg/dL (7-18); CALCIUM 8.4 mg/dL (8.5-10.1); CARBON DIOXIDE 30.5 mmol/L (21-32); CHLORIDE 98 mmol/L (98-107); COR CA(FOR HYPOALB) 9.4 mg/dL (8.5-10.1); CREATININE 0.94 mg/dL (0.55-1.02); SODIUM 137 mmol/L (136-145); TOTAL PROTEIN 5.7 g/dL (6.4-8.2); eGFR BLACK RACES > 60 (>60); eGFR NON BLACK RACES > 60 (>60)
[2017-12-10 07:24] LABS: BAND NEUTROPHILS % 1 % (0-10)
[2017-12-10 07:25] LABS: GIANT PLATELET FEW; PLATELET MORPHOLOGY COMMENT NORMAL (NORMAL)
--- NOTE | 2017-12-10 07:56 | RAD ---
Examination: Portable AP upright chest History: Pneumonia Comparison 12/09/2017 Findings: Stable heart size with slight additional improvement in pulmonary aeration with decreasing infiltrates/edema. There is persistent parenchymal density still present in the right lower lung. No new abnormality identified. Impression: Slight additional interval improvement with no new abnormality identified since 1 day ear lier. Reported By:
[2017-12-10] MEDS: TAMIFLU PO SCH ×2 (09:38→21:34)
[2017-12-10] MEDS: XOPENEX 1.25 MG/3 ML NEBULE NEB SCH ×4 (09:41→20:42)
[2017-12-10] MEDS: COREG TAB 6.25 MG PO SCH ×2 (09:44→21:34)
[2017-12-10] MEDS: ALTACE CAP 10 MG PO SCH ×2 (09:44→21:35)
[2017-12-10] MEDS: LASIX PO SCH ×2 (09:45→21:33)
[2017-12-10] MEDS: TAB-A-VITE PO SCH (09:45)
[2017-12-10] MEDS: HEMOCYTE-PLUS PO SCH (09:45)
[2017-12-10] MEDS: ECOTRIN TAB 325 MG PO SCH ×2 (09:45→21:33)
[2017-12-10] MEDS: SYNTHROID 75 mcg TAB PO SCH (09:45)
[2017-12-10] MEDS: ROBITUSSIN DM PO SCH ×4 (09:45→21:33)
[2017-12-10] MEDS: LEVAQUIN PREMIX IV 750 MG 750 MG/150 ML BAG IV SCH (09:45)
[2017-12-10] MEDS: MEGACE PO SCH ×2 (09:45→21:34)
[2017-12-10] MEDS: EVISTA PO SCH (09:45)
--- NOTE | 2017-12-10 19:21 | PCM.PROG ---
Progress Note - Progress Note for Day of Date: 12/08/17 - Subjective Subjective: WAS ADMITTED FOR MULTI LOBAR PNEUMONIA AND CONGESTIVE HEART FAILURE. TODAY, SHE IS ALERT AND ORIENTED, LYING IN BED ON MORNING ROUNDS. PATIENTS FAMILY IS AT BEDSIDE. SHE IS CURRENTLY UTILIZING THE BIPAP. TODAY, SHE CONTINUES WITH COMPLAINTS OF SHORTNESS OF BREATH AND WEAKNESS. PATIENTS REPORTED THAT SHE HAD A RESTLESS NIGHT AND CONTINUED WITH LABORED BREATHING THROUGHOUT THE NIGHT. 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 HEART IS REGULAR IN RATE AND RHYTHM. BILATERAL LUNGS CONTINUE WITH SCATTERED WHEEZING AND RHONCHI THROUGHOUT. ABDOMEN IS FLAT, SOFT, AND NON-TENDER WITH NORMAL BOWEL SOUNDS NOTED IN ALL QUADRANTS. BILATERAL LOWER EXTREMITIES ARE NOTED WITH TRACE EDEMA. HER VITALS THIS MORNING ARE 97.2- 78-20-100%-99/48. LABS WERE OBTAINED THIS MORNING. ABNORMAL LAB VALUES INCLUDE THE FOLLOWING: WBC 17.3, RBC 2.62, HGB 9.6, HCT 28.7, SODIUM 134, BUN 19, ALK PHOS 41, TOTAL PROTEIN 6.1, ALBUMIN 3.1. CARDIAC ENZYMES HAVE BEEN WITHIN NORMAL LIMITS. SPUTUM CULTURES AND BLOOD CULTURES ARE PENDING. MOST RECENT EKG REPORTS NORMAL SINUS RHYTHM WITH HR 84. TODAY, WE PLAN TO DISCONTINUE ROCEPHIN. WE WILL START FORTAZ 1GM IV Q8H, LEVAQUIN 750MG IV DAILY, AND TAMIFLU 75MG PO BID. WE PLAN TO FOLLOW UP WITH AM LABS AND CONTINUE TO MONITOR PATIENT. - Past Medical Family Social History Past Med/Fam/Surg Hx: No changes since H&P Allergies: Allergies No Known Drug Allergies Allergy (Verified 12/07/17 22:54) - Review of Systems ROS: No change since H&P - Vital Signs and I&O's Vital Signs: Temperature 98.6 F Pulse Rate [Apical] 81 Pulse Rate 92 Respiratory Rate 18 Blood Pressure [Right Arm] 107/51 Blood Pressure [Left Arm] 114/70 Blood Pressure 175/93 O2 Sat by Pulse Oximetry 99 Intake and Output: Intake & Output 12/08/17 12/09/17 12/10/17 12/11/17 11:59 11:59 11:59 11:59 Intake Total 190 1862 3329 1460 Output Total 300 2100 4550 1000 Balance -110 238 -1221 460 - Physical Exam Oriented: Normal. negative: Time, Person, Place, Not Oriented, Unable to test, Other Eyes: Normal. negative: Blurred Vision, Diplopia, Discharge, Pain, Redness, Photophobia, Other Ear: Normal. negative: Right, Left, Swelling, Ecchymosis, Hemotypanum, Abrasion , Laceration Nose: Normal. negative: Injected, Discharge, Blood, Other Throat: Normal. negative: Tonsillar Hypertrophy, Red, Exudate, Dry, Other Respiratory: Right, Left, Generalized, Wheezes, Rhonchi Cardiovascular: Normal, Edema (BIALTERAL LOWER EXTREMITY TRACE EDEMA). negative : S3, S4, Murmur : Normal. negative: Dysuria, Hematuria, Frequency, Discharge, Testicular Pain , Bleeding, , Other Auscultation: Bowel Sounds: Normal. negative: Bruit, Absent, Increased, Decreased, High Pitched, Other Palpation: Normal Tenderness: Normal. negative: Rebound, Guarding, Rigidity Skin: Normal Musculoskeletal: Normal Psychiatric: Normal. negative: Anxiety, Depression, Agitation, Other Mood Description: Calm Affect: Normal Speech Pattern: Clear, Appropriate - Laboratory and Diagnostics Result Diagrams: 12/10/17 05:41 12/10/17 05:41 Labs: 12/08/17 06:17 Sputum - Expectorated Sputum Sputum Culture - Final 12/08/17 06:17 Sputum - Expectorated Sputum - Final 12/07/17 19:33 Blood Blood Culture - Preliminary 12/07/17 19:41 Blood Blood Culture - Preliminary Laboratory WBC 13.7 X10^3/uL (3.6-10.0) H 12/10/17 05:41 RBC 2.48 X10^6/uL (3.5-5.4) L 12/10/17 05:41 Hgb 9.1 g/dL (12.0-16.0) L 12/10/17 05:41 Hct 27.2 % (36.0-47.0) L 12/10/17 05:41 MCV 109.4 fL (80.0-100.0) H 12/10/17 05:41 MCH 36.7 pg (27.0-34.0) H 12/10/17 05:41 MCHC 33.6 g/dL (33.0-35.0) 12/10/17 05:41 RDW 16.7 % (11.6-16.5) H 12/10/17 05:41 Plt Count 425 X10^3/uL (150.0-450.0) 12/10/17 05:41 Plt Count Comment Increased (ADEQUATE) A 12/10/17 05:41 MPV 8.9 fL (7.4-11.0) 12/10/17 05:41 Neut % 79.7 % (42.0-75.0) H 12/10/17 05:41 Lymph % 11.2 % (21.0-51.0) L 12/10/17 05:41 [place] % 6.6 % (0.0-13.0) 12/10/17 05:41 Eos % 1.7 % (0.9-2.9) 12/10/17 05:41 Baso % 0.8 % (0.2-1.0) 12/10/17 05:41 Neut # 11.0 x10^3/uL (2.2-4.8) H 12/10/17 05:41 Lymph # 1.5 X10^3/uL (1.3-2.9) 12/10/17 05:41 [place] # 0.9 x10^3/uL (0.3-0.8) H 12/10/17 05:41 Eos # 0.2 x10^3/uL (0.0-0.2) 12/10/17 05:41 Baso # 0.1 X10^3/uL (0.0-0.1) 12/10/17 05:41 Absolute Nucleated RBC 0.1 /100WBC 12/10/17 05:41 Total Counted 100 12/10/17 05:41 Neutrophils % (Manual) 75 % (39-76) 12/10/17 05:41 Band Neutrophils % 1 % (0-10) 12/10/17 05:41 Lymphocytes % (Manual) 15 % (13-43) 12/10/17 05:41 Monocytes % (Manual) 6 % (4-9) 12/10/17 05:41 Eosinophils % (Manual) 3 % (0-6) 12/10/17 05:41 Basophils % (Manual) 1 % (0-1) 12/07/17 19:20 Atypical Lymphocytes 2 12/08/17 07:45 Giant Platelets Few 12/10/17 05:41 Plt Morphology Comment Normal (NORMAL) 12/10/17 05:41 RBC Morphology Normal (NORMAL) 12/10/17 05:41 Poikilocytosis Slight A 12/09/17 05:55 Macrocytosis Slight A 12/09/17 05:55 INR Target Range - 12/07/17 19:06 INR 1.18 (0.8-1.3) 12/07/17 19:06 PTT 32.0 SECONDS (22.9-36.5) 12/07/17 19:06 PTT Comment - 12/07/17 19:06 D-Dimer Cancelled 12/07/17 19:20 Sample Site Rrad 12/07/17 22:50 ABG pH 7.470 (7.35-7.45) H 12/07/17 22:50 ABG pCO2 44.0 mmHg (35.0-45.0) 12/07/17 22:50 ABG pO2 100.0 mmHg (80.0-100.0) 12/07/17 22:50 ABG HCO3 32.0 mmol/L (22-26) H* 12/07/17 22:50 ABG O2 Saturation 98.0 % (90-100) 12/07/17 22:50 ABG Base Excess 7.4 mmol/L (-2.0-2.0) H 12/07/17 22:50 [place] Test Pos 12/07/17 22:50 A-a Gradient 95.0 mmHg 12/07/17 22:50 FiO2 35 12/07/17 22:50 Blood Gas Comments Nam abg well 12/07/17 22:50 Sodium 137 mmol/L (136-145) 12/10/17 05:41 Corrected Sodium TNP 12/10/17 05:41 Potassium 3.5 mmol/L (3.5-5.1) 12/10/17 05:41 Chloride 98 mmol/L (98-107) 12/10/17 05:41 Carbon Dioxide 30.5 mmol/L (21-32) 12/10/17 05:41 BUN 12 mg/dL (7-18) 12/10/17 05:41 Creatinine 0.94 mg/dL (0.55-1.02) 12/10/17 05:41 Est GFR (MDRD) Af Amer > 60 (>60) 12/10/17 05:41 Est GFR (MDRD) Non-Af > 60 (>60) 12/10/17 05:41 Glucose 82 mg/dL (65-99) 12/10/17 05:41 Lactic Acid 0.5 mmol/L (0.4-2.0) 12/07/17 20:51 Calcium 8.4 mg/dL (8.5-10.1) L 12/10/17 05:41 Corrected Calcium 9.4 mg/dL (8.5-10.1) 12/10/17 05:41 Magnesium 2.0 mg/dL (1.7-2.9) 12/07/17 19:06 Total Bilirubin 0.60 mg/dL (0.2-1.0) 12/10/17 05:41 AST 18 Units/L (15-37) 12/10/17 05:41 ALT 18 Units/L (12-78) 12/10/17 05:41 Alkaline Phosphatase 40 Units/L (46-116) L 12/10/17 05:41 Creatine Kinase 24 Units/L (26-192) L 12/08/17 07:45 CK-MB (CK-2) 1.1 ng/mL (0-4.0) 12/08/17 07:45 CK/CKMB % Calc 4.6 % (<4) 12/08/17 07:45 Troponin I 0.22 ng/mL (0-1.5) 12/08/17 07:45 C-Reactive Protein Cancelled 12/07/17 19:20 B-Natriuretic Peptide Cancelled 12/07/17 19:20 Total Protein 5.7 g/dL (6.4-8.2) L 12/10/17 05:41 Albumin 2.8 g/dL (3.4-5.0) L 12/10/17 05:41 Globulin 2.9 g/dL (2.5-4.5) 12/10/17 05:41 Albumin/Globulin Ratio 1.0 Ratio (1.1-2.1) L 12/10/17 05:41 Specimen Type Catherized urine 12/07/17 21:01 Urine Color Yellow (YELLOW) 12/07/17 21:01 Urine Appearance Hazy (CLEAR) 12/07/17 21:01 Urine pH 6.5 (5.0 - 8.0) 12/07/17 21:01 Ur Specific [place] 1.015 (1.000-1.030) 12/07/17 21:01 Urine Protein 3+ (NEGATIVE) 12/07/17 21:01 Urine Glucose (UA) Negative (NEGATIVE) 12/07/17 21:01 Urine Ketones Negative (NEGATIVE) 12/07/17 21:01 Urine Occult Blood 3+ (NEGATIVE) 12/07/17 21:01 Urine Nitrite Negative (NEGATIVE) 12/07/17 21:01 Urine Bilirubin Negative (NEGATIVE) 12/07/17 21:01 Urine Urobilinogen Normal (NORMAL) 12/07/17 21:01 Ur Leukocyte Esterase Negative (NEGATIVE) 12/07/17 21:01 Urine RBC 0-2 /HPF (NEGATIVE) 12/07/17 21:01 Urine WBC 0-2 /HPF (NEGATIVE) 12/07/17 21:01 Ur Squamous Epith Cells Negative /HPF (NEGATIVE) 12/07/17 21:01 Urine Bacteria Trace /HPF (NEGATIVE) 12/07/17 21:01 Ur Culture Indicated? No/not indicated 12/07/17 21:01 - Plan (1) Multifocal pneumonia Status: Acute Plan: pneumonia protocol, levaquin 750mg iv daily, fortaz 1gm iv q8h, respiratory tx, bipap, continue to monitor (2) Respiratory distress Status: Acute Plan: bipap/supplemental oxygen, respiratory tx, monitor abg, labs, and chest xray (3) Influenza Status: Acute Plan: tamiflu 75mg po bid, continue to monitor (4) Congestive heart failure Status: Acute Qualifiers: Congestive heart failure type: unspecified Congestive heart failure chronicity: acute on chronic Qualified Code(s): I50.9 - Heart failure, unspecified Plan: continue lasix 40mg po bid, continue to monitor
[2017-12-10] MEDS ORDERED: MILK OF MAGNESIA PO PRN (20:30)
[2017-12-10] MEDS: ZOCOR TAB 10 MG PO SCH (21:34)
[2017-12-10] MEDS: RESTORIL CAP 15 MG PO PRN (21:34)
--- NOTE | 2017-12-10 23:24 | PCM.PROG ---
Progress Note - Progress Note for Day of Date: 12/09/17 - Subjective Subjective: WAS ADMITTED FOR MULTI LOBAR PNEUMONIA AND CONGESTIVE HEART FAILURE. TODAY, SHE IS ALERT AND ORIENTED, LYING IN BED ON MORNING ROUNDS. PATIENTS SPOUSE IS AT BEDSIDE. TODAY, SHE CONTINUES WITH GENERALIZED WEAKNESS AND SHORTNESS OF BREATH. SHE REPORTS THAT SYMPTOMS HAVE SLIGHTLY IMPROVED SINCE YESTERDAY. ON EXAMINATION, HEART IS REGULAR IN RATE AND RHYTHM. BILATERAL LUNGS CONTINUE WITH SCATTERED WHEEZING AND RHONCHI THROUGHOUT. ABDOMEN IS FLAT, SOFT, AND NON-TENDER WITH NORMAL BOWEL SOUNDS NOTED IN ALL QUADRANTS. BILATERAL LOWER EXTREMITIES CONTINUE WITH TRACE EDEMA. HER VITALS THIS MORNING ARE 97.7-95-22-100%-147/63. LABS WERE OBTAINED THIS MORNING. ABNORMAL LAB VALUES INCLUDE THE FOLLOWING: WBC 13.5, RBC 2.49, HGB 9.2, HCT 27.1 , SODIUM 135, CHLORIDE 96, CARBON DIOXIDE 32.3, CREATININE 1.06, GFR 53, GLUCOSE 128, ALK PHOS 38, TOTAL PROTEIN 5.9, ALBUMIN 3.0. SPUTUM CULTURES AND BLOOD CULTURES ARE PENDING. WE OBTAINED A CHEST XRAY TODAY. IT REPORTED SIGNIFICANT IMPROVEMENT COMPARED TO 12/07/17. PATIENT IS REFUSING THE TAMIFLU THAT WE STARTED YESTERDAY. TODAY, WE PLAN TO DISCONTINUE THE DUONEBS AND START XOPENEX NEB TX QID. OTHERWISE, WE WILL CONTINUE WITH CURRENT PLAN OF CARE. WE PLAN TO FOLLOW UP WITH AM LABS AND CONTINUE TO MONITOR PATIENT. - Past Medical Family Social History Past Med/Fam/Surg Hx: No changes since H&P Allergies: Allergies No Known Drug Allergies Allergy (Verified 12/07/17 22:54) - Review of Systems ROS: No change since H&P - Vital Signs and I&O's Vital Signs: Temperature 98.7 F Pulse Rate [Apical] 95 Pulse Rate 86 Respiratory Rate 20 Blood Pressure [Right Arm] 107/51 Blood Pressure [Left Arm] 127/88 Blood Pressure 175/93 O2 Sat by Pulse Oximetry 98 Intake and Output: Intake & Output 12/08/17 12/09/17 12/10/17 12/11/17 11:59 11:59 11:59 11:59 Intake Total 190 1862 3329 1460 Output Total 300 2100 4550 1000 Balance -110 -238 -1221 460 - Physical Exam Oriented: Normal. negative: Time, Person, Place, Not Oriented, Unable to test, Other Eyes: Normal. negative: Blurred Vision, Diplopia, Discharge, Pain, Redness, Photophobia, Other Ear: Normal. negative: Right, Left, Swelling, Ecchymosis, Hemotypanum, Abrasion , Laceration Nose: Normal. negative: Injected, Discharge, Blood, Other Throat: Normal. negative: Tonsillar Hypertrophy, Red, Exudate, Dry, Other Respiratory: Right, Left, Generalized, Wheezes, Rhonchi Cardiovascular: Normal, Edema (BIALTERAL LOWER EXTREMITY TRACE EDEMA). negative : S3, S4, Murmur : Normal. negative: Dysuria, Hematuria, Frequency, Discharge, Testicular Pain , Bleeding, , Other Auscultation: Bowel Sounds: Normal. negative: Bruit, Absent, Increased, Decreased, High Pitched, Other Palpation: Normal Tenderness: Normal. negative: Rebound, Guarding, Rigidity Skin: Normal Musculoskeletal: Normal Psychiatric: Normal. negative: Anxiety, Depression, Agitation, Other Mood Description: Calm Affect: Normal Speech Pattern: Clear, Appropriate - Laboratory and Diagnostics Result Diagrams: 12/10/17 05:41 12/10/17 05:41 Labs: 12/08/17 06:17 Sputum - Expectorated Sputum Sputum Culture - Final 12/08/17 06:17 Sputum - Expectorated Sputum - Final 12/07/17 19:33 Blood Blood Culture - Preliminary 12/07/17 19:41 Blood Blood Culture - Preliminary Laboratory WBC 13.7 X10^3/uL (3.6-10.0) H 12/10/17 05:41 RBC 2.48 X10^6/uL (3.5-5.4) L 12/10/17 05:41 Hgb 9.1 g/dL (12.0-16.0) L 12/10/17 05:41 Hct 27.2 % (36.0-47.0) L 12/10/17 05:41 MCV 109.4 fL (80.0-100.0) H 12/10/17 05:41 MCH 36.7 pg (27.0-34.0) H 12/10/17 05:41 MCHC 33.6 g/dL (33.0-35.0) 12/10/17 05:41 RDW 16.7 % (11.6-16.5) H 12/10/17 05:41 Plt Count 425 X10^3/uL (150.0-450.0) 12/10/17 05:41 Plt Count Comment Increased (ADEQUATE) A 12/10/17 05:41 MPV 8.9 fL (7.4-11.0) 12/10/17 05:41 Neut % 79.7 % (42.0-75.0) H 12/10/17 05:41 Lymph % 11.2 % (21.0-51.0) L 12/10/17 05:41 [place] % 6.6 % (0.0-13.0) 12/10/17 05:41 Eos % 1.7 % (0.9-2.9) 12/10/17 05:41 Baso % 0.8 % (0.2-1.0) 12/10/17 05:41 Neut # 11.0 x10^3/uL (2.2-4.8) H 12/10/17 05:41 Lymph # 1.5 X10^3/uL (1.3-2.9) 12/10/17 05:41 [place] # 0.9 x10^3/uL (0.3-0.8) H 12/10/17 05:41 Eos # 0.2 x10^3/uL (0.0-0.2) 12/10/17 05:41 Baso # 0.1 X10^3/uL (0.0-0.1) 12/10/17 05:41 Absolute Nucleated RBC 0.1 /100WBC 12/10/17 05:41 Total Counted 100 12/10/17 05:41 Neutrophils % (Manual) 75 % (39-76) 12/10/17 05:41 Band Neutrophils % 1 % (0-10) 12/10/17 05:41 Lymphocytes % (Manual) 15 % (13-43) 12/10/17 05:41 Monocytes % (Manual) 6 % (4-9) 12/10/17 05:41 Eosinophils % (Manual) 3 % (0-6) 12/10/17 05:41 Basophils % (Manual) 1 % (0-1) 12/07/17 19:20 Atypical Lymphocytes 2 12/08/17 07:45 Giant Platelets Few 12/10/17 05:41 Plt Morphology Comment Normal (NORMAL) 12/10/17 05:41 RBC Morphology Normal (NORMAL) 12/10/17 05:41 Poikilocytosis Slight A 12/09/17 05:55 Macrocytosis Slight A 12/09/17 05:55 INR Target Range - 12/07/17 19:06 INR 1.18 (0.8-1.3) 12/07/17 19:06 PTT 32.0 SECONDS (22.9-36.5) 12/07/17 19:06 PTT Comment - 12/07/17 19:06 D-Dimer Cancelled 12/07/17 19:20 Sample Site Rrad 12/07/17 22:50 ABG pH 7.470 (7.35-7.45) H 12/07/17 22:50 ABG pCO2 44.0 mmHg (35.0-45.0) 12/07/17 22:50 ABG pO2 100.0 mmHg (80.0-100.0) 12/07/17 22:50 ABG HCO3 32.0 mmol/L (22-26) H* 12/07/17 22:50 ABG O2 Saturation 98.0 % (90-100) 12/07/17 22:50 ABG Base Excess 7.4 mmol/L (-2.0-2.0) H 12/07/17 22:50 [place] Test Pos 12/07/17 22:50 A-a Gradient 95.0 mmHg 12/07/17 22:50 FiO2 35 12/07/17 22:50 Blood Gas Comments Nam abg well 12/07/17 22:50 Sodium 137 mmol/L (136-145) 12/10/17 05:41 Corrected Sodium TNP 12/10/17 05:41 Potassium 3.5 mmol/L (3.5-5.1) 12/10/17 05:41 Chloride 98 mmol/L (98-107) 12/10/17 05:41 Carbon Dioxide 30.5 mmol/L (21-32) 12/10/17 05:41 BUN 12 mg/dL (7-18) 12/10/17 05:41 Creatinine 0.94 mg/dL (0.55-1.02) 12/10/17 05:41 Est GFR (MDRD) Af Amer > 60 (>60) 12/10/17 05:41 Est GFR (MDRD) Non-Af > 60 (>60) 12/10/17 05:41 Glucose 82 mg/dL (65-99) 12/10/17 05:41 Lactic Acid 0.5 mmol/L (0.4-2.0) 12/07/17 20:51 Calcium 8.4 mg/dL (8.5-10.1) L 12/10/17 05:41 Corrected Calcium 9.4 mg/dL (8.5-10.1) 12/10/17 05:41 Magnesium 2.0 mg/dL (1.7-2.9) 12/07/17 19:06 Total Bilirubin 0.60 mg/dL (0.2-1.0) 12/10/17 05:41 AST 18 Units/L (15-37) 12/10/17 05:41 ALT 18 Units/L (12-78) 12/10/17 05:41 Alkaline Phosphatase 40 Units/L (46-116) L 12/10/17 05:41 Creatine Kinase 24 Units/L (26-192) L 12/08/17 07:45 CK-MB (CK-2) 1.1 ng/mL (0-4.0) 12/08/17 07:45 CK/CKMB % Calc 4.6 % (<4) 12/08/17 07:45 Troponin I 0.22 ng/mL (0-1.5) 12/08/17 07:45 C-Reactive Protein Cancelled 12/07/17 19:20 B-Natriuretic Peptide Cancelled 12/07/17 19:20 Total Protein 5.7 g/dL (6.4-8.2) L 12/10/17 05:41 Albumin 2.8 g/dL (3.4-5.0) L 12/10/17 05:41 Globulin 2.9 g/dL (2.5-4.5) 12/10/17 05:41 Albumin/Globulin Ratio 1.0 Ratio (1.1-2.1) L 12/10/17 05:41 Specimen Type Catherized urine 12/07/17 21:01 Urine Color Yellow (YELLOW) 12/07/17 21:01 Urine Appearance Hazy (CLEAR) 12/07/17 21:01 Urine pH 6.5 (5.0 - 8.0) 12/07/17 21:01 Ur Specific [place] 1.015 (1.000-1.030) 12/07/17 21:01 Urine Protein 3+ (NEGATIVE) 12/07/17 21:01 Urine Glucose (UA) Negative (NEGATIVE) 12/07/17 21:01 Urine Ketones Negative (NEGATIVE) 12/07/17 21:01 Urine Occult Blood 3+ (NEGATIVE) 12/07/17 21: Urine Nitrite Negative (NEGATIVE) 12/07/17 21: Urine Bilirubin Negative (NEGATIVE) 12/07/17 21:01 Urine Urobilinogen Normal (NORMAL) 12/07/17 21:01 Ur Leukocyte Esterase Negative (NEGATIVE) 12/07/17 21: Urine RBC 0-2 /HPF (NEGATIVE) 12/07/17 21:01 Urine WBC 0-2 /HPF (NEGATIVE) 12/07/17 21:01 Ur Squamous Epith Cells Negative /HPF (NEGATIVE) 12/07/17 21:01 Urine Bacteria Trace /HPF (NEGATIVE) 12/07/17 21:01 Ur Culture Indicated? No/not indicated 12/07/17 21:01 - Plan (1) Multifocal pneumonia Status: Acute Plan: pneumonia protocol, levaquin 750mg iv daily, fortaz 1gm iv q8h, Xopenex respiratory txs, bipap, continue to monitor (2) Respiratory distress Status: Acute Plan: bipap/supplemental oxygen, respiratory tx, monitor abg, labs, and chest xray (3) Influenza Status: Acute Plan: tamiflu 75mg po bid, continue to monitor (4) Congestive heart failure Status: Acute Qualifiers: Congestive heart failure type: unspecified Congestive heart failure chronicity: acute on chronic Qualified Code(s): I50.9 - Heart failure, unspecified Plan: continue lasix 40mg po bid, continue to monitor
[2017-12-10] MEDS ORDERED: NS 1/2 1000 ML IV 1,000 ML IV ONE (23:49)
[2017-12-11] MEDS: NS 1/2 1000 ML IV 1,000 ML IV SCH (00:01)
[2017-12-11] MEDS: FORTAZ or TAZICEF INJ 1 GM in NS 100 ML IV + SPIKE MINIBAG* 100 ML IV SCH (05:07)
[2017-12-11 06:25] LABS: BASOPHILS # (AUTO) 0.1 X10^3/uL (0.0-0.1); BASOPHILS % (AUTO) 0.9 % (0.2-1.0); EOSINOPHILS # (AUTO) 0.2 x10^3/uL (0.0-0.2); EOSINOPHILS % (AUTO) 1.3 % (0.9-2.9); HEMATOCRIT 25.8 % (36.0-47.0); HEMOGLOBIN 8.5 g/dL (12.0-16.0); LYMPHOCYTES # (AUTO) 1.6 X10^3/uL (1.3-2.9); LYMPHOCYTES % (AUTO) 10.9 % (21.0-51.0); MEAN CORPUSCULAR HEMOGLOBIN 35.7 pg (27.0-34.0); MEAN CORPUSCULAR HGB CONC 32.9 g/dL (33.0-35.0); MEAN CORPUSCULAR VOLUME 108.6 fL (80.0-100.0); MEAN PLATELET VOLUME 9.1 fL (7.4-11.0); MONOCYTES # (AUTO) 0.8 x10^3/uL (0.3-0.8); MONOCYTES % (AUTO) 5.7 % (0.0-13.0); NEUTROPHILS # (AUTO) 11.8 x10^3/uL (2.2-4.8); NEUTROPHILS % (AUTO) 81.2 % (42.0-75.0); PLATELET COUNT 393 X10^3/uL (150.0-450.0); RED BLOOD COUNT 2.38 X10^6/uL (3.5-5.4); RED CELL DISTRIBUTION WIDTH 16.6 % (11.6-16.5); WHITE BLOOD COUNT 14.6 X10^3/uL (3.6-10.0)
[2017-12-11 06:35] LABS: ALANINE AMINOTRANSFERASE 16 Units/L (12-78); ALBUMIN 2.6 g/dL (3.4-5.0); ALKALINE PHOSPHATASE 39 Units/L (46-116); ASPARTATE AMINO TRANSFERASE 21 Units/L (15-37); BLOOD UREA NITROGEN 19 mg/dL (7-18); CALCIUM 8.3 mg/dL (8.5-10.1); CARBON DIOXIDE 30.6 mmol/L (21-32); CHLORIDE 100 mmol/L (98-107); COR CA(FOR HYPOALB) 9.4 mg/dL (8.5-10.1); CREATININE 1.06 mg/dL (0.55-1.02); SODIUM 136 mmol/L (136-145); TOTAL PROTEIN 5.5 g/dL (6.4-8.2); eGFR BLACK RACES > 60 (>60); eGFR NON BLACK RACES 53 (>60)
--- NOTE | 2017-12-11 06:49 | RAD ---
Examination: Portable AP chest History: Pneumonia Comparison 12/10/2017 Findings: Stable cardiac size. Mild persistent bilateral perihilar process consistent with residual i nfection/edema. No new abnormality demonstrated. Impression: No interval change since 1 day earlier. Reported By:
[2017-12-11 07:18] LABS: BAND NEUTROPHILS % 6 % (0-10); PLATELET MORPHOLOGY COMMENT NORMAL (NORMAL)
[2017-12-11] MEDS: HEMOCYTE-PLUS PO SCH (09:41)
[2017-12-11] MEDS: MEGACE PO SCH (09:41)
[2017-12-11] MEDS: TAMIFLU PO SCH (09:41)
[2017-12-11] MEDS: LASIX PO SCH (09:42)
[2017-12-11] MEDS: SYNTHROID 75 mcg TAB PO SCH (09:42)
[2017-12-11] MEDS: ALTACE CAP 10 MG PO SCH (09:43)
[2017-12-11] MEDS: COREG TAB 6.25 MG PO SCH (09:43)
[2017-12-11] MEDS: ECOTRIN TAB 325 MG PO SCH (09:43)
[2017-12-11] MEDS: ROBITUSSIN DM PO SCH (09:45)
[2017-12-11] MEDS: LEVAQUIN PREMIX IV 750 MG 750 MG/150 ML BAG IV SCH (09:45)
[2017-12-11] MEDS: XOPENEX 1.25 MG/3 ML NEBULE NEB SCH (10:04)
[2017-12-11 10:33] VITALS: BP 149/77
[2017-12-11] MEDS: EVISTA PO SCH (11:16)
[2017-12-11] MEDS: TAB-A-VITE PO SCH (11:16)
== END 2017-12-11 13:15 | disposition home health service (06) | DRG 193 ==
LOC: ER 19:16 → ICU 22:22
PROVIDERS: ADMIT Internal Medicine; ATTEND Internal Medicine
DX: J18.8 Other pneumonia, unspecified organism (principal); R06.02 Shortness of breath; R06.03 Acute respiratory distress; J81.0 Acute pulmonary edema; R94.31 Abnormal electrocardiogram [ECG] [EKG]; I50.9 Heart failure, unspecified; R53.1 Weakness; J11.1 Influenza due to unidentified influenza virus with other respiratory manifestations
CPT/HCPCS: 36415; 36600; 51702; 71045; 71275; 80053; 81001; 82550; 82553; 82803; 83605; 83735; 83880; 84484; 85025; 85378; 85610; 85730; 86140; 87040; 87070; 87205; 93005; 94640; 94660; 96365; 96374; 96375; 99284; A4222; A4618; A7030; G9035; S0179; J0696; J0713; J1940; J1956; J3490; J7620